=== PATIENT | male | born 1970 | race Caucasian/White ===

== ENCOUNTER 2020-11-11 12:40 | Emergency (ER) | payer OTHER, SELFPAY ==
--- NOTE | ~2020-11-11 | XR_ITS ---
EXAMINATION: XR CHEST CLINICAL INFORMATION: Shortness of breath and fever COMPARISON: None TECHNIQUE: Frontal view of the chest was obtained. FINDINGS: Cardiac silhouette is normal in size. The lungs are well aerated. No lobar consolidation. No pleural effusion or pneumothorax. No acute osseous abnormality. XR/XR chest 1V IMPRESSION: No acute pulmonary pathology.
[2020-11-11 13:09] VITALS: BP 120/70; PULSE 122; RESP 19; TEMP 38.1; O2SAT 96; BMI 47.3
--- NOTE | 2020-11-11 13:49 | ED.FEVER ---
HPI - Fever General Chief Complaint: Fever Stated Complaint: FEVER HEADACHE Time Seen by Provider: 11/11/20 13:32 Source: patient Mode of arrival: ambulatory Limitations: no limitations History of Present Illness HPI Narrative: 50 y/o male presenting with 4 days of fever, chills and increased urinary frequency with dysuria. Tmx 101 at home. He reports two days ago he also started with generalized weakness, fatigue and decreased appetite. He has been SOB with exertion today with persistent weakness prompting ER evaluation. He has never had a UTI before. He has no back pain or abdominal pain. He reports nausea but not vomiting or diarrhea. He is not sexually active. No testicular pain. MD elicited complaint: fever and weakness Onset (ago): day(s) (4) Measured temperature: 101 F Exacerbating factors: nothing Relieving factors: rest Associated symptoms: chills, myalgias, headache, shortness of breath, dysuria and night sweats Treatments prior to arrival fever: none Related Data Previous Rx's Medication Instructions Recorded levofloxacin 750 mg PO DAILY 7 Days #7 tab 11/11/20 Allergies Allergy/AdvReac Type Severity Reaction Status Date / Time Seasonal Allergies Allergy Itchy Eyes Verified 11/11/20 14:50 Review of Systems Review of Systems: Constitutional: No Fever, No Chills ENT/Mouth: No sore throat, No Rhinorrhea, No Swallowing Difficulty Eyes: No Eye Pain, No Swelling, No Redness Cardiovascular: No Chest Pain, No SOB, No Orthopnea, No Edema Respiratory: No Cough, No Sputum, No Wheezing, No dyspnea Gastrointestinal: No Nausea, No Vomiting, No Diarrhea, No abdominal Pain, No Hematochezia, No Melena Genitourinary: No Dysuria, No Urinary Frequency, No Hematuria Musculoskeletal: No joint pain, No Myalgias Skin: No Skin Lesions, No rash Neuro: No Weakness, No Numbness, No Dizziness, No Headache Psych: No Anxiety/Panic, No Depression Heme/Lymph: No Bruising, No Lymphadenopathy Endocrine: No Polyuria, No Polydipsia [facility] Past Medical History Medical History (Updated 11/11/20 @ 17:23 by DORIS Jorge) FH: cholecystectomy Obesity (BMI 35.0-39.9 without comorbidity) Social History Social History Alcohol intake: current Alcohol intake frequency: holidays/special occasions only Smoking Status: Never smoker Use of substances other than those prescribed or required for medical reasons: No Advance Directives: No Advance Directives Information Provided: No Physical Exam Vital Signs: Vital Signs: Last Vital Signs Temp 99.1 F 11/11/20 16:51 Pulse 95 11/11/20 16:51 Resp 18 11/11/20 16:51 BP 119/53 L 11/11/20 16:51 Pulse Ox 95 11/11/20 16:51 Body Mass Index 47.3 Appearance: Alert. Oriented X3. No acute distress. Eyes: Pupils equal, round and reactive to light. ENT: Pharynx normal. Neck: Normal inspection. Neck supple. CVS: tachycar Pulses normal. Respiratory: No respiratory distress. Breath sounds normal. Abdomen: Soft and nontender. +BS x4 Skin: Skin warm and dry. Normal skin color. Normal skin turgor. No rashes. Extremities: No lower extremity edema. Neuro: Oriented X 3. No motor deficit. No sensory deficit. Course Course Course Narrative: 50 y/o male with no significant medial history presenting with fever, chills, malaise, generalized weakness and urinary symptoms. Concern for UTI. Febrile 100.5 with HR 120s on arrival. Mild SOB walking in, otherwise appears non-toxic. Will get cultures, labs, UA and hydrate with IVF and give Tylenol. Reevaluation(s) Reevaluation #1: UA + for infection. Rocephin and 2nd liter ordered. BP remains stable. Lactic acid normal. WBC 18K. Clinical presentation consistent with sepsis. He is non-toxic appearing. No signs of organ dysfunction at this time. Reevaluation #2: Normal renal function. He has no abdominal pain, back pain, nausea or vomiting. Doubt pyelonephritis at this time. Will hold off on CT scan for now. HR improved to low 100's after 2L IVF. Tbili/Dbili mildly elevated with normal LFTs. He is s/p cholecystectomy and has no RUQ tenderness. Reevaluation #3: Patient is starting to feel better with IV hydration. Getting 2nd liter now and IV abx are in. His HR are improved. NO clinical evidence of severe sepsis. We discussed admission vs d/c home with PO antibiotics. Case was also d/w Dr. Be. Patient would prefer to be discharged home. He is requesting a 3rd liter IVF and he was given PO trial. He continue to have no abdominal pain or vomiting. Reasonable to send home with PO levaquin and follow up with PCP with strict instructions to return if symptoms worsening. Will reassess in 1 hour. Signed out to Courtney Quevedo who will re-evaluate with plans for d/c if remains stable. MDM - Fever Lab Data Result diagrams: 11/11/20 14:41 11/11/20 14:41 Labs: Lab Results 11/11/20 11/11/20 11/11/20 Range/Units 14:40 14:41 14:41 WBC 18.1 H (4.8-10.8) X10*3/uL RBC 5.16 (4.60-5.80) X10*6/uL Hgb 14.4 (14.0-18.0) g/dl Hct 43.8 (42-52) % MCV 84.9 (80-98) fL MCH 27.9 (27.0-33.0) pg MCHC 32.9 (31.0-36.0) g/dl RDW 14.0 (11.0-16.0) % Plt Count 256 (160-400) X10*3/uL MPV 11.0 (9.4-12.4) fL Immature Gran % (Auto) 0.7 H (0.0-0.4) % Neut % (Auto) 90.5 H (45-73) % Lymph % (Auto) 4.3 L (20-40) % [place] % (Auto) 3.7 (2-11) % Eos % (Auto) 0.6 (0-4) % Baso % (Auto) 0.2 (0-2) % Lymph # (Auto) 0.8 L (1.2-4.9) X10*3/uL [place] # (Auto) 0.7 (0.1-1.2) X10*3/uL Eos # (Auto) 0.1 (0.0-0.4) X10*3/uL Baso # (Auto) 0.0 (0.0-0.2) X10*3/uL Abs Immat Gran (auto) 0.12 H (0.00-0.03) X10*3/uL Absolute Neuts (auto) 16.4 H (2.0-8.3) X10*3/uL Absolute Nucleated RBC 0.000 (0.0-0.012) X10*3/uL Nucleated RBC % (auto) 0.0 (0.0-0.2) /100WBC Smear Tech's Comments VERIFIED Sodium 136 (135-145) mmol/L Potassium 3.8 (3.3-5.1) mmol/L Chloride 99 (96-108) mmol/L Carbon Dioxide 25 (22-29) mmol/L Anion Gap 16 (12-20) BUN 15 (9-16) mg/dL Creatinine 1.22 (0.5-1.4) mg/dL Estim Creat Clear Calc 106.2 Estimated GFR > 60 Random Glucose 131 H (60-115) mg/dL Lactic Acid (0.5-2.0) mmol/L Calcium 9.0 (8.4-10.2) mg/dL Magnesium 2.1 (1.6-2.6) mg/dL Total Bilirubin 1.4 H (0.0-1.0) mg/dL Direct Bilirubin 0.6 H (0.0-0.5) mg/dL AST 16 (5-37) U/L ALT 19 (0-40) U/L Alkaline Phosphatase 85 (39-117) U/L Total Protein 8.3 H (6.5-8.0) g/dL Albumin 4.3 (3.5-5.0) g/dL Urine Color Urine Appearance Urine pH (5.0-8.0) Ur Specific [place] (1.005-1.025) Urine Protein (NEG-TRACE) MG/DL Urine Glucose (UA) (NEG) MG/DL Urine Ketones (NEG) MG/DL Urine Blood (NEG) Urine Nitrite (NEG) Ur Leukocyte Esterase (NEG) Urine RBC (0) /HPF Urine WBC (0-4) /HPF Ur Squamous Epith Cells /LPF Urine Bacteria /LPF Coronavirus (PCR) NEGATIVE (Negative) Influenza Type A (PCR) NEGATIVE (Negative) Influenza Type B (PCR) NEGATIVE (Negative) RSV RNA Qual (PCR) NEGATIVE (Negative) 11/11/20 11/11/20 Range/Units 14:41 14:42 WBC (4.8-10.8) X10*3/uL RBC (4.60-5.80) X10*6/uL Hgb (14.0-18.0) g/dl Hct (42-52) % MCV (80-98) fL MCH (27.0-33.0) pg MCHC (31.0-36.0) g/dl RDW (11.0-16.0) % Plt Count (160-400) X10*3/uL MPV (9.4-12.4) fL Immature Gran % (Auto) (0.0-0.4) % Neut % (Auto) (45-73) % Lymph % (Auto) (20-40) % [place] % (Auto) (2-11) % Eos % (Auto) (0-4) % Baso % (Auto) (0-2) % Lymph # (Auto) (1.2-4.9) X10*3/uL [place] # (Auto) (0.1-1.2) X10*3/uL Eos # (Auto) (0.0-0.4) X10*3/uL Baso # (Auto) (0.0-0.2) X10*3/uL Abs Immat Gran (auto) (0.00-0.03) X10*3/uL Absolute Neuts (auto) (2.0-8.3) X10*3/uL Absolute Nucleated RBC (0.0-0.012) X10*3/uL Nucleated RBC % (auto) (0.0-0.2) /100WBC Smear Tech's Comments Sodium (135-145) mmol/L Potassium (3.3-5.1) mmol/L Chloride (96-108) mmol/L Carbon Dioxide (22-29) mmol/L Anion Gap (12-20) BUN (9-16) mg/dL Creatinine (0.5-1.4) mg/dL Estim Creat Clear Calc Estimated GFR Random Glucose (60-115) mg/dL Lactic Acid 2.0 (0.5-2.0) mmol/L Calcium (8.4-10.2) mg/dL Magnesium (1.6-2.6) mg/dL Total Bilirubin (0.0-1.0) mg/dL Direct Bilirubin (0.0-0.5) mg/dL AST (5-37) U/L ALT (0-40) U/L Alkaline Phosphatase (39-117) U/L Total Protein (6.5-8.0) g/dL Albumin (3.5-5.0) g/dL Urine Color YELLOW Urine Appearance CLOUDY Urine pH 6.0 (5.0-8.0) Ur Specific [place] >= 1.030 H (1.005-1.025) Urine Protein 2+ H (NEG-TRACE) MG/DL Urine Glucose (UA) NEG (NEG) MG/DL Urine Ketones 40 (NEG) MG/DL Urine Blood 2+ H (NEG) Urine Nitrite POS H (NEG) Ur Leukocyte Esterase 2+ H (NEG) Urine RBC 10-14 H (0) /HPF Urine WBC TNTC H (0-4) /HPF Ur Squamous Epith Cells NONE /LPF Urine Bacteria 2+ /LPF Coronavirus (PCR) (Negative) Influenza Type A (PCR) (Negative) Influenza Type B (PCR) (Negative) RSV RNA Qual (PCR) (Negative) Discharge Plan Discharge Clinical Impression: Acute UTI Patient Disposition: Home, Self-Care Instructions: Urinary Tract Infection in Men (ED) Additional Instructions: Your urine test is consistent with infection. You were given IV hydration in the ER. Increase you oral hydration at home and make sure to drink plenty of water. Take the prescribed antibiotic as directed - starting tomorrow morning. Take motrin and/or tylenol as needed for fevers or body aches. Follow up with your doctor tomorrow. If you have any worsening symptoms at all, come back to the ER for further evaluation. Prescriptions: New levofloxacin 750 mg tablet 750 mg PO DAILY 7 Days Qty: 7 RF: 0 Stand Alone Forms: Work/School Release
[2020-11-11 14:07] VITALS: TEMP 38.3
[2020-11-11] MEDS: Acetaminophen 325 MG TABLET 975 MG PO (14:50)
[2020-11-11 14:52] LABS: Basophils Percent Auto 0.2 % (0-2); Eosinophils Absolute Auto 0.1 X10*3/uL (0.0-0.4); Eosinophils Percent Auto 0.6 % (0-4); Hematocrit 43.8 % (42-52); Hemoglobin 14.4 g/dl (14.0-18.0); Imm Gran Abs Auto 0.12 X10*3/uL (0.00-0.03); Imm Gran Pct Auto 0.7 % (0.0-0.4); Lymphocytes Absolute Auto 0.8 X10*3/uL (1.2-4.9); Lymphocytes Percent Auto 4.3 % (20-40); MANUAL DIFF FLAG SCAN; Mean Corpuscular HGB Conc 32.9 g/dl (31.0-36.0); Mean Corpuscular Hemoglobin 27.9 pg (27.0-33.0); Mean Corpuscular Volume 84.9 fL (80-98); Monocytes Absolute Auto 0.7 X10*3/uL (0.1-1.2); Monocytes Percent Auto 3.7 % (2-11); Neutrophils Absolute Auto 16.4 X10*3/uL (2.0-8.3); Neutrophils Percent Auto 90.5 % (45-73); Platelet Count 256 X10*3/uL (160-400); Red Blood Count 5.16 X10*6/uL (4.60-5.80); SCAN SMEAR FLAG 1; White Blood Count 18.1 X10*3/uL (4.8-10.8)
[2020-11-11 14:53] LABS: Glucose Urine UA NEG (NEG); Leukocyte Esterase Urine 2+ (NEG); Nitrite Urine POS (NEG); Specific Gravity - Urine >= 1.030 (1.005-1.025); UACC Culture Trigger YES; Urine Blood 2+ (NEG); Urine Ketones 40 MG/DL (NEG); Urine Protein 2+ MG/DL (NEG-TRACE)
[2020-11-11] MEDS: 0.9 % Sodium Chloride 1,000 ML 999 ML IVCONT ×2 (14:53→16:48)
[2020-11-11 14:54] LABS: Appearance Urine CLOUDY; Color Urine YELLOW
[2020-11-11 14:55] VITALS: BP 131/80; PULSE 117; RESP 18; O2SAT 99
[2020-11-11 15:02] LABS: Bacteria Urine 2+ /LPF; WBC Urine TNTC /HPF (0-4)
[2020-11-11 15:16] LABS: Alanine Aminotransferase 19 U/L (0-40); Albumin Level 4.3 g/dL (3.5-5.0); Alkaline Phosphatase 85 U/L (39-117); Anion Gap 16 (12-20); Aspartate Amino Transferase 16 U/L (5-37); Bilirubin Direct 0.6 mg/dL (0.0-0.5); Bilirubin Total 1.4 mg/dL (0.0-1.0); Blood Urea Nitrogen 15 mg/dL (9-16); Carbon Dioxide 25 mmol/L (22-29); Chloride 99 mmol/L (96-108); Creatinine Clr Calc Pharmacy 106.2; Estimated Glomerular Filt Rate > 60; Glucose Random 131 mg/dL (60-115); Magnesium 2.1 mg/dL (1.6-2.6); Potassium 3.8 mmol/L (3.3-5.1); Sodium 136 mmol/L (135-145); Total Protein 8.3 g/dL (6.5-8.0)
[2020-11-11 15:31] LABS: SLIDE REVIEW VERIFIED
[2020-11-11 15:40] LABS: Influenza A PCR NEGATIVE (Negative); Influenza B PCR NEGATIVE (Negative); Resp Syncy Virus RNA Qual PCR NEGATIVE (Negative); SARS COV2 PCR INHOUSE NEGATIVE (Negative)
[2020-11-11] MEDS: cefTRIAXone sodium 1 GM in 0.9 % Sodium Chloride 50 ML IV (16:48)
[2020-11-11 16:51] VITALS: BP 119/53; PULSE 95; RESP 18; TEMP 37.3; O2SAT 95
--- NOTE | 2020-11-11 16:52 | PC.NURSE ---
Pt resting comfortably. IVF and antibiotic infusing. VSS. Fever improving after tylenol.
[2020-11-11] MEDS: Lactated Ringers 1,000 ML 999 ML IV (17:57)
== END 2020-11-11 20:56 | disposition home or self-care (01) ==
PROVIDERS: Physician Assistant; Emergency Provider Emergency Medicine
DX: N39.0 Urinary tract infection, site not specified (principal); R50.9 Fever, unspecified; R35.0 Frequency of micturition; Z20.822 Contact with and (suspected) exposure to COVID-19; Z79.899 Other long term (current) drug therapy
CPT/HCPCS: 0241U; 36415; 71045; 80048; 80076; 81001; 81003; 83605; 83735; 85025; 87040; 87086; 87088; 87186; 96360; 96361; 99284; J0696

== ENCOUNTER 2021-07-03 07:48 | Outpatient (REF) | payer OTHER, SELFPAY ==
[2021-07-03 08:27] LABS: COVID-19 Test Negative (Negative)
== END 2021-07-03 07:49 | disposition home or self-care (01) ==
LOC: HO.ED 07:48
PROVIDERS: Visit Provider Internal Medicine
DX: Z20.822 Contact with and (suspected) exposure to COVID-19 (principal)
CPT/HCPCS: 36415; 87635

== ENCOUNTER 2021-07-11 07:52 | Outpatient (REF) | payer OTHER, SELFPAY ==
[2021-07-11 08:35] LABS: COVID-19 Test Negative (Negative)
== END 2021-07-11 07:53 | disposition home or self-care (01) ==
LOC: HO.ED 07:52
PROVIDERS: Internal Medicine; Visit Provider Internal Medicine
DX: Z20.822 Contact with and (suspected) exposure to COVID-19 (principal)
CPT/HCPCS: 36415; 87635

== ENCOUNTER 2022-01-25 03:08 | Emergency (ER) | payer OTHER, SELFPAY ==
--- NOTE | ~2022-01-25 | XR_ITS ---
EXAMINATION: XR HAND, LEFT CLINICAL INFORMATION: Pain over scaphoid. COMPARISON: None TECHNIQUE: PA, lateral, and oblique views of the left hand. FINDINGS: The bones and soft tissues are normal. No fracture. Alignment is anatomic. Joint spaces are maintained. No erosions or soft tissue calcifications. XR/XR hand LT 2V IMPRESSION: Normal left hand.
[2022-01-25 03:18] VITALS: BP 147/76; PULSE 87; RESP 16; TEMP 36.6; O2SAT 98; BMI 48.7
--- NOTE | 2022-01-25 03:29 | ED_ITS ---
HPI - Fall General Chief Complaint: Fall Stated Complaint: fall @ home, L arm pain unable to extend Time Seen by Provider: 01/25/22 03:23 Source: patient Mode of arrival: ambulatory Limitations: no limitations History of Present Illness HPI Narrative: Patient comes to the emergency room complaining of pain in his left arm, fall happened for 24 hours ago. Patient states that when he was coming to work this morning, he noticed that he had trouble stretching his arm, he has been having pain radiating from the thumb up to his forearm. Patient took ibuprofen prior to arrival. Patient fell on an outstretched hand. Patient states that he fell walking down the stairs, slipped. Related Data Previous Rx's Medication Instructions Recorded levofloxacin 750 mg tablet 750 mg PO DAILY 7 days #7 tabs 11/11/20 Allergies Allergy/AdvReac Type Severity Reaction Status Date / Time Seasonal Allergies Allergy Itchy Eyes Verified 01/25/22 03:28 Review of Systems Review of Systems: Constitutional : No Weight loss, No Fever, No Chills, No Night Sweats, No Fatigue, No Malaise ENT/Mouth : No Hearing loss, No Ear Pain, No Nasal Congestion, No Sinus Pain, No Hoarseness, No sore throat, No Rhinorrhea, No Swallowing Difficulty Eyes: No Eye Pain, No Swelling, No Redness, No Foreign Body, No Discharge, No Vision Changes Cardiovascular : No Chest Pain, No SOB, No Dyspnea on Exertion, No Orthopnea, No Edema, No Palpitations Respiratory : No Cough, No Sputum, No Wheezing, No Smoke Exposure, No Dyspnea Gastrointestinal : No Nausea, No Vomiting, No Diarrhea, No Constipation, No abdominal Pain, No Hematochezia, No Melena Genitourinary : no irregular bleeding, No Dysuria, No Urinary Frequency, No Hematuria, No Urinary Incontinence, No Urgency, No Flank Pain, No Urinary Flow Changes, No Hesitancy Musculoskeletal : No joint pain, 2 in the morning quit in stretch completely his left arm, no able to do so. Skin : No Skin Lesions, No rash Neuro : No Weakness, No Numbness, No Paresthesias, No Loss of Consciousness, No Dizziness, No Headache Psych : No Anxiety/Panic, No Depression, No SI/HI/AH/VH, No Social Issues, Heme/Lymph: No Bruising, No Bleeding,No Lymphadenopathy Endocrine : No Polyuria, No Polydipsia, No Temperature Intolerance PMFSH Past Medical History Medical History FH: cholecystectomy Obesity (BMI 35.0-39.9 without comorbidity) Social History Social History Alcohol intake: current Alcohol intake frequency: holidays/special occasions only Advance Directives: No Advance Directives Information Provided: Yes Physical Exam Vital Signs: Vital Signs: Last Vital Signs Temp 97.9 F 01/25/22 03:18 Pulse 87 01/25/22 03:18 Resp 16 01/25/22 03:18 BP 147/76 H 01/25/22 03:18 Pulse Ox 98 01/25/22 03:18 O2 Del Method 01/25/22 03:18 BMI result Body Mass Index 48.7 Const: Other: Appearance: Alert. Oriented X3. No acute distress. Eyes: Pupils equal, round and reactive to light. ENT: Pharynx normal. Neck: Normal inspection. Neck supple. No lymph nodes noted. No crepitus CVS: Normal heart rate and rhythm. Pulses normal. Normal S1 and S2 Respiratory: No respiratory distress. Breath sounds normal. No Wheezing. No rales Abdomen: Soft and nontender. No rigidity. No distention. Skin: Skin warm and dry. Normal skin color. Normal skin turgor. Extremities: No lower extremity edema. No pain in the right extremity, no pain in the left shoulder, able to abduct and adduct with full range of motion, range of motion normal at the elbow, no pain to palpation. Patient is able to flex and extend the wrist. There is no snuffbox tenderness. However there is significant tenderness to palpation over the scaphoid Neuro: Oriented X 3. No motor deficit. No sensory deficit. Moving all extremities. No slurred speech. CN 2 through 12 grossly intact Psych: calm, cooperative, normal affect Course Course Course Narrative: X-rays negative for fracture. However, patient is to follow up with his primary care physician or Orthopedics, he may need to have a 2nd x-ray. Patient's hand was put in a splint. MDM - Fall Imaging Data Hand x-ray.: Radiologist's impression: FINDINGS: The bones and soft tissues are normal. No fracture. Alignment is anatomic. Joint spaces are maintained. No erosions or soft tissue calcifications.? XR/XR hand LT 2V IMPRESSION: Normal left hand Discharge Plan Discharge Clinical Impression: Arm pain, left, Hand pain, left Patient Disposition: Home, Self-Care Instructions: Wrist Injury (ED), Arthralgia (ED) Additional Instructions: Please follow-up with your primary care physician tomorrow. If you have any worsening or new symptoms, please return to the emergency room or call 911 Prescriptions: No Action levofloxacin 750 mg tablet 750 mg PO DAILY 7 Days Qty: 7 0RF Referrals: Gabriela Xiong PA-C [Phys[facility] [employer]] - 1 day (pain over scaphoid)
--- NOTE | 2022-01-25 03:55 | PC.NURSE ---
Put a vulnar splint on pt left hand. pt tolerated well.
== END 2022-01-25 04:31 | disposition home or self-care (01) ==
PROVIDERS: Emergency Provider Emergency Medicine
DX: M79.602 Pain in left arm (principal); M79.642 Pain in left hand; Z79.899 Other long term (current) drug therapy
CPT/HCPCS: 29105; 73120; 99283; 99284

== ENCOUNTER 2022-02-11 09:08 | Outpatient (REF) | payer OTHER, SELFPAY ==
--- NOTE | ~2022-02-11 | XR_ITS ---
EXAMINATION: XR ELBOW, LEFT CLINICAL INFORMATION: Pain. COMPARISON: None TECHNIQUE: AP, lateral, and oblique views of the left elbow. FINDINGS: There is a subtle lucency through the radial neck suspicious for a fracture. However there is no positive anterior or posterior fat pad sign. There is mild prominence of brachioradialis. XR/XR elbow LT min 3V IMPRESSION: Suspect nondisplaced fracture radial neck. The anterior and posterior fat pad sign is normal. Recommend follow-up left elbow x-ray in 1-2 weeks.
== END 2022-02-11 09:09 | disposition home or self-care (01) ==
LOC: HO.HOSX 09:08
PROVIDERS: Visit Provider Physician Assistant
DX: M25.522 Pain in left elbow (principal)
CPT/HCPCS: 73080

== ENCOUNTER 2022-02-25 05:25 | Outpatient (REF) | payer OTHER, SELFPAY ==
[2022-02-25 06:01] LABS: COVID-19 Test Positive (Negative)
== END 2022-02-25 05:26 | disposition home or self-care (01) ==
LOC: HO.LAB 05:25
PROVIDERS: Visit Provider Internal Medicine
DX: Z20.822 Contact with and (suspected) exposure to COVID-19 (principal)
CPT/HCPCS: 87635

== ENCOUNTER 2022-03-12 07:19 | Outpatient (REF) | payer OTHER, SELFPAY ==
--- NOTE | ~2022-03-12 | XR_ITS ---
EXAMINATION: XR ELBOW, LEFT CLINICAL INFORMATION: Pain. COMPARISON: Radiographs dated 01/13/2020 TECHNIQUE: AP, lateral, and oblique views of the left elbow. FINDINGS: Bony mineralization is normal. A healed left radial head fracture is suspected, with possible impaction component. No acute fracture, dislocation or joint effusion is seen. There is no foreign body. XR/XR elbow LT min 3V IMPRESSION: A healed left radial head fracture is suspected, with stable appearance from prior. No acute fracture or dislocation is seen. There is no joint effusion noted.
== END 2022-03-12 07:20 | disposition home or self-care (01) ==
LOC: HO.HOSX 07:19
PROVIDERS: Visit Provider Physician Assistant
DX: M25.522 Pain in left elbow (principal)
CPT/HCPCS: 73080

== ENCOUNTER 2022-04-08 08:33 | Outpatient (REF) | payer OTHER, SELFPAY ==
--- NOTE | ~2022-04-08 | XR_ITS ---
EXAMINATION: XR ELBOW, LEFT CLINICAL INFORMATION: Pain left elbow. Follow-up possible fracture proximal radius. COMPARISON: Radiographs left elbow 03/12/2022, 02/11/2022 TECHNIQUE: AP, lateral, and oblique views of the left elbow. FINDINGS: There is partial hairline fracture base radial head suggested on one of the views. There is no distraction or interval displacement. No dislocation or destructive process. No elbow capsular effusion. XR/XR elbow LT min 3V IMPRESSION: No change in alignment. No visible intracapsular effusion.
== END 2022-04-08 08:34 | disposition home or self-care (01) ==
LOC: HO.HOSX 08:33
PROVIDERS: Visit Provider Physician Assistant
DX: M25.522 Pain in left elbow (principal)
CPT/HCPCS: 73080

== ENCOUNTER 2022-05-20 05:40 | Outpatient (REF) | payer OTHER, SELFPAY ==
[2022-05-20 06:08] LABS: COVID-19 Test Negative (Negative)
== END 2022-05-20 05:41 | disposition home or self-care (01) ==
LOC: HO.LAB 05:40
PROVIDERS: Visit Provider Internal Medicine
DX: Z20.822 Contact with and (suspected) exposure to COVID-19 (principal)
CPT/HCPCS: 87635

== ENCOUNTER 2022-09-22 08:04 | Outpatient (REF) | payer OTHER, SELFPAY ==
[2022-09-22 08:21] LABS: MANUAL DIFF FLAG NO
[2022-09-22 08:49] LABS: Basophils Absolute Auto 0.1 X10*3/uL (0.0-0.2); Basophils Percent Auto 0.8 % (0-2); Eosinophils Absolute Auto 0.2 X10*3/uL (0.0-0.4); Eosinophils Percent Auto 1.7 % (0-4); Hematocrit 40.8 % (42.0-52.0); Hemoglobin 13.1 g/dl (14.0-18.0); Imm Gran Abs Auto 0.05 X10*3/uL (0.00-0.03); Imm Gran Pct Auto 0.5 % (0.0-0.4); Lymphocytes Absolute Auto 2.7 X10*3/uL (1.2-4.9); Lymphocytes Percent Auto 27.1 % (20-40); Mean Corpuscular HGB Conc 32.1 g/dl (31.0-36.0); Mean Corpuscular Hemoglobin 27.1 pg (27.0-33.0); Mean Corpuscular Volume 84.3 fL (80.0-98.0); Mean Platelet Volume 10.5 fL (9.4-12.4); Monocytes Absolute Auto 0.6 X10*3/uL (0.1-1.2); Monocytes Percent Auto 5.6 % (2-11); Neutrophils Absolute Auto 6.5 x10*3/uL (2.0-8.3); Neutrophils Percent Auto 64.3 % (45-73); Platelet Count 342 X10*3/uL (160-400); Red Blood Count 4.84 X10*6/uL (4.60-5.80); Red Cell Distribution Width 13.4 % (11.0-16.0); White Blood Count 10.1 X10*3/uL (4.8-10.8)
[2022-09-22 09:20] LABS: Estimated Average Glucose 131 mg/dL; Hemoglobin A1c % 6.2 %
[2022-09-22 09:29] LABS: Alanine Aminotransferase 17 U/L (0-40); Albumin Level 4.1 g/dL (3.5-5.0); Alkaline Phosphatase 60 U/L (39-117); Anion Gap 15 (12-20); Aspartate Amino Transferase 15 U/L (5-37); Bilirubin Total 0.4 mg/dL (0.0-1.0); Blood Urea Nitrogen 17 mg/dL (9-16); Calcium 9.1 mg/dL (8.4-10.2); Carbon Dioxide 24 mmol/L (22-29); Chloride 108 mmol/L (96-108); Cholesterol 186 mg/dL; Estimated Glomerular Filt Rate > 60; Glucose Random 92 mg/dL (60-115); HDL Cholesterol 35 mg/dL; LDL Cholesterol Calculated 128 mg/dl; Potassium 4.6 mmol/L (3.3-5.1); Sodium 142 mmol/L (135-145); Total Protein 7.6 g/dL (6.5-8.0); Triglycerides 118 mg/dL
[2022-09-22 09:34] LABS: Thyroid Stimulating Hormone 2.38 uIU/mL (0.32-4.0)
== END 2022-09-22 08:05 | disposition home or self-care (01) ==
LOC: HO.LAB 08:04
PROVIDERS: Visit Provider Nurse Practitioner
DX: Z00.00 Encounter for general adult medical examination without abnormal findings (principal)
CPT/HCPCS: 36415; 80053; 80061; 83036; 84443; 85025

== ENCOUNTER 2023-05-24 11:26 | Outpatient (REF) | payer OTHER, SELFPAY ==
[2023-05-24 11:49] LABS: MANUAL DIFF FLAG NO
[2023-05-24 12:44] LABS: Basophils Absolute Auto 0.1 X10*3/uL (0.0-0.2); Basophils Percent Auto 0.7 % (0-2); Eosinophils Absolute Auto 0.3 X10*3/uL (0.0-0.4); Eosinophils Percent Auto 2.3 % (0-4); Hematocrit 40.8 % (42.0-52.0); Hemoglobin 13.3 g/dl (14.0-18.0); Imm Gran Abs Auto 0.06 X10*3/uL (0.00-0.03); Imm Gran Pct Auto 0.6 % (0.0-0.4); Lymphocytes Percent Auto 37.8 % (20-40); Mean Corpuscular HGB Conc 32.6 g/dl (31.0-36.0); Mean Corpuscular Hemoglobin 26.9 pg (27.0-33.0); Mean Corpuscular Volume 82.6 fL (80.0-98.0); Mean Platelet Volume 10.3 fL (9.4-12.4); Monocytes Absolute Auto 0.7 X10*3/uL (0.1-1.2); Monocytes Percent Auto 6.6 % (2-11); Neutrophils Absolute Auto 5.5 x10*3/uL (2.0-8.3); Platelet Count 331 X10*3/uL (160-400); Red Blood Count 4.94 X10*6/uL (4.60-5.80); Red Cell Distribution Width 13.2 % (11.0-16.0); White Blood Count 10.6 X10*3/uL (4.8-10.8)
[2023-05-24 13:15] LABS: Alanine Aminotransferase 15 U/L (0-40); Albumin Level 4.2 g/dL (3.5-5.0); Alkaline Phosphatase 56 U/L (39-117); Anion Gap 15 (12-20); Aspartate Amino Transferase 17 U/L (5-37); Bilirubin Total 0.4 mg/dL (0.0-1.0); Blood Urea Nitrogen 15 mg/dL (9-16); Calcium 9.1 mg/dL (8.4-10.2); Carbon Dioxide 24 mmol/L (22-29); Chloride 105 mmol/L (96-108); Estimated Glomerular Filt Rate > 60; Glucose Random 87 mg/dL (60-115); Potassium 3.6 mmol/L (3.3-5.1); Sodium 140 mmol/L (135-145); Total Protein 8.2 g/dL (6.5-8.0)
[2023-05-24 13:17] LABS: Rheumatoid Factor < 13.0 IU/mL (<15.0)
[2023-05-24 13:32] LABS: Erythrocyte Sedimentation Rate 22 MM/HR (0-15)
[2023-05-24 13:43] LABS: Uric Acid 5.1 mg/dL (3.4-7.0)
[2023-05-26 02:58] LABS: Lyme Abs Screen <0.90 index
== END 2023-05-24 11:27 | disposition home or self-care (01) ==
LOC: HO.LAB 11:26
PROVIDERS: Visit Provider Family Medicine
DX: M25.50 Pain in unspecified joint (principal)
CPT/HCPCS: 36415; 80053; 84550; 85025; 85652; 86140; 86431; 86617; 86618

== ENCOUNTER 2023-07-01 07:43 | Outpatient (REF) | payer OTHER, SELFPAY ==
[2023-07-01 09:25] LABS: Erythrocyte Sedimentation Rate 14 MM/HR (0-15)
[2023-07-01 10:24] LABS: Rheumatoid Factor < 13.0 IU/mL (<15.0)
[2023-07-02 06:18] LABS: Lyme Abs Screen <0.90 index
[2023-07-04 13:18] LABS: Gliadin Deamidated IgA Ab <1.0 U/mL; Gliadin Deamidated IgG Ab <1.0 U/mL
[2023-07-05 09:38] LABS: Anti Nuclear Antibody Screen POSITIVE (NEGATIVE); Anti Nuclear Antibody Titer 1:40 titer
== END 2023-07-01 07:44 | disposition home or self-care (01) ==
LOC: HO.LAB 07:43
PROVIDERS: Visit Provider Family Medicine
DX: M25.50 Pain in unspecified joint (principal)
CPT/HCPCS: 36415; 85652; 86038; 86039; 86258; 86431; 86617; 86618

== ENCOUNTER 2023-09-06 08:32 | Outpatient (AMB) | payer OTHER, SELFPAY ==
--- NOTE | 2023-09-06 08:43 | A.OFFVIS_ITS ---
Intake Vital Signs 09/06/23 08:44 Height 5 ft 10 in Weight 318 lb 5.56 oz BMI 45.7 BP 132/70 Blood Pressure Location Rt brachial Position Sitting Pulse 93 Pulse Source Pulse Oximeter Temp 97.9 F Temp Source Skin Pulse Oximetry (%) 96 Oxygen Delivery Method Room Air Intake Visit Reasons: joint pain/[employer] [facility] employee Intake Note: New patient presents today for consult. C/o joint pain in multiple sites. Pain started approx January 2023. Has tried nsaids. 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 The condition started approximately January of 2023 when he started having left middle finger pain and stiffness, as well as triggering. This lasted 3-4 days then it migrated to his right middle finger, similar symptoms. Then he would have left ankle pain for a few days then it migraines to his right knee. He was having migratory joint pain for a few months, involving his shoulders, elbows, knees usually only affecting 1 joint until about 1-2 months ago when he started having additive joints. Most recently he was having bilateral middle finger pain. He did not notice any swelling. States that he had sciatica about 20 years ago that was treated with rest and anti- inflammatories, denies ever doing chiropractor manipulation, physical therapy or injections. Stated that for the last month or so has been having almost persistent right lower back, right buttock pain radiating down his right lower extremity all the way the top of his right foot. He states that those symptoms can come on randomly, they are not particularly better or worse when he wakes up or during activity. Patient takes ibuprofen 800 mg Twice daily which helps significantly. He denies any rashes. Denies any fevers or weight loss. Denies any history suggestive of uveitis. 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 He mentions that his mother had ankylosing spondylitis and arthritis of her back. She required surgery for her back. States that she was on gabapentin. He does not call whether she was on DMARDs. [facility] Medical History (Updated 09/06/23 @ 09:32 by Joe Alonso MD) Pain in joint, multiple sites Obesity (BMI 35.0-39.9 without comorbidity) Surgical History H/O wisdom tooth extraction Hx of cholecystectomy Family History Maternal Grandmother Dementia Mother Osteoarthritis Ankylosing spondylitis Aortic aneurysm Maternal Grandfather Lung tumor Father Pancreatic cancer Social History Household Members: None Alcohol intake: current Alcohol intake frequency: holidays/special occasions only Patient Tobacco Use Status: Former Tobacco user Current occupational status: employed 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 [employer] [facility] [place] Review of Systems Const Reports weight gain Eyes Reports dry eyes, Reports itchy eyes and Reports requires corrective lenses Musc Reports back pain, Reports arthralgias, Denies joint swelling, Reports limited range of motion, Reports radiating pain into limb and Reports stiffness Skin/Breast Denies rash Aller/Immun Reports itchy eyes Physical Exam Vital Signs: Last Vital Signs Temp 97.9 F 09/06/23 08:44 Pulse 93 09/06/23 08:44 BP 132/70 09/06/23 08:44 Pulse Ox 96 09/06/23 08:44 Oxygen Delivery Method Room Air 09/06/23 08:44 BMI result Body Mass Index 45.7 Const General: cooperative, healthy appearing and comfortable Nutritional Appearance: obese morbidly obese Orientation/consciousness: patient oriented x3 Limitations: no limitations HEENT Head: Yes normocephalic and Yes atraumatic Mouth: moist mucous membranes Resp Effort & Inspection: normal respiratory effort and able to speak in complete sentences Auscultation: clear to auscultation bilaterally Cardio Rate: regular rate Rhythm: regular rhythm Skin General skin exam: no rashes or lesions noted Neuro General: patient oriented x3 Extrem Other: Minimal right middle finger swelling has 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 due to some right middle finger weakness Right middle finger pain with full extension No tender flexor or extensor tendons both hands on exam Tenderness upon palpation of right lateral epicondyle and pain with full right elbow flexion Negative resisted wrist extension test Negative rotator cuff provocative maneuvers bilaterally Negative Speed's test bilaterally Bilateral nail ridges Normal nailfold capillaroscopy Maureen test 10-15 cm Negative straight leg raise test bilaterally Right hip, lower back and right buttock pain with BILLY test on the right Minimal right knee warmth No ankle swelling or tenderness bilaterally Negative MTP squeeze test bilaterally Assessment & Plan Assessment & Plan (1) Pain in joint, multiple sites: Code(s): M25.50 - Pain in unspecified joint Plan: This is a 52-year-old male who presents for evaluation of migratory and additive joint pain and stiffness. There is questionable history of ankylosing spondylitis in his mother. Clinical picture suspicious for new onset inflammatory arthritis. Will check x-rays of involved joints. Order comprehensive serology to screen for underlying autoimmune rheumatic disease. Patient can continue to take 800 mg Twice daily for now as it seems to help him. Follow-up in 5 weeks Plan I spent 47 minutes reviewing patient's chart, evaluating patient, ordering diagnostic workup, counseling patient and documenting in the chart Orders: Orders Comprehensive Met. Panel Today M45.9 - Ankylosing spondylitis of unspecified sit es in spine Hepatitis A,B,C Profile Today Z11.59 - Encounter for screening for other viral diseases Cyclic Citrullinated Peptide Today M25.441 - Effusion, right hand HLA B27 Today M45.9 - Ankylosing spondylitis of unspecified sites in spine XR knee RT 3V Today M45.9 - Ankylosing spondylitis of unspecified sites in spine XR lumbar spine 4V min Today M45.9 - Ankylosing spondylitis of unspecified sites in spine XR sacroiliac joint min 3V Today M45.9 - Ankylosing spondylitis of unspecified sites in spine XR elbow RT min 3V Today M45.9 - Ankylosing spondylitis of unspecified sites in spine Anti Extractable Nuclear Ag Today M32.9 - Systemic lupus erythematosus, unspecified UA w Microscopic Today M32.9 - Systemic lupus erythematosus, unspecified Complete Blood Count Auto Diff Today M45.9 - Ankylosing spondylitis of unspecified sites in spine C Reactive Protein Today M45.9 - Ankylosing spondylitis of unspecified sites in spine Erythrocyte Sedimentation Rate Today M45.9 - Ankylosing spondylitis of unspecified sites in spine Immunofixation Pnl, Serum Today M45.9 - Ankylosing spondylitis of unspecified sites in spine Protein Electrophoresis, Serum Today M45.9 - Ankylosing spondylitis of unspecified sites in spine T Spot TB Today Z11.7 - Encounter for testing for latent tuberculosis infection XR knee LT 3V Today M45.9 - Ankylosing spondylitis of unspecified sites in spine XR knee standing BI Today M45.9 - Ankylosing spondylitis of unspecified sites in spine XR elbow LT min 3V Today M45.9 - Ankylosing spondylitis of unspecified sites in spine Anti DNA DS Antibody Today M32.9 - Systemic lupus erythematosus, unspecified Complement C3 Today M32.9 - Systemic lupus erythematosus, unspecified Complement C4 Today M32.9 - Systemic lupus erythematosus, unspecified Protein Creatinine Ratio, Ur Today M32.9 - Systemic lupus erythematosus, unspecified Sjogren's Antibodies Today M32.9 - Systemic lupus erythematosus, unspecified Coding Level of Care Code New Pt Level 4 (62358) Diagnoses Pain in joint, multiple sites M25.50
[2023-09-06 08:44] VITALS: BP 132/70; PULSE 93; TEMP 36.6; O2SAT 96; BMI 45.7
== END 2023-09-06 09:23 | disposition home or self-care (01) ==
PROVIDERS: Visit Provider Student in an Organized Health Care Education/Training Program
DX: M25.50 Pain in unspecified joint (principal)
CPT/HCPCS: 99204

== ENCOUNTER 2023-09-06 08:32 | Outpatient (REF) | payer OTHER, SELFPAY ==
--- NOTE | ~2023-09-06 | XR_ITS ---
EXAMINATION: XR ELBOW, RIGHT CLINICAL INFORMATION: Ankylosing spondylitis. COMPARISON: None available. TECHNIQUE: AP, lateral, and oblique views of the right elbow. FINDINGS: The bones and soft tissues are normal. No fracture or joint effusion. Alignment is anatomic. Joint spaces are maintained. XR/XR elbow LT min 3V IMPRESSION: Normal right elbow. EXAMINATION: XR ELBOW, LEFT CLINICAL INFORMATION: Ankylosing spondylitis. COMPARISON: Radiographs dated 04/08/2022. TECHNIQUE: AP, lateral, and oblique views of the left elbow. FINDINGS: The bones and soft tissues are normal. No fracture or joint effusion. Alignment is anatomic. Joint spaces are maintained. IMPRESSION: Normal left elbow.
--- NOTE | ~2023-09-06 | XR_ITS ---
EXAMINATION: XR ELBOW, RIGHT CLINICAL INFORMATION: Ankylosing spondylitis. COMPARISON: None available. TECHNIQUE: AP, lateral, and oblique views of the right elbow. FINDINGS: The bones and soft tissues are normal. No fracture or joint effusion. Alignment is anatomic. Joint spaces are maintained. XR/XR elbow RT min 3V IMPRESSION: Normal right elbow. EXAMINATION: XR ELBOW, LEFT CLINICAL INFORMATION: Ankylosing spondylitis. COMPARISON: Radiographs dated 04/08/2022. TECHNIQUE: AP, lateral, and oblique views of the left elbow. FINDINGS: The bones and soft tissues are normal. No fracture or joint effusion. Alignment is anatomic. Joint spaces are maintained. IMPRESSION: Normal left elbow.
--- NOTE | ~2023-09-06 | XR_ITS ---
EXAMINATION: XR KNEE, RIGHT CLINICAL INFORMATION: Ankylosing spondylitis. COMPARISON: None available. TECHNIQUE: AP, lateral, tunnel, and sunrise views of the right knee. FINDINGS: No fracture or joint effusion. Alignment is anatomic. Joint spaces are maintained. No abnormal soft tissue calcification. XR/XR knee LT 4V IMPRESSION: Normal right knee. EXAMINATION: XR KNEE, LEFT CLINICAL INFORMATION: Ankylosing spondylitis. COMPARISON: None available. TECHNIQUE: Four views of the left knee. FINDINGS: No fracture or joint effusion. Alignment is anatomic. Joint spaces are maintained. No abnormal soft tissue calcification. IMPRESSION: Normal left knee.
--- NOTE | ~2023-09-06 | XR_ITS ---
EXAMINATION: XR LUMBOSACRAL SPINE WITH OBLIQUES CLINICAL INFORMATION: Ankylosing spondylitis. COMPARISON: None available. TECHNIQUE: AP, both oblique, and lateral views of the lumbar spine. Lateral view of the lumbosacral junction. FINDINGS: Vertebral body heights and alignment are normal. At L5-S1, there is moderately severe degenerative disc disease, with disc space narrowing and vacuum disc phenomenon. The remaining disc spaces are relatively well-maintained. No acute fracture or spondylolisthesis is seen. There is no spondylolysis defect on the oblique views. There is multi-level lumbar spondylosis, most pronounced at L5-S1, where it is moderate. The posterior elements are intact. There is facet arthropathy at L5-S1. The paravertebral soft tissues are unremarkable. XR/XR lumbar spine 4V min IMPRESSION: 1. L5-S1, there is moderately severe degenerative disc disease. 2. There is multi-level lumbar spondylosis, most pronounced at L5-S1. 3. There is facet arthropathy at L5-S1.
--- NOTE | ~2023-09-06 | XR_ITS ---
EXAMINATION: XR SACROILIAC JOINTS CLINICAL INFORMATION: Ankylosing spondylitis. COMPARISON: None available. TECHNIQUE: AP and bilateral Judet views of the sacroiliac joints FINDINGS: Bones and soft tissues are normal. No fracture. Alignment is anatomic. Sacroiliac joint spaces are well-maintained without erosions or surrounding sclerosis. XR/XR sacroiliac joint min 3V IMPRESSION: Normal sacroiliac joints.
--- NOTE | ~2023-09-06 | XR_ITS ---
EXAMINATION: XR KNEE, RIGHT CLINICAL INFORMATION: Ankylosing spondylitis. COMPARISON: None available. TECHNIQUE: AP, lateral, tunnel, and sunrise views of the right knee. FINDINGS: No fracture or joint effusion. Alignment is anatomic. Joint spaces are maintained. No abnormal soft tissue calcification. XR/XR knee RT 3V IMPRESSION: Normal right knee. EXAMINATION: XR KNEE, LEFT CLINICAL INFORMATION: Ankylosing spondylitis. COMPARISON: None available. TECHNIQUE: Four views of the left knee. FINDINGS: No fracture or joint effusion. Alignment is anatomic. Joint spaces are maintained. No abnormal soft tissue calcification. IMPRESSION: Normal left knee.
== END 2023-09-06 08:33 | disposition home or self-care (01) ==
LOC: HO.XRAY 08:32
PROVIDERS: PCP Family Medicine; Visit Provider Student in an Organized Health Care Education/Training Program
DX: M45.9 Ankylosing spondylitis of unspecified sites in spine (principal); M32.9 Systemic lupus erythematosus, unspecified
CPT/HCPCS: 72110; 72202; 73080; 73562; 73564

== ENCOUNTER 2023-09-22 07:46 | Outpatient (REF) | payer OTHER, SELFPAY ==
[2023-09-22 08:06] LABS: MANUAL DIFF FLAG NO
[2023-09-22 08:27] LABS: Basophils Absolute Auto 0.1 X10*3/uL (0.0-0.2); Basophils Percent Auto 0.6 % (0-2); Eosinophils Absolute Auto 0.2 X10*3/uL (0.0-0.4); Eosinophils Percent Auto 2.4 % (0-4); Hemoglobin 13.5 g/dl (14.0-18.0); Imm Gran Abs Auto 0.01 X10*3/uL (0.00-0.03); Imm Gran Pct Auto 0.1 % (0.0-0.4); Lymphocytes Absolute Auto 3.1 X10*3/uL (1.2-4.9); Lymphocytes Percent Auto 36.8 % (20-40); Mean Corpuscular HGB Conc 33.8 g/dl (31.0-36.0); Mean Corpuscular Hemoglobin 27.3 pg (27.0-33.0); Mean Platelet Volume 10.6 fL (9.4-12.4); Monocytes Absolute Auto 0.5 X10*3/uL (0.1-1.2); Neutrophils Absolute Auto 4.5 x10*3/uL (2.0-8.3); Neutrophils Percent Auto 54.1 % (45-73); Platelet Count 283 X10*3/uL (160-400); Red Blood Count 4.94 X10*6/uL (4.60-5.80); Red Cell Distribution Width 14.2 % (11.0-16.0); White Blood Count 8.3 X10*3/uL (4.8-10.8)
[2023-09-22 08:59] LABS: Alanine Aminotransferase 23 U/L (0-40); Albumin Level 4.2 g/dL (3.5-5.0); Alkaline Phosphatase 61 U/L (39-117); Anion Gap 13 (12-20); Aspartate Amino Transferase 22 U/L (5-37); Bilirubin Total 0.6 mg/dL (0.0-1.0); Blood Urea Nitrogen 10 mg/dL (9-16); C Reactive Protein 0.59 mg/dL (< or = 0.50); Calcium 9.3 mg/dL (8.4-10.2); Carbon Dioxide 25 mmol/L (22-29); Chloride 105 mmol/L (96-108); Estimated Glomerular Filt Rate > 60; Glucose Random 95 mg/dL (60-115); Sodium 139 mmol/L (135-145); Total Protein 8.2 g/dL (6.5-8.0)
[2023-09-22 09:24] LABS: HBS Num1 8.07 mIU/mL (0-7.99); HBc Num1 0.19 S/CO (0.00-0.79); HBsAGNum1 0.38 S/CO (0.00-0.99); Hepatitis A Antibody IgM 0.24 Index (0-0.79); Hepatitis B Core Antibody Nonreactive (Nonreactive); Hepatitis B Surface Antigen Negative (Negative); ~HepC Num1 0.18 S/CO (0.00-0.79); ~Hepatitis A Antibody IgM Nonreactive (Nonreactive); ~Hepatitis C Antibody Nonreactive (Nonreactive)
[2023-09-22 09:41] LABS: Erythrocyte Sedimentation Rate 18 MM/HR (0-15)
[2023-09-22 10:14] LABS: HBS Num2 8.12 mIU/mL (0-7.99); HBS Num3 7.65 mIU/mL (0-7.99); ~Hepatitis B Surface Antibody GRAYZONE (Nonreactive)
[2023-09-23 12:19] LABS: Prot Elec - Albumin 4.3 g/dL (3.8-4.8); Prot Elec - Alpha1 0.3 g/dL (0.2-0.3); Prot Elec - Alpha2 0.9 g/dL (0.5-0.9); Prot Elec - Beta 1 0.6 g/dL (0.4-0.6); Prot Elec - Beta 2 0.5 g/dL (0.2-0.5); Prot Elec - Gamma 1.6 g/dL (0.8-1.7); Prot Elec - Total Protein 8.1 g/dL (6.1-8.1)
[2023-09-23 12:43] LABS: Complement C3 171 mg/dL (82-185)
[2023-09-23 13:28] LABS: Anti DNA DS Antibody 2 IU/mL; Antibody to SS-A Antigen <1.0 NEG AI (<1.0 NEG); Antibody to SS-B Antigen <1.0 NEG AI (<1.0 NEG); SM/Ribonucleoprotein Ab <1.0 NEG AI (<1.0 NEG); Smith Protein <1.0 NEG AI (<1.0 NEG)
[2023-09-23 15:49] LABS: Cyclic Citrullinated Peptide <16 UNITS
[2023-09-24 20:48] LABS: TS Negative Control Passed; TS Panel A 1; TS Panel B 1; TS Positive Control Passed; TSpotTB Negative (Negative)
[2023-09-26 14:42] LABS: IgA 325 mg/dL (47-310); IgG 1615 mg/dL (600-1640); IgM 124 mg/dL (50-300)
[2023-09-26 18:13] LABS: HLA B27 Negative (Negative)
== END 2023-09-22 07:47 | disposition home or self-care (01) ==
LOC: HO.LAB 07:46
PROVIDERS: PCP Family Medicine; Visit Provider Student in an Organized Health Care Education/Training Program
DX: Z11.7 Encounter for testing for latent tuberculosis infection (principal); Z11.59 Encounter for screening for other viral diseases; M25.441 Effusion, right hand; M45.9 Ankylosing spondylitis of unspecified sites in spine; M32.9 Systemic lupus erythematosus, unspecified; Z72.89 Other problems related to lifestyle
CPT/HCPCS: 36415; 80053; 82784; 84165; 85025; 85652; 86140; 86160; 86200; 86225; 86235; 86334; 86481; 86704; 86706; 86709; 86803; 86812; 87340

== ENCOUNTER 2023-10-25 07:59 | Outpatient (REF) | payer OTHER, SELFPAY ==
[2023-10-25 08:32] LABS: Appearance Urine Clear; Color Urine Yellow; Glucose Urine UA Negative (Negative); Leukocyte Esterase Urine Negative (Negative); Nitrite Urine Negative (Negative); PH 5.5 (5.0-9.0); Urine Blood Negative (Negative); Urine Ketones Negative (Negative); Urine Protein Negative (Neg-Trace)
[2023-10-25 08:37] LABS: Bacteria Urine None Seen (None Seen); Hyaline Casts Urine 0-2 /LPF (0-2); RBC Urine 0-2 /HPF (0-2); Squamous Epithelial Cell Urine 0-2 /HPF (0-2); WBC Urine 0-5 /HPF (0-5)
[2023-10-25 09:05] LABS: Creatinine Urine 119.95 mg/dL; Total Protein Urine Random < 7 mg/dL (<12)
== END 2023-10-25 08:00 | disposition home or self-care (01) ==
LOC: HO.LAB 07:59
PROVIDERS: Visit Provider Student in an Organized Health Care Education/Training Program
DX: M32.9 Systemic lupus erythematosus, unspecified (principal)
CPT/HCPCS: 81001; 82570; 84156

== ENCOUNTER 2023-10-27 08:00 | Outpatient (AMB) | payer OTHER, SELFPAY ==
--- NOTE | 2023-10-27 08:02 | A.OFFVIS_ITS ---
Intake Vital Signs 10/27/23 08:05 Height 5 ft 10 in Weight 309 lb 15.519 oz BMI 44.5 BP 118/72 Blood Pressure Location Rt brachial Position Sitting Intake Visit Reasons: Inflammatory arthritis/CONFIRMED Intake Note: Patient last seen 09/06/23 presents today for follow up and test results. 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 He states that he recently finished a 12 day prednisone taper for sciatica symptoms prescribed by his PCP. He states that it was very helpful for his back pain and he felt at least 50% improvement with his peripheral arthritis symptoms. He states that continues to have alternating joint pain in his hands, ankles. Today his right middle finger hurts as well as the left wrist. Initial history: This is a 52-year-old male who presents for evaluation of migratory joint pain. The condition started approximately January of 2023 when he started having left middle finger pain and stiffness, as well as triggering. This lasted 3-4 days then it migrated to his right middle finger, similar symptoms. Then he would have left ankle pain for a few days then it migraines to his right knee. He was having migratory joint pain for a few months, involving his shoulders, elbows, knees usually only affecting 1 joint until about 1-2 months ago when he started having additive joints. Most recently he was having bilateral middle finger pain. He did not notice any swelling. States that he had sciatica about 20 years ago that was treated with rest and anti-inflammatories, denies ever doing chiropractor manipulation, physical therapy or injections. Stated that for the last month or so has been having almost persistent right lower back, right buttock pain radiating down his right lower extremity all the way the top of his right foot. He states that those symptoms can come on randomly, they are not particularly better or worse when he wakes up or during activity. Patient takes ibuprofen 800 mg Twice daily which helps significantly. He denies any rashes. Denies any fevers or weight loss. Denies any history suggestive of uveitis. 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 He mentions that his mother had ankylosing spondylitis and arthritis of her back. She required surgery for her back. States that she was on gabapentin. He does not call whether she was on DMARDs. 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[facility] [place] Review of Systems Const Reports weight gain Musc Reports back pain, Reports arthralgias, Denies joint swelling, Reports limited range of motion, Reports radiating pain into limb and Reports stiffness Skin/Breast Denies rash Physical Exam Vital Signs: Last Vital Signs BP 118/72 10/27/23 08:05 BMI result Body Mass Index 44.5 Const General: cooperative, healthy appearing and comfortable Nutritional Appearance: obese morbidly obese Orientation/consciousness: patient oriented x3 Limitations: no limitations HEENT Head: Yes normocephalic and Yes atraumatic Mouth: moist mucous membranes Resp Effort & Inspection: normal respiratory effort and able to speak in complete sentences Skin General skin exam: no rashes or lesions noted Neuro General: patient oriented x3 Extrem Other: Minimal right middle finger swelling has 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 due to some right middle finger weakness Right middle finger pain with full extension Right middle finger flexor tendon tenderness No tender flexor or extensor tendons both hands on exam Tenderness upon palpation of right lateral epicondyle and pain with full right elbow flexion Negative resisted wrist extension test Negative rotator cuff provocative maneuvers bilaterally Negative Speed's test bilaterally Bilateral nail ridges Normal nailfold capillaroscopy Maureen test 10-15 cm Assessment & Plan Assessment & Plan (1) Inflammatory arthritis: Code(s): M19.90 - Unspecified osteoarthritis, unspecified site Plan: This is a 53-year-old male who presents for evaluation of migratory and additive joint pain and stiffness.? Patient has few swollen joints on exam. Symptoms improving with prednisone taper. Inflammatory markers are mildly elevated. Comprehensive serology is unremarkable. SI joint x-rays are unremarkable. Clinical picture consistent with new onset inflammatory are heart rates a seronegative RA versus a seronegative spondyloarthropathy. Discussed risks and benefits of hydroxychloroquine. Start hydroxychloroquine 200 mg Twice daily. Labs before next visit in 3 month (2) Long-term use of hydroxychloroquine: Code(s): Z79.899 - Other buttermaker continuous churn (current) drug therapy Plan: Discussed risk of retinopathy associated with hydroxychloroquine. Advised patient to make an appointment with an lithographed plate inspector Plan I spent 27 minutes reviewing patient's chart, evaluating patient, ordering diagnostic workup, counseling patient and documenting in the chart Orders: Orders Complete Blood Count Auto Diff 3 Months M19.90 - Unspecified osteoarthritis, unspecified site C Reactive Protein 3 Months M19.90 - Unspecified osteoarthritis, unspecified site Comprehensive Met. Panel 3 Months M19.90 - Unspecified osteoarthritis, unspecified site Erythrocyte Sedimentation Rate 3 Months M19.90 - Unspecified osteoarthritis, unspecified site Medications: New hydroxychloroquine 200 mg PO BID 60 tabs 2RF Coding Level of Care Code Est Pt Level 4 (39147) Diagnoses Inflammatory arthritis M19.90 Long-term use of hydroxychloroquine Z79.899
[2023-10-27 08:05] VITALS: BP 118/72; BMI 44.5
== END 2023-10-27 08:35 | disposition home or self-care (01) ==
PROVIDERS: PCP Family Medicine; Visit Provider Student in an Organized Health Care Education/Training Program
DX: M19.90 Unspecified osteoarthritis, unspecified site (principal); Z79.899 Other long term (current) drug therapy
CPT/HCPCS: 99214

== ENCOUNTER → 2023-10-27 08:00 | Outpatient (BNVA) | payer OTHER, SELFPAY | PROVIDERS: Visit Provider Student in an Organized Health Care Education/Training Program ==

== ENCOUNTER 2024-01-18 11:49 | Day surgery (SDC) | payer OTHER, SELFPAY ==
[2024-01-16 14:13] VITALS: BMI 45.2
--- NOTE | 2024-01-17 10:25 | HO.ANESPROP2 ---
Documented by User: Merary Aponte NP 01/17/24 10:26 HPI - Anesthesia Eval Consult details Narrative: 53yo M for Colonoscopy [facility] Active Problems Active Problems: All Active Problems Long-term use of hydroxychloroquine (Acute) Inflammatory arthritis (Acute) Left radial head fracture (Acute) Pain in joint, multiple sites (Acute) Past Medical History Medical History (Updated 01/16/24 @ 14:05 by Lola Santana RN) Lactose intolerance Arthritis Pain in joint, multiple sites Obesity (BMI 35.0-39.9 without comorbidity) Family History Family History Maternal Grandmother Dementia Mother Osteoarthritis Ankylosing spondylitis Aortic aneurysm Maternal Grandfather Lung tumor Father Pancreatic cancer Surgical History Surgical History H/O wisdom tooth extraction Hx of cholecystectomy Social History Social History Household Members: None Alcohol intake: current Alcohol intake frequency: holidays/special occasions only Patient Tobacco Use Status: Former Tobacco user Advance Directives: No Advance Directives Information Provided: Yes Current occupational status: employed 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 Allergy/AdvReac Type Severity Reaction Status Date / Time mite-Dermatophagoides Allergy Unknown Verified 01/16/24 14:06 chau smiley [dust mite - [place]ag[place]] Seasonal Allergies Allergy Itchy Eyes Verified 10/27/23 08:09 Home Medications ?Medication ?Instructions ?Recorded ?Confirmed ?Last Taken ?Type cholestyramine-aspartame 4 gram 1 ea PO DAILY 09/06/23 01/18/24 Unknown History oral powder for susp in a packet Exam Height,Weight and Vital Signs: Height 5 ft 10 in Weight 142.882 kg Assessment and Plan Assessment Anesthesia Assessment: Chart Reviewed Documented by User: Javier Mello MD 01/18/24 12:39 [facility] Past Medical History Medical History (Updated 01/16/24 @ 14:05 by Lola Santana RN) Lactose intolerance Arthritis Pain in joint, multiple sites Obesity (BMI 35.0-39.9 without comorbidity) Family History Family History Maternal Grandmother Dementia Mother Osteoarthritis Ankylosing spondylitis Aortic aneurysm Maternal Grandfather Lung tumor Father Pancreatic cancer Family history of problems with anesthesia: No Surgical History Surgical History H/O wisdom tooth extraction Hx of cholecystectomy History of Problems with Anesthesia: No Social History Social History Household Members: None Alcohol intake: current Alcohol intake frequency: holidays/special occasions only Patient Tobacco Use Status: Former Tobacco user Advance Directives: No Advance Directives Information Provided: Yes Current occupational status: employed 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 Allergy/AdvReac Type Severity Reaction Status Date / Time mite-Dermatophagoides Allergy Unknown Verified 01/16/24 14:06 sherice chau [dust mite - [place]] Seasonal Allergies Allergy Itchy Eyes Verified 10/27/23 08:09 Home Medications ?Medication ?Instructions ?Recorded ?Confirmed ?Last Taken ?Type cholestyramine-aspartame 4 gram 1 ea PO DAILY 09/06/23 01/18/24 Unknown History oral powder for susp in a packet Exam Airway Mallampati Class: II TM Dist: >3cm Neck ROM: Full Assessment and Plan Assessment Anesthesia Assessment: Anesthesia Plan Discussed Final Anesthetic Review Family History of Problems with Anesthesia: No History of Problems with Anesthesia: No NPO: Yes ASA Class: III Final Preanesthetic Review: No Changes in Pt Med Stat, Meds/Allgs Chart Reviewed, Consent Obtained/Reviewed and Anes Risks/Benef Reviewed Patient Risk: Intermediate Procedure Risk: Low Anesthetic Plan Anesthetic Plan: TIVA Disposition: Standard PACU
--- OUTSIDE RECORDS SUMMARY | 2024-01-18 11:51 | XMS_ITS | Patient Health Record ---
Author Organization [facility] Address [address] [place] [address] Care Team Providers Care Rubber Gasket Inspector Trimmer Name Role Phone MI MIRANDA M.D. Primary Care Provider Nichole caleb Castellanos Jr Billy Unavailable [phone] ALLERGIES Allergen (clinical drug ingredient) Drug/Non Drug Allergy documented on EMR Reaction Allergy Type Onset Date Status Dust Mites Unknown Allergy Active seasonal (uncoded) Unknown Allergy A ctive REASON FOR REFERRAL No Information MEDICATIONS Medication SIG (Take, Route, Frequency, Duration) Notes Start Date End Date Status MiraLax (colon prep) 17 GM/SCOOP mixed with Gatorade or Crystal Light Orally begin at 5:00 p.m. the day before the procedure for 1 day 12/12/2023 Active Cholestyramine Light 4 GM Oral for 30 Active Hydroxychloroquine Sulfate 2 00 MG Oral for 30 Active IMMUNIZATIONS Vaccine Route Administration Date Status Comme nts Influenza Unknown 05/31/2023 Administered SOCIAL HISTORY Tobacco Use: Social History Observation Description Date Details (start date - stop date) Former Smoker NA - NA Sex Assigned At : Social History Observation Description Sex Assigned At Unknown Tobacco Use/Smoking Question Answer Notes Patient is a former smoker Alcohol Screen Question Answer Notes Did you have a drink contain ing alcohol in the past year? Yes How often did you have a dri nk containing alcohol in the past year? 2 to 4 times a month (2 points) How many drinks did you have on a typical day when you were drinking in the past year? 3 or 4 drinks (1 point) How often did you have 6 or more drinks on one occasion in the past year? Never (0 point) Points 3 Interpretation Negative PROBLEMS Problem Type ICD Code Onset Dates Problem Status W/U Status Risk SNOMED Code Notes Problem Colon cancer screening (Z12.11) Active confirmed 939280872 Problem Encounter for other preprocedural examination (Z01.818) Active confirmed 706064206 Problem Loose stools (R19.5) Active confirmed 588119588 VITAL SIGNS Temperature 97.5 degrees Fahrenheit 12/12/2023 Blood pressure diastolic 00 mm Hg 12/12/2023 Height 5 ft 10 in in 12/12/2023 Blood pressure systolic 000 mm Hg 12/12/2023 Weight 315 lb 6 oz lbs 12/12/2023 BMI 45.25 kg/m2 12/12/2023 Encounters Encounter Location Date Provider Diagnosis [facility] [place] [address] [place] [id number] 01/18/2024 Billy Castellanos Jr [facility] [address] [place] [phone] 11/28/2023 Billy Castellanos Jr [facility] [address] [place] [phone] 12/12/2023 Billy Castellanos Jr Colon cancer screening Z12.11 and Loose stools R19.5 ASSESSMENTS Encounter Date Diagnosis Assessment Notes Treatment Notes Treatment Clinical Notes 12/12/2023 Colon cancer screening (ICD-10 - Z12.11) Colonoscopy material was printed 12/12/2023 Loose stools (ICD-10 - R19.5) PLAN OF TREATMENT Future Test Test Name Order Date COLONOSCOPY 12/12/2023 Next Appt Details Provider Name:Billy barksdale Jr, 01/18/2024 01:00:00 PM, [address] [place] [address] , [place], [place], [phone], Insurance Providers Payer Name Payer Address Payer Phone Subscriber Number Group Number Insured Name Patient Relationship to Insured Coverage Start Date Coverage End Date [employer] [address] [address] [place] [address] [id number] SUE MOURA Self - patient is the insured MEDICAL (GENERAL) HISTORY Medical History History ICD Code Inflammatory arthritis Lactose intolerance Elevated BMI Surgical History Surgery Date(Month/Year) Cholecystectomy 1992
--- NOTE | 2024-01-18 12:18 | P.HPSUR_ITS ---
Pre-Procedural Eval Section A - 24 Hr Update-Section A only Date of Service: 01/18/24 Section B - Complete if H&P > 30 days Chief Complaint: screening Details of Present Illness: see H&P no changes Relevant Family History (Specify if Yes): No Relevant Social History: None Present Medications: see Short Stay Collaborative assessment Medical History: No relevant PMH History of Previous Operations: No relevant previous surgery Allergies: Allergies Allergy/AdvReac Type Severity Reaction Status Date / Time mite-Dermatophagoides Allergy Unknown Verified 01/16/24 14:06 chau smiley [dust mite - [place]] Seasonal Allergies Allergy Itchy Eyes Verified 10/27/23 08:09 Review of Systems Sugical H&P ROS: Negative: Constitution, Cardiovascular, Respiratory, Neurological, Psychiatric, Hem-Onc, Allergic/Immunologic, Gastrointestinal, Genitourinary, Musculoskeletal, Integumentary, Endocrine and Eyes/Ears/Nose/Throat Exam Surgical H&P Exam: Normal: HEENT, Normal: Heart, Normal: Lungs, Normal: Extremities, Normal: Abdomen, Normal: Skin and Normal: Neurological Plan Diagnosis/Plan: Unchanged I have reviewed the history and physical and performed a pertinent physical examination on my patient. No changes have occurred unless specified. Time Spent With Patient Time: Total time managing care of this patient today ____ minutes.
[2024-01-18 13:05] VITALS: BMI 44.8
[2024-01-18 13:06] VITALS: BP 144/92; PULSE 95; RESP 18; TEMP 36.8; O2SAT 97
[2024-01-18 13:47] VITALS: BP 101/61; PULSE 93; RESP 16; TEMP 36.1; O2SAT 97
[2024-01-18 14:02] VITALS: BP 112/75; PULSE 93; RESP 16; TEMP 36.1; O2SAT 95
--- NOTE | 2024-01-18 14:35 | OP_ITS ---
DATE OF SERVICE: 01/18/2024 SURGEON: Billy Castellanos MD INDICATIONS: Colon cancer screening. PREOPERATIVE DIAGNOSIS: POSTOPERATIVE DIAGNOSIS: PROCEDURE PERFORMED: Colonoscopy to the terminal ileum with biopsy. ESTIMATED BLOOD LOSS: COMPLICATIONS: ANESTHESIA: Monitored anesthesia care. ASSISTANTS: SPECIMENS: DESCRIPTION OF PROCEDURE: A history and physical was performed. The risks and benefits of the procedure were explained to the patient and informed consent was obtained. The patient was placed in the left lateral decubitus position. A digital rectal exam was performed and was found to be normal. The Olympus pediatric video colonoscope was introduced into the rectum and advanced to the cecum. The cecum was identified by transillumination, palpation, and identification of ileocecal valve. Examination was performed and the scope was removed. He tolerated the procedure well and was returned to recovery area in stable condition. FINDINGS: The terminal ileum was normal. The visualized colonic mucosa was normal. The quality of the prep was good. Four polyps were identified and removed using a biopsy forceps. All measured less than 5 mm. These were located at 30 cm x2, 20 cm and 1 in the rectum. There was mild sigmoid diverticulosis. Retroflexed examination showed moderate-sized internal hemorrhoids. IMPRESSION: Colon polyps. RECOMMENDATION: Follow up the biopsy results. MD CARMEN Caicedo/DAGMARL / [phone]
== END 2024-01-18 14:59 | disposition home or self-care (01) ==
PROVIDERS: Visit Provider Internal Medicine Gastroenterology
PROC: 0DJD8ZZ Inspection of Lower Intestinal Tract, Via Natural or Artificial Opening Endoscopic (ICD-10-PCS; CPT 45378; principal; 2024-01-18 13:00)
DX: Z12.11 Encounter for screening for malignant neoplasm of colon (principal); D12.6 Benign neoplasm of colon, unspecified; K63.5 Polyp of colon; K62.1 Rectal polyp; K57.30 Diverticulosis of large intestine without perforation or abscess without bleeding; K64.8 Other hemorrhoids
CPT/HCPCS: 45380; 88305; J1596; J2704

== ENCOUNTER 2024-01-25 07:54 | Outpatient (REF) | payer OTHER, SELFPAY ==
[2024-01-25 08:09] LABS: MANUAL DIFF FLAG NO
[2024-01-25 08:28] LABS: Basophils Absolute Auto 0.1 X10*3/uL (0.0-0.2); Basophils Percent Auto 0.7 % (0-2); Eosinophils Absolute Auto 0.2 X10*3/uL (0.0-0.4); Eosinophils Percent Auto 2.4 % (0-4); Hematocrit 40.9 % (42.0-52.0); Hemoglobin 13.4 g/dl (14.0-18.0); Imm Gran Abs Auto 0.04 X10*3/uL (0.00-0.03); Imm Gran Pct Auto 0.5 % (0.0-0.4); Lymphocytes Absolute Auto 3.7 X10*3/uL (1.2-4.9); Lymphocytes Percent Auto 41.9 % (20-40); Mean Corpuscular HGB Conc 32.8 g/dl (31.0-36.0); Mean Corpuscular Hemoglobin 27.3 pg (27.0-33.0); Mean Corpuscular Volume 83.3 fL (80.0-98.0); Mean Platelet Volume 10.8 fL (9.4-12.4); Monocytes Absolute Auto 0.6 X10*3/uL (0.1-1.2); Monocytes Percent Auto 6.6 % (2-11); Neutrophils Absolute Auto 4.2 x10*3/uL (2.0-8.3); Neutrophils Percent Auto 47.9 % (45-73); Platelet Count 266 X10*3/uL (160-400); Red Blood Count 4.91 X10*6/uL (4.60-5.80); Red Cell Distribution Width 13.9 % (11.0-16.0); White Blood Count 8.8 X10*3/uL (4.8-10.8)
[2024-01-25 08:58] LABS: Alanine Aminotransferase 22 U/L (0-40); Albumin Level 4.3 g/dL (3.5-5.0); Alkaline Phosphatase 55 U/L (39-117); Anion Gap 12 (12-20); Aspartate Amino Transferase 21 U/L (5-37); Bilirubin Total 0.5 mg/dL (0.0-1.0); Blood Urea Nitrogen 14 mg/dL (9-16); Calcium 8.9 mg/dL (8.4-10.2); Carbon Dioxide 27 mmol/L (22-29); Chloride 105 mmol/L (96-108); Estimated Glomerular Filt Rate > 60; Glucose Random 94 mg/dL (60-115); Sodium 140 mmol/L (135-145); Total Protein 8.2 g/dL (6.5-8.0)
[2024-01-25 09:16] LABS: Erythrocyte Sedimentation Rate 11 MM/HR (0-15)
== END 2024-01-25 07:55 | disposition home or self-care (01) ==
LOC: HO.LAB 07:54
PROVIDERS: PCP Family Medicine; Visit Provider Student in an Organized Health Care Education/Training Program
DX: M19.90 Unspecified osteoarthritis, unspecified site (principal)
CPT/HCPCS: 36415; 80053; 85025; 85652; 86140

== ENCOUNTER 2024-01-26 07:36 | Outpatient (AMB) | payer OTHER, SELFPAY ==
[2024-01-26 07:37] VITALS: BP 122/76; PULSE 82; BMI 46.1
--- NOTE | 2024-01-26 07:37 | MHC.OFFVIS ---
Vital Signs 01/26/24 07:37 Height 5 ft 10 in Weight 321 lb 10.471 oz BMI 46.1 BP 122/76 Blood Pressure Location Rt brachial Position Sitting Pulse 82 Pulse Source Pulse Oximeter Intake Visit Reasons: SpA/CM Intake Note: Patient last seen 10/27/23 presents today for follow up and test results. 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 He has been taking hydroxychloroquine 20 mg Twice daily for the last 3 months. Well-tolerated. He states that some of his joint pains and stiffness improved in his hands and fingers but the moved to his wrists, he continues to have stiffness of his ankles as well. Takes Advil 800 mg in the morning and Tylenol once in the afternoon. He has been walking with a cane due to sciatica. He has been looking for a good chiropractor. Initial history: This is a 52-year-old male who presents for evaluation of migratory joint pain. The condition started approximately January of 2023 when he started having left middle finger pain and stiffness, as well as triggering. This lasted 3-4 days then it migrated to his right middle finger, similar symptoms. Then he would have left ankle pain for a few days then it migraines to his right knee. He was having migratory joint pain for a few months, involving his shoulders, elbows, knees usually only affecting 1 joint until about 1-2 months ago when he started having additive joints. Most recently he was having bilateral middle finger pain. He did not notice any swelling. States that he had sciatica about 20 years ago that was treated with rest and anti-inflammatories, denies ever doing chiropractor manipulation, physical therapy or injections. Stated that for the last month or so has been having almost persistent right lower back, right buttock pain radiating down his right lower extremity all the way the top of his right foot. He states that those symptoms can come on randomly, they are not particularly better or worse when he wakes up or during activity. Patient takes ibuprofen 800 mg Twice daily which helps significantly. He denies any rashes. Denies any fevers or weight loss. Denies any history suggestive of uveitis. 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 He mentions that his mother had ankylosing spondylitis and arthritis of her back. She required surgery for her back. States that she was on gabapentin. He does not call whether she was on DMARDs. [facility] Medical History Lactose intolerance Arthritis Pain in joint, multiple sites Obesity (BMI 35.0-39.9 without comorbidity) Surgical History H/O colonoscopy H/O wisdom tooth extraction Hx of cholecystectomy Family History Maternal Grandmother Dementia Mother Osteoarthritis Ankylosing spondylitis Aortic aneurysm Maternal Grandfather Lung tumor Father Pancreatic cancer Social History Household Members: None Alcohol intake: current Alcohol intake frequency: holidays/special occasions only Patient Tobacco Use Status: Former Tobacco user Current occupational status: employed 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 [employer] [facility] [place] Review of Systems Const Reports weight gain Musc Reports back pain, Reports arthralgias, Denies joint swelling, Reports limited range of motion, Reports radiating pain into limb and Reports stiffness Skin/Breast Denies rash Physical Exam Vital Signs: Last Vital Signs Pulse 82 01/26/24 07:37 BP 122/76 01/26/24 07:37 BMI result Body Mass Index 46.1 Const General: cooperative, healthy appearing and comfortable Nutritional Appearance: obese morbidly obese Orientation/consciousness: patient oriented x3 Limitations: no limitations HEENT Head: Yes normocephalic and Yes atraumatic Mouth: moist mucous membranes Resp Effort & Inspection: normal respiratory effort and able to speak in complete sentences Skin General skin exam: no rashes or lesions noted Neuro General: patient oriented x3 Extrem Other: No active synovitis right hand, right middle finger synovitis resolved Mild right wrist pain with full flexion and extension Left wrist pain with full flexion and extension Left 4th MCP swelling and mild tenderness Bilateral nail ridges Normal nailfold capillaroscopy Assessment & Plan Assessment & Plan (1) Inflammatory arthritis: Comment: dx 10/2023 Code(s): M19.90 - Unspecified osteoarthritis, unspecified site Category: Medical Plan: This is a 53-year-old male who presents for evaluation of migratory and additive joint pain and stiffness. He has been on hydroxychloroquine 200 mg Twice daily for the last 3 months. With some improved joints and some worsening joints. Continues to have some tender joints on exam. Inflammatory markers have normalized. 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 Advised patient to make an appointment with an adult daycare coordinator (3) Sciatica: Code(s): M54.30 - Sciatica, unspecified side Category: Medical Qualifiers: Laterality: unspecified laterality Qualified Code(s): M54.30 - Sciatica, unspecified side Plan: Referred to PT Plan I spent 27 minutes reviewing patient's chart, evaluating patient, ordering diagnostic workup, counseling patient and documenting in the chart Orders: Orders Complete Blood Count Auto Diff 3 Months M1.90 - Unspecified osteoarthritis, unspecified site, Z79.899 - Other marine oil terminal superintendent (current) drug therapy Erythrocyte Sedimentation Rate 3 Months M19.90 - Unspecified osteoarthritis, unspecified site, Z79.899 - Other longterm (current) drug therapy PT Evaluation and Treatment Today M54.30 - Sciatica, unspecified side Comprehensive Met. Panel 3 Months M19.90 - Unspecified osteoarthritis, unspecified site, Z79.899 - Other longterm (current) drug therapy C Reactive Protein 3 Months M19.90 - Unspecified osteoarthritis, unspecified site, Z79.899 - Other longterm (current) drug therapy Medications: Refilled hydroxychloroquine 200 mg PO BID 180 tabs 1RF Coding Level of Care Code Est Pt Level 4 (22217) Diagnoses Inflammatory arthritis M19.90 Long-term use of hydroxychloroquine Z79.899 Sciatica, unspecified laterality M54.30 Laterality: unspecified laterality
== END 2024-01-26 07:55 | disposition home or self-care (01) ==
PROVIDERS: Visit Provider Student in an Organized Health Care Education/Training Program
DX: M19.90 Unspecified osteoarthritis, unspecified site (principal); Z79.899 Other long term (current) drug therapy; M54.30 Sciatica, unspecified side
CPT/HCPCS: 99214

== ENCOUNTER → 2024-01-26 07:36 | Outpatient (BNVA) | payer OTHER, SELFPAY | PROVIDERS: Visit Provider Student in an Organized Health Care Education/Training Program ==

== ENCOUNTER 2024-03-09 08:00 | Outpatient (RCR) | payer OTHER, SELFPAY ==
--- NOTE | 2024-03-30 11:21 | MHC.PT.DC ---
[facility] [place] Office [place] Office [place] Office [address] Yoko Sanchez [address] [phone] F: [phone] F: [phone] F: [phone] F: [phone] Physical Therapy Discharge Report Diagnosis: LBP and R Sciatica Date of Surgery: Date of Evaluation: 02/16/24 Date of Discharge: 03/05/24 Treatments to Date: 6 Cancellations to Date: 3 No Shows to Date: 0 Discharge Status: Patient Elected to Stop Recommend MD Follow-up Discharge Summary: At last attended visit, Suresh reported a flair up of symptoms so treatment was regressed to modalities and gentle stretches. At that time he stated he may trial other treatment options with his MD. He did cancel his last two scheduled visits so formal reassessment was not performed. Electronically signed by: Sandra Rogers PT DPT Please sign and return to therapist. Thank you for your referral.
== END 2024-03-30 11:21 | disposition home or self-care (01) ==
LOC: HO.PT 08:00
PROVIDERS: PCP Family Medicine; Visit Provider Student in an Organized Health Care Education/Training Program
DX: M54.30 Sciatica, unspecified side (principal)
CPT/HCPCS: 97014; 97110; 97140; 97161; 97530; 97535

== ENCOUNTER 2024-04-16 07:15 | Outpatient (REF) | payer OTHER, SELFPAY ==
--- NOTE | ~2024-04-16 | MR_ITS ---
EXAMINATION: MR LUMBAR SPINE WITHOUT CONTRAST CLINICAL INFORMATION: Radiculopathy COMPARISON: None TECHNIQUE: MRI of the lumbar spine was obtained using routine sequences without contrast. FINDINGS: Normal lumbar lordosis is preserved. Trace retrolisthesis at L3-L4 and L4-L5. Vertebral body heights are maintained. 2.9 cm T1 and T2 hypointense lesion centered along the L3 inferior endplate with a peripheral T2 hyperintense rim and corresponding STIR hyperintensity, presumably a degenerative endplate Schmorl's node. Associated cortical irregularity/disruption along the L3 inferior endplate. Smaller opposing L4 superior endplate Schmorl's node with marginal edema. Multilevel disc desiccation with moderate L5-S1 and otherwise milder disc height loss. Multilevel patchy type II Modic endplate changes, most pronounced at L5-S1 and mild type I Modic endplate changes at L4-L5 and L5-S1. Stress-related marrow edema within the left L4 pedicle. Level by level detail as follows: L1-L2: Superiorly and slightly inferiorly migrated paracentral disc extrusion on a background of a small annular disc bulge. Mild spinal canal stenosis. Minimal neural foraminal encroachment. L2-L3: Annular disc bulge with thin superiorly migrated central disc extrusion and bilateral foraminal disc protrusions. Mild to moderate facet arthrosis with ligamentum flavum thickening. No overt spinal canal stenosis. Mild bilateral neural foraminal narrowing. L3-L4: Disc osteophyte complex with paracentral annular fissure and moderate facet arthrosis. No spinal canal stenosis. Moderate bilateral neural foraminal stenosis with slight mass effect along the exiting left greater than right L3 nerves. L4-L5: Left eccentric disc osteophyte complex with shallow central disc protrusion and annular fissure and mild to moderate facet arthrosis. No spinal canal stenosis. Moderate to severe left neural foraminal stenosis with compression of the exiting left L5 nerve. Moderate right neural foraminal stenosis with milder mass effect along the exiting right L4 nerve. L5-S1: Disc osteophyte complex eccentric to the right with superiorly migrated disc extrusion versus sequestration within the right neural foramen. Mild to moderate facet arthrosis. No spinal canal stenosis. Severe right neural foraminal stenosis with compression of the exiting right L5 nerve and disc osteophyte impinging upon the extraforaminal segment, which is asymmetrically enlarged and edematous on the basis of extrinsic compressive neuritis. Mild left neural foraminal stenosis. The conus medullaris terminates at the level of L2. The distal spinal cord is normal in appearance. No epidural fluid collection, hematoma, or mass. No significant abnormalities of the paraspinal musculature. Limited evaluation of the intra-abdominal structures without significant abnormalities. The abdominal aorta is of normal contour and caliber. MR/MR lumbar spine wo con IMPRESSION: 1. Multilevel lumbar spondylosis as described above without high-grade spinal canal stenosis. 2. At L5-S1, there is severe right neural foraminal stenosis with superiorly migrated right foraminal disc extrusion versus sequestration compressing the exiting right L5 nerve and disc osteophyte impinging upon the extraforaminal segment area asymmetric enlargement and edema of the extraforaminal right L5 nerve on the basis of extrinsic compressive neuritis. 3. At L4-L5, there is moderate to severe left neural foraminal stenosis with compression of the exiting left L5 nerve and moderate right neural foraminal stenosis with milder mass effect along the exiting right L4 nerve. 4. At L3-L4, there is moderate bilateral neural foraminal stenosis with slight mass effect along the exiting left greater than right L3 nerves. 5. 2.9 cm lesion centered along the L3 inferior endplate with associated cortical irregularity/disruption along the L3 inferior endplate, presumably an inflamed degenerative endplate Schmorl's node with smaller opposing L4 superior endplate edematous Schmorl's node. 6. Stress-related marrow edema within the left L4 pedicle. Electronically signed by: Mahsa Thomas MD 05/01/2024 02:59 PM EDT
[2024-04-16 08:24] LABS: MANUAL DIFF FLAG NO
[2024-04-16 08:37] LABS: Basophils Absolute Auto 0.1 X10*3/uL (0.0-0.2); Basophils Percent Auto 0.4 % (0-2); Eosinophils Percent Auto 0.2 % (0-4); Hematocrit 42.4 % (42.0-52.0); Hemoglobin 13.8 g/dl (14.0-18.0); Imm Gran Abs Auto 0.15 X10*3/uL (0.00-0.03); Imm Gran Pct Auto 1.3 % (0.0-0.4); Lymphocytes Absolute Auto 2.1 X10*3/uL (1.2-4.9); Lymphocytes Percent Auto 18.2 % (20-40); Mean Corpuscular HGB Conc 32.5 g/dl (31.0-36.0); Mean Corpuscular Hemoglobin 27.7 pg (27.0-33.0); Mean Platelet Volume 9.8 fL (9.4-12.4); Monocytes Absolute Auto 0.5 X10*3/uL (0.1-1.2); Monocytes Percent Auto 4.1 % (2-11); Neutrophils Absolute Auto 8.9 x10*3/uL (2.0-8.3); Neutrophils Percent Auto 75.8 % (45-73); Platelet Count 281 X10*3/uL (160-400); Red Blood Count 4.99 X10*6/uL (4.60-5.80); Red Cell Distribution Width 14.4 % (11.0-16.0); White Blood Count 11.7 X10*3/uL (4.8-10.8)
[2024-04-16 09:09] LABS: Alanine Aminotransferase 14 U/L (0-40); Albumin Level 3.9 g/dL (3.5-5.0); Alkaline Phosphatase 45 U/L (39-117); Anion Gap 13 (12-20); Aspartate Amino Transferase 10 U/L (5-37); Bilirubin Total 0.2 mg/dL (0.0-1.0); Blood Urea Nitrogen 16 mg/dL (9-16); C Reactive Protein 0.25 mg/dL (< or = 0.50); Calcium 9.2 mg/dL (8.4-10.2); Carbon Dioxide 26 mmol/L (22-29); Chloride 105 mmol/L (96-108); Estimated Glomerular Filt Rate > 60; Glucose Random 162 mg/dL (60-115); Potassium 4.6 mmol/L (3.3-5.1); Sodium 139 mmol/L (135-145); Total Protein 7.3 g/dL (6.5-8.0)
[2024-04-16 09:15] LABS: Erythrocyte Sedimentation Rate 9 MM/HR (0-15)
== END 2024-04-16 07:16 | disposition home or self-care (01) ==
LOC: HO.MRI 07:15
PROVIDERS: Student in an Organized Health Care Education/Training Program; PCP Family Medicine; Visit Provider Family Medicine
DX: M54.16 Radiculopathy, lumbar region (principal); M19.90 Unspecified osteoarthritis, unspecified site; Z79.899 Other long term (current) drug therapy
CPT/HCPCS: 36415; 72148; 80053; 85025; 85652; 86140

== ENCOUNTER 2024-04-23 09:50 | Outpatient (AMB) | payer OTHER, SELFPAY ==
--- NOTE | 2024-04-23 09:55 | A.SPINEOV_ITS ---
Intake Visit Reasons: right sciatica Intake Note: Mr. Anand is here today c/o right sided sciatica pain. 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 He is a very nice 53-year-old gentleman who presents to the office today for evaluation of a right sided low back pain with right lower extremity radiculopathy that started in August. He tells me he had a history of sciatica dating back years, generally would stay for a day or so and go away but in August for whatever reason the pain was pretty intense and with shooting down his right leg into his calf, ankle with numbness of his toes. He called the office and was given a prednisone taper, that helped him for a number of weeks. Unfortunately the pain came back and a series of flare-ups right through the summer led him to being on prednisone continuously just so we could continue to work and walk around. If he was taken off the prednisone he would be almost incapacitated to the point where he could not even get out of bed. Even lying in bed was almost impossible. While he is on the steroid 20 mg prednisone dose however, he is able to function. This is currently being weaned down, he is at 10 mg daily currently. Also tried gabapentin but did not feel like it was doing anything. He had tried things like ibuprofen and Tylenol before being started on the steroids. Also takes tramadol. 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 He walks with heating packs on his back. He underwent physical therapy for about 3 weeks but it only made it worse. He has been going to a chiropractor now for about a month and this will help for few days but after the affect is worn off, he is right back to where he started. He also did acupuncture but isn't sure if that is helping. He is here today to see us with a lumbar MRI done at [facility]. Denies any fevers, chills, weight loss or any other constitutional symptoms. No bowel or bladder incontinence. PMH: He has a history of seronegative rheumatoid arthritis, he has been managed here at [facility] with hydroxychloroquine. History of hypertension, cholecystectomy, wisdom teeth removal. Denies any history of heart attacks, strokes, pulmonary, liver, renal, intestinal surgery, back surgery, neck surgery, cancer, bleeding disorders or blood clots. Social hx: He has not smoke, drink use any recreational drugs Medications: Hydroxychloroquine, lisinopril, tramadol, gabapentin, prednisone, cholestyramine Allergies: None Physical exam: Patient is awake alert oriented, he is 5 ft 10, 323 lb, BMI 46, strength and reflexes normal in the lower extremities. Imaging review: Lumbar MRI done at [facility], there is no formal radiology read back on this yet. What I see is that he has multilevel degenerative disc disease, the worst of it seems to be at L5-S1 on the right, there appears to be a herniated disc in the foramen of L5 compressing the right L5 nerve root. There is also an unusual lesion in the L3 vertebral body which has some T2 hypointense features with some surrounding edema. I am not serve this is a Schmorl's node coming from the disc at L3-4, or if this is a atypical hemangioma or some other kind of lesion. Impression: 53-year-old male presents for evaluation of a right L5 radi culopathy which started in August what has been getting progressively worse over time. The only thing that seems to keep it at [place] is prednisone. Unfortunately he has been on it now for about 6 weeks or more. He has been tapering down in his currently at 10 mg daily but it is all that is able to keep him functional. I think his symptoms are coming from the L5-S1 disc herniation in the right L5 foramen, versus a degenerative collapse of the disc causing foraminal narrowing. I will review this with Dr. Harvey, but if indeed this is a disc herniation in the radiologist agrees with us, typically this is something we could do a microdiskectomy, possible far-lateral approach depending on what Dr. Harvey thinks of the anatomy. We did briefly discuss this, risks, benefits, etc.. We also talked about the fact that in anticipation of surgery he would need to wean down further off the steroids for wound healing purposes. We also do not have a radiology read back yet on the MRI and I would like them to give us some clarification about this L3 spot that we see on the T2 imaging. I will call the patient back once I have a chance to get a formal radiology report and review everything with Dr. Harvey. Thank you for allowing us to care for your patient. The total time spent with this visit with this patient was 45 minutes reviewing history, physical exam, lumbar imaging review, and implementation of treatment plan or further diagnostic testing Tate Harvey MD,PhD [facility] Coding Level of Care Code New Pt Level 4 (18710) Diagnoses Lumbar radiculopathy M54.16
== END 2024-04-23 10:43 | disposition home or self-care (01) ==
PROVIDERS: PCP Family Medicine; Visit Provider Physician Assistant
DX: M54.16 Radiculopathy, lumbar region (principal)
CPT/HCPCS: 99204

== ENCOUNTER → 2024-04-23 09:50 | Outpatient (BNVA) | payer OTHER, SELFPAY | PROVIDERS: PCP Family Medicine; Visit Provider Physician Assistant ==

== ENCOUNTER 2024-04-24 07:49 | Outpatient (AMB) | payer OTHER, SELFPAY ==
--- NOTE | 2024-04-24 07:56 | MHC.OFFVIS ---
Vital Signs 04/24/24 07:58 Height 5 ft 10 in Weight 326 lb 4.546 oz BMI 46.8 BP 115/70 Blood Pressure Location Rt brachial Position Sitting Pulse 83 Pulse Source Pulse Oximeter Pulse Oximetry (%) 96 Oxygen Delivery Method Room Air Intake Visit Reasons: RA/AxSpA Intake Note: Patient presents for RA/AxSpA. Allergies mite-Dermatophagoides farinae, chau [dust mite - [place]] Allergy (Verified 04/24/24 07:59) Unknown Seasonal Allergies Allergy (Verified 04/24/24 07:59) Itchy Eyes Medication List - Last Reconciled 04/24/24 by Joe Alonso MD cholestyramine-aspartame 4 gram 1 ea PO DAILY gabapentin 300 mg PO TID hydroxychloroquine 200 mg PO BID lisinopril 5 mg PO DAILY prednisone 10 mg PO DAILY tramadol 25 mg PO QID PRN HPI Comments Details: 53-year-old male with new onset mild seronegative arthritis returns for follow-up. He has been taking hydroxychloroquine 200 mg Twice daily for the last 6 months. Well-tolerated. For the last 3 months he has been having worsening lower back pain, right-sided and radiating down his right lower extremity. He has been on prednisone 20 mg daily, prescribed by his PCP with significant improvement. He had an L-spine MRI a few days ago and evaluated by spine surgery. He was told that he likely has a disc herniation and will likely need surgery. Official read on the MRI has not come back yet. With regards to his peripheral joints, he has not had any complaints Initial history: This is a 52-year-old male who presents for evaluation of migratory joint pain. The condition started approximately January of 2023 when he started having left middle finger pain and stiffness, as well as triggering. This lasted 3-4 days then it migrated to his right middle finger, similar symptoms. Then he would have left ankle pain for a few days then it migraines to his right knee. He was having migratory joint pain for a few months, involving his shoulders, elbows, knees usually only affecting 1 joint until about 1-2 months ago when he started having additive joints. Most recently he was having bilateral middle finger pain. He did not notice any swelling. States that he had sciatica about 20 years ago that was treated with rest and anti-inflammatories, denies ever doing chiropractor manipulation, physical therapy or injections. Stated that for the last month or so has been having almost persistent right lower back, right buttock pain radiating down his right lower extremity all the way the top of his right foot. He states that those symptoms can come on randomly, they are not particularly better or worse when he wakes up or during activity. Patient takes ibuprofen 800 mg Twice daily which helps significantly. He denies any rashes. Denies any fevers or weight loss. Denies any history suggestive of uveitis. 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 He mentions that his mother had ankylosing spondylitis and arthritis of her back. She required surgery for her back. States that she was on gabapentin. He does not call whether she was on DMARDs. COUNT INCLUDES THE [facility] Medical History Lactose intolerance Arthritis Pain in joint, multiple sites Obesity (BMI 35.0-39.9 without comorbidity) Surgical History H/O colonoscopy H/O wisdom tooth extraction Hx of cholecystectomy Family History Maternal Grandmother Dementia Mother Osteoarthritis Ankylosing spondylitis Aortic aneurysm Maternal Grandfather Lung tumor Father Pancreatic cancer Social History Household Members: None Alcohol intake: current Alcohol intake frequency: holidays/special occasions only Patient Tobacco Use Status: Former Tobacco user Current occupational status: employed 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 [employer] Review of Systems [facility] Reports back pain, Reports arthralgias, Denies joint swelling, Reports radiating pain into limb and Reports stiffness Physical Exam Vital Signs: Last Vital Signs Pulse 83 04/24/24 07:58 BP 115/70 04/24/24 07:58 Pulse Ox 96 04/24/24 07:58 Oxygen Delivery Method Room Air 04/24/24 07:58 BMI result Body Mass Index 46.8 Const General: cooperative, healthy appearing and comfortable Nutritional Appearance: obese morbidly obese Orientation/consciousness: patient oriented x3 Limitations: ambulation with cane HEENT Head: Yes normocephalic and Yes atraumatic Mouth: moist mucous membranes Resp Effort & Inspection: normal respiratory effort and able to speak in complete sentences Skin General skin exam: no rashes or lesions noted Neuro General: patient oriented x3 Extrem Other: Walks with a cane There is no active peripheral synovitis today Assessment & Plan Assessment & Plan (1) Inflammatory arthritis: Comment: dx 10/2023 Code(s): M19.90 - Unspecified osteoarthritis, unspecified site Category: Medical Plan: This is a 53-year-old male who presents for evaluation of migratory and additive joint pain and stiffness. He has been on hydroxychloroquine 200 mg Twice daily for the last 6 months. Last visit, 3 months into taking hydroxychloroquine I felt that patient had some improvement in his peripheral arthritis. Today patient has been taking prednisone regularly for his radiculopathy. Obviously this has controlled his inflammatory arthritis. There is no active synovitis on exam today. continue with hydroxychloroquine 200 mg Twice daily Labs before next visit 3 months (2) Long-term use of hydroxychloroquine: Code(s): Z79.899 - Other buttermaker continuous churn (current) drug therapy Category: Medical Plan: Discussed risk of retinopathy associated with hydroxychloroquine. Advised patient to make an appointment with an customer service advisor (3) Lumbar radiculopathy: Code(s): M54.16 - Radiculopathy, lumbar region Category: Medical Plan: Recently evaluated by spine surgery and surgery was discussed. The official MRI read is pending Plan I spent 27 minutes reviewing patient's chart, evaluating patient, ordering diagnostic workup, counseling patient and documenting in the chart Orders: Orders Complete Blood Count Auto Diff 3 Months M19.90 - Unspecified osteoarthritis, unspecified site, Z79.899 - Other buttermaker continuous churn (current) drug therapy Comprehensive Met. Panel 3 Months M19.90 - Unspecified osteoarthritis, unspecified site, Z79.899 - Other fci (current) drug therapy C Reactive Protein 3 Months M19.90 - Unspecified osteoarthritis, unspecified site, Z79.899 - Other fci (current) drug therapy Erythrocyte Sedimentation Rate 3 Months M19.90 - Unspecified osteoarthritis, unspecified site, Z79.899 - Other fci (current) drug therapy Coding Level of Care Code Est Pt Level 4 (43893) Diagnoses Inflammatory arthritis M19.90 Long-term use of hydroxychloroquine Z79.899 Lumbar radiculopathy M54.16
[2024-04-24 07:58] VITALS: BP 115/70; PULSE 83; O2SAT 96; BMI 46.8
== END 2024-04-24 08:18 | disposition home or self-care (01) ==
PROVIDERS: Visit Provider Student in an Organized Health Care Education/Training Program
DX: M19.90 Unspecified osteoarthritis, unspecified site (principal); Z79.899 Other long term (current) drug therapy; M54.16 Radiculopathy, lumbar region
CPT/HCPCS: 99214

== ENCOUNTER → 2024-04-24 07:49 | Outpatient (BNVA) | payer OTHER, SELFPAY | PROVIDERS: Visit Provider Student in an Organized Health Care Education/Training Program ==

== ENCOUNTER 2024-05-03 13:47 | Outpatient (REF) | payer OTHER, SELFPAY ==
--- NOTE | ~2024-05-03 | CT_ITS ---
EXAMINATION: CT LUMBAR SPINE WITHOUT CONTRAST CLINICAL INFORMATION: Radiculopathy. COMPARISON: MRI lumbar spine dated 05/01/2024. TECHNIQUE: Without addition of intravenous contrast, multiple contiguous transaxial sections are obtained through the lumbosacral spine. Multiplanar reformatted images are submitted. This CT examination was performed using dose optimization techniques as appropriate, variously including the following: *Automated exposure control *Adjustment of mA and/or kV according to patient size (this includes techniques or standardized protocols for targeted exams where dose is matched to indication/reason for exam; i.e. extremities or head) *Use of iterative reconstruction technique DLP; 1742 mGy-cm FINDINGS: The T12-L1 and L1-2 intervertebral levels are unremarkable. At the L2-3 intervertebral level, there is vacuum disc phenomenon and an annular disc bulge. A small central, superiorly migrating focal disc herniation is again seen, better appreciated on the recent MRI examination. There is very mild central canal stenosis. There is mild narrowing of the lateral recesses. There is mild facet arthropathy. There is only mild bilateral neural foraminal narrowing. At the L3-4 intervertebral level, there is vacuum disc phenomenon and a mild to moderate annular disc bulge. There is very mild central canal stenosis. There is mild narrowing of lateral recesses, left greater than right. There is facet arthropathy, left greater than right. Moderate left and mild right neural foraminal narrowing is seen. At the L4-5 intervertebral level, there is vacuum disc phenomenon and a mild annular disc bulge. The previously described small central focal disc herniation is less well appreciated on the recent MRI examination. There is very mild central canal stenosis. There is left lateral recess narrowing, and the right lateral recess is relatively patent. There is moderate facet arthropathy. There is marked narrowing of the left neural foramen, and the right neural foramen shows mild narrowing. At the L5-S1 intervertebral level, there is vacuum disc phenomenon, with an annular disc bulge. There are bilateral disc osteophyte complexes. There is facet arthropathy, right greater than left. The lateral recesses appear patent. There is marked narrowing of the right neural foramen, and mild left neural foraminal narrowing is seen. There is multi-level lower thoracic and lumbar anterior endplate arthropathy, most pronounced at T9-10 and L5-S1. There is a large Schmorl's node of the L3 lower endplate. CT/CT lumbar spine wo IV con IMPRESSION: There is multi-level lumbar spondylosis, as detailed. This is most severe, as detailed above, at L4-5 and L5-S1, where marked narrowing is seen of the L4-5 left neural foramen and the L5-S1 right neural foramen. This raises the question of left L4 and right L5 nerve root impingement. Please correlate clinically. Electronically signed by: Logan Bruner MD 05/14/2024 10:59 AM EDT
== END 2024-05-03 13:48 | disposition home or self-care (01) ==
LOC: HO.CT 13:47
PROVIDERS: PCP Family Medicine; Visit Provider Physician Assistant
DX: M54.16 Radiculopathy, lumbar region (principal)
CPT/HCPCS: 72131

== ENCOUNTER 2024-05-11 11:11 | Outpatient (AMB) | payer OTHER, SELFPAY ==
--- NOTE | 2024-05-11 11:14 | A.SPINEOV_ITS ---
Intake Visit Reasons: MRI and CT review with Dr. Chang Intake Note: Mr. Anand is here to f/u after MRI and CT. Store Host Required: No Allergies mite-Dermatophagoides farinae, chau [dust mite - [place]] Allergy (Verified 05/11/24 11:31) Unknown Seasonal Allergies Allergy (Verified 05/11/24 11:31) Itchy Eyes Assessment & Plan Assessment & Plan (1) Lumbar radiculopathy: Code(s): M54.16 - Radiculopathy, lumbar region Category: Medical Plan Mr Anand came back today in the office for evaluation. He has been having right leg pain and back pain. Please see my previous note for the specifics of his problem. He has a far lateral disc herniation in the foramen at L5-S1 compressing the right L5 nerve root. We did a CT scan to evaluate if it had any component of calcification and Dr. Harvey and I reviewed it together and it does not appear to have anything that suggests it is a chronic calcified piece that would require fusion surgery. Therefore we offered him a right L5-S1 far lateral diskectomy with metrics tubes. We quoted success rate at 90% for imp rovement of his leg pain. We reviewed the finding at the L3 vertebral body and Dr. Harvey believes it could be a herniated disc upward. This may explain some of his back pain. There is no formal read back yet from the radiologist. We did explain that we would not be targeting that as part of the procedure, it would strictly be to address the leg pain. Pt was given risk and benefits of surgery including but not limited to infection, hematoma , nerve injury,durotomy, weakness,bowel/bladder injury, persistent pain, recurrent herniated as well as the option to continue with conservative treatment and patient wishes to proceed with surgery. Pt is aware they should stop their Voltaren 7 days prior to surgery. All questions were answered to the best of our ability. If there is anything about this patients medical history that we have overlooked or concerns you have about us proceeding with surgery we would appreciate any input you can offer. Total amount of time spent in this visit was 20 minutes in discussion of symptoms, lumbar MRI and CT at [facility] imaging results and subsequent plan of care Tate Harvey MD,PhD [facility] Coding Level of Care Code Est Pt Level 3 (73256) Diagnoses Lumbar radiculopathy M54.16
== END 2024-05-11 12:08 | disposition home or self-care (01) ==
PROVIDERS: PCP Family Medicine; Visit Provider Physician Assistant
DX: M54.16 Radiculopathy, lumbar region (principal)
CPT/HCPCS: 99213

== ENCOUNTER → 2024-05-11 11:11 | Outpatient (BNVA) | payer OTHER, SELFPAY | PROVIDERS: PCP Family Medicine; Visit Provider Physician Assistant ==

== ENCOUNTER → 2024-05-23 14:00 | Outpatient (BNV) | payer OTHER, SELFPAY | PROVIDERS: PCP Family Medicine; Visit Provider Internal Medicine | DX: Z01.810 Encounter for preprocedural cardiovascular examination (principal) | CPT/HCPCS: 93010 ==

== ENCOUNTER 2024-05-31 05:58 | Day surgery (SDC) | payer OTHER, SELFPAY ==
--- NOTE | 2024-05-23 | ECG_ITS ---
Test Reason : PREOP Blood Pressure : / mmHG Vent. Rate : 084 BPM Atrial Rate : 084 BPM P-R Int : 136 ms QRS Dur : 104 ms QT Int : 378 ms P-R-T Axes : 054 009 039 degrees QTc Int : 446 ms Normal sinus rhythm Normal ECG No previous ECGs available Referred By: Merary Aponte Electronically Signed By:BOOGIE NDIAYE
[2024-05-23 13:12] VITALS: BP 136/80; PULSE 89; RESP 16; O2SAT 99; BMI 46.1
--- NOTE | 2024-05-23 13:39 | HO.ANESPROP2 ---
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 Will take DOS PMFSH Active Problems Active Problems: All Active Problems Lumbar radiculopathy (Acute) Sciatica (Acute) Long-term use of hydroxychloroquine (Acute) Inflammatory arthritis (Acute) Left radial head fracture (Acute) Pain in joint, multiple sites (Acute) Past Medical History Medical History (Updated 05/23/24 @ 13:32 by Swetha Duffy RN) Arthritis GERD (gastroesophageal reflux disease) Hx of fracture of skull (~1975) Lactose intolerance Arthritis Pain in joint, multiple sites Obesity (BMI 35.0-39.9 without comorbidity) Family History Family History Maternal Grandmother Dementia Mother Osteoarthritis Ankylosing spondylitis Aortic aneurysm Maternal Grandfather Lung tumor Father Pancreatic cancer Family history of problems with anesthesia: No Surgical History Surgical History H/O colonoscopy (01/18/24) H/O wisdom tooth extraction Hx of cholecystectomy (~1992) History of Problems with Anesthesia: No Social History Social History Household Members: None Are you a primary medicare sales representative to a significant other at home: No Do you presently have visiting nurse or other home services: No Alcohol intake: current Alcohol intake frequency: holidays/special occasions only Patient Tobacco Use Status: Former Tobacco user Tobacco use type: Cigarette Smoked in Last 30 Days: No Use of substances other than those prescribed or required for medical reasons: No Have you been hit, kicked, punched, or otherwise hurt by someone within the past year? 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[employer] – [place] Meds Allergies Allergy/AdvReac Type Severity Reaction Status Date / Time animal dander Allergy Intermediate Itchy Eyes Verified 05/23/24 13:40 mite-Dermatophagoides Allergy Intermediate Unknown Verified 05/23/24 13:39 farinae, chau [dust mite - [place]] Seasonal Allergies Allergy Intermediate Itchy Eyes Verified 05/23/24 13:39 Home Medications ?Medication ?Instructions ?Recorded ?Confirmed ?Last Taken ?Type cholestyramine-aspartame 4 gram 1 ea PO DAILY 09/06/23 05/23/24 Unknown History oral powder for susp in a packet lisinopril 5 mg tablet 5 mg PO DAILY 04/24/24 05/23/24 Unknown History ibuprofen 200 mg tablet (Advil) 800 mg PO Q8H PRN Pain 05/23/24 05/23/24 Unknown History methocarbamol 500 mg tablet 500 mg PO TID 05/23/24 05/23/24 Unknown History omeprazole magnesium 20 mg 20 mg PO DAILY PRN Gastric Reflux 05/23/24 05/23/24 Unknown History tablet,delayed release (Prilosec OTC) oxycodone 10 mg tablet 10 mg PO BID PRN Pain 05/23/24 05/23/24 05/31/24 History tramadol 100 mg tablet 100 mg PO Q6H moderate pain 05/23/24 05/23/24 Unknown History Exam Height,Weight and Vital Signs: Height 5 ft 10 in Weight 145.8 kg Last Vital Signs Pulse 89 05/23/24 13:12 Resp 16 05/23/24 13:12 BP 136/80 05/23/24 13:12 Pulse Ox 99 05/23/24 13:12 O2 Del Method Room Air 05/23/24 13:12 Pertinent Lab Results Pertinent Lab Results: Laboratory Tests 04/16/24 08:23 WBC 11.7 H Hgb 13.8 L Hct 42.4 Plt Count 281 Sodium 139 Potassium 4.6 Chloride 105 Carbon Dioxide 26 BUN 16 Creatinine 0.86 Narrative Narrative: EKG 05/2024 Vent. Rate : 084 BPM Atrial Rate : 084 BPM P-R Int : 136 ms QRS Dur : 104 ms QT Int : 378 ms P-R-T Axes : 054 009 039 degrees QTc Int : 446 ms Normal sinus rhythm Normal ECG No previous ECGs available Airway Mallampati Class: II TM Dist: >3cm Neck ROM: Full Loose/Missing/Broken Teeth: No (5 x crowned molars) Heart: RRR Lungs: CTAB Assessment and Plan Assessment Anesthesia Assessment: Anesthesia Plan Discussed and PAT Visit Final Anesthetic Review Family History of Problems with Anesthesia: No History of Problems with Anesthesia: No Documented by User: Javier Mello MD 05/31/24 07:22 [facility] Past Medical History Medical History (Updated 05/23/24 @ 13:32 by Swetha Duffy RN) Arthritis GERD (gastroesophageal reflux disease) Hx of fracture of skull (~1975) Lactose intolerance Arthritis Pain in joint, multiple sites Obesity (BMI 35.0-39.9 without comorbidity) Family History Family History Maternal Grandmother Dementia Mother Osteoarthritis Ankylosing spondylitis Aortic aneurysm Maternal Grandfather Lung tumor Father Pancreatic cancer Surgical History Surgical History H/O colonoscopy (01/18/24) H/O wisdom tooth extraction Hx of cholecystectomy (~1992) Social History Social History Household Members: None Are you a primary medicare sales representative to a significant other at home: No Do you presently have visiting nurse or other home services: No Alcohol intake: current Alcohol intake frequency: holidays/special occasions only Patient Tobacco Use Status: Former Tobacco user Tobacco use type: Cigarette Smoked in Last 30 Days: No Use of substances other than those prescribed or required for medical reasons: No Have you been hit, kicked, punched, or otherwise hurt by someone within the past year? 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 Allergy/AdvReac Type Severity Reaction Status Date / Time animal dander Allergy Intermediate Itchy Eyes Verified 05/23/24 13:40 mite-Dermatophagoides Allergy Intermediate Unknown Verified 05/23/24 13:39 farinae, chau [dust mite - [place]] Seasonal Allergies Allergy Intermediate Itchy Eyes Verified 05/23/24 13:39 Home Medications ?Medication ?Instructions ?Recorded ?Confirmed ?Last Taken ?Type cholestyramine-aspartame 4 gram 1 ea PO DAILY 09/06/23 05/23/24 Unknown History oral powder for susp in a packet lisinopril 5 mg tablet 5 mg PO DAILY 04/24/24 05/23/24 Unknown History ibuprofen 200 mg tablet (Advil) 800 mg PO Q8H PRN Pain 05/23/24 05/23/24 Unknown History methocarbamol 500 mg tablet 500 mg PO TID 05/23/24 05/23/24 Unknown History omeprazole magnesium 20 mg 20 mg PO DAILY PRN Gastric Reflux 05/23/24 05/23/24 Unknown History tablet,delayed release (Prilosec OTC) oxycodone 10 mg tablet 10 mg PO BID PRN Pain 05/23/24 05/23/24 05/31/24 History tramadol 100 mg tablet 100 mg PO Q6H moderate pain 05/23/24 05/23/24 Unknown History Assessment and Plan Assessment Anesthesia Assessment: Chart Reviewed Final Anesthetic Review NPO: Yes ASA Class: III Final Preanesthetic Review: No Changes in Pt Med Stat, Meds/Allgs Chart Reviewed, Consent Obtained/Reviewed and Anes Risks/Benef Reviewed Patient Risk: Intermediate Procedure Risk: Intermediate Anesthetic Plan Anesthetic Plan: GA Disposition: Standard PACU
[2024-05-31] VITALS (8 sets, daily range): BP systolic 108–127; BP diastolic 60–74; PULSE 88–102; RESP 12–16; TEMP 35.4–36.3; O2SAT 91–97; BMI 45.3
--- NOTE | ~2024-05-31 | XR_ITS ---
EXAMINATION: XR CHEST CLINICAL INFORMATION: Aspiration. COMPARISON: November 11, 2020 TECHNIQUE: Frontal view of the chest was obtained. FINDINGS: Low lung volumes. No focal consolidation. No pleural effusion. Cardiac silhouette is unchanged. XR/XR chest 1V IMPRESSION: No acute abnormality. Electronically signed by: Sang Huizar MD 05/31/2024 10:56 AM EDT
[2024-05-31] MEDS: methocarbamoL 750 MG TABLET PO (06:46)
[2024-05-31] MEDS: Gabapentin 300 MG CAPSULE PO (06:46)
[2024-05-31] MEDS: Lactated Ringers 1,000 ML 100 ML IVCONT (06:59)
--- NOTE | 2024-05-31 07:07 | P.HPSUR_ITS ---
Pre-Procedural Eval Section A - 24 Hr Update-Section A only Date of Service: 05/31/24 The patient is an INPATIENT: No Changes since office visit: No Cold of Flu in the past 2 weeks, No New Medical Problems, No Changes in Medication and No Patient answered all questions The patient has been examined within 24 hours of the surgical procedure. The History & Physical has been completed within 30 days and I have reviewed it.: No Section B - Complete if H&P > 30 days Chief Complaint: Radiculopathy, lumbar region Allergies: Allergies Allergy/AdvReac Type Severity Reaction Status Date / Time animal dander Allergy Intermediate Itchy Eyes Verified 05/23/24 13:40 mite-Dermatophagoides Allergy Intermediate Unknown Verified 05/23/24 13:39 farinae, chau [dust mite - [place]] Seasonal Allergies Allergy Intermediate Itchy Eyes Verified 05/23/24 13:39 Review of Systems Sugical H&P ROS: Negative: Constitution, Cardiovascular, Respiratory, Neurological, Psychiatric, Hem-Onc, Allergic/Immunologic, Gastrointestinal, Genitourinary, Musculoskeletal, Integumentary, Endocrine and Eyes/Ears/Nose /Throat Exam Surgical H&P Exam: Normal: HEENT, Normal: Heart, Normal: Lungs, Normal: Extremities, Normal: Abdomen, Normal: Skin and Normal: Neurological (awake, alert,oriented x 3 ) Plan Diagnosis/Plan: Unchanged right L5-S1 far lateral microdiskectomy with Metrx tubes Time Spent With Patient Time: Total time managing care of this patient today __6__ minutes.
--- NOTE | 2024-05-31 07:34 | P.DS_ITS ---
DS: Providers Provider Date of Service: 05/31/24 Date of discharge: 05/31/24 Primary care physician: Monica Curtis MD Admitting clinician: Janes Harvey DS: Diagnosis Discharge Diagnosis (1) Lumbar radiculopathy: Status: Acute DS: Summary Time Attestation Discharge Coordination Time (in mins): 6 Quality: Safe Use of Opioids Does Pt have an Active Cancer Diagnosis on the Problem List?: No Quality: Stroke Does the patient have a stroke diagnosis?: No Physical Exam Vital Signs: Vital Signs: Last Vital Signs Temp 95.7 F L 05/31/24 06:49 Pulse 100 05/31/24 06:49 Resp 14 05/31/24 06:49 BP 127/74 05/31/24 06:49 Pulse Ox 96 05/31/24 06:49 O2 Del Method Room Air 05/31/24 06:49 BMI result Body Mass Index 45.3 Discharge Plan Discharge Patient Disposition: Home, Self-Care Referrals: Monica Curtis MD [Primary Care Provider] - 1 Week Discharge Medications: Continued hydroxychloroquine 200 mg tablet 200 mg PO BID Qty: 180 1RF tramadol 100 mg tablet 100 mg PO Q6H oxycodone 10 mg Tablet 10 mg PO BID PRN (Reason: Pain) methocarbamol 500 mg tablet 500 mg PO TID ibuprofen [Advil] 200 mg Tablet 800 mg PO Q8H PRN (Reason: Pain) omeprazole magnesium [Prilosec OTC] 20 mg Tablet,Delayed Release (Dr/Ec) 20 mg PO DAILY PRN (Reason: Gastric Reflux) cholestyramine-aspartame 4 gram powder in packet 1 ea PO DAILY lisinopril 5 mg tablet 5 mg PO DAILY Discharge Orders: Discharge Order (Routine); Ordered 05/31/24 Ordered By: Tate Moody Diet: Advance to usual diet Activity on Discharge: As tolerated Activity Restrictions/Additional Instructions: We were unable to operate on you today because of some retained food that was still in your stomach at the time of intubation which came up. There was too much risk that you would aspirate and continued to vomit which could give you it severe respiratory complication so we did not continue with the surgery. The anesthesia team extubated you. You will need to have a workup with your primary care physician to better understand why gastric contents were not passed in an adequate amount of time. Once that is worked up and better understood, we can consider operating again. Print Language: Occitan
== END 2024-05-31 09:37 | disposition home or self-care (01) ==
PROVIDERS: PCP Family Medicine; Visit Provider Neurological Surgery
PROC: (CPT 63056; principal; 2024-05-31 07:30)
DX: M54.16 Radiculopathy, lumbar region (principal); Z53.09 Procedure and treatment not carried out because of other contraindication; R11.10 Vomiting, unspecified
CPT/HCPCS: 63056; 71045; 93005; J0131; J0690; J2003; J2250; J2704; J3010

== ENCOUNTER → 2024-05-31 05:58 | Outpatient (BNV) | payer OTHER, SELFPAY | PROVIDERS: PCP Family Medicine; Visit Provider Physician Assistant | DX: M54.16 Radiculopathy, lumbar region (principal) | CPT/HCPCS: 99499 ==

== ENCOUNTER 2024-05-31 13:19 | Inpatient (IN) | payer OTHER, SELFPAY ==
[2024-05-31] VITALS (7 sets, daily range): BP systolic 92–138; BP diastolic 47–91; PULSE 78–130; RESP 12–20; TEMP 37.1–37.2; O2SAT 93–97; BMI 45.2
--- NOTE | ~2024-05-31 | XR_ITS ---
EXAMINATION: XR CHEST CLINICAL INFORMATION: aspiration event during anesthesia COMPARISON: May 31, 2024 at 8:03 AM TECHNIQUE: Frontal view of the chest was obtained. FINDINGS: Linear opacities lung bases. No consolidation, pleural effusion or pneumothorax. Cardiomediastinal silhouette is normal in size. XR/XR chest 1V IMPRESSION: Subsegmental atelectasis versus airspace disease, lung bases. Electronically signed by: Driss Mcgee MD 05/31/2024 03:03 PM EDT
--- NOTE | 2024-05-31 13:26 | ED_ITS ---
HPI - General Adult General Chief complaint: General Medical Stated complaint: Nausea, chills Time Seen by Provider: 05/31/24 14:05 Source: patient and old records reviewed Mode of arrival: ambulatory Limitations: no limitations History of Present Illness ED Provider: FELECIA CABRERA narrative: 53 yo male with PMH of obesity, lumbar radiculopathy with sciatica was having surgery this AM for L5-S1 microdiskectomy when apparently he states he went into the OR and then woke up and was told no surgery was done. He vomited during intubation. He tells me he last ate a midnight. He went home after the attempt at procedure and they warned him about returning - he started to feel very nauseated with chills and hot flashes. He feels some mild diff with breathing but no cough. He does note prior to the procedure he felt nausea x 2 days after switching from tramadol to oxycodone. He had no abdominal pain or diarrhea. He is on chronic hydroxychloroquine for inflammatory arthritis but has not been on prednisone in 4+ weeks. MD complaint: fever chills nausea Onset (ago): hour(s) (5) Location: chest Radiation: non-radiation Severity: moderate Relieving factors: none Exacerbating factors: eating and movement Associated symptoms: fever/chills, loss of appetite, malaise, nausea/vomiting and shortness of breath Treatments prior to arrival: none Related Data Home Medications ?Medication ?Instructions ?Recorded ?Confirmed cholestyramine-aspartame 4 gram 1 ea PO DAILY 09/06/23 05/23/24 oral powder for susp in a packet lisinopril 5 mg tablet 5 mg PO DAILY 04/24/24 05/23/24 ibuprofen 200 mg tablet (Advil) 800 mg PO Q8H PRN Pain 05/23/24 05/23/24 methocarbamol 500 mg tablet 500 mg PO TID 05/23/24 05/23/24 omeprazole magnesium 20 mg 20 mg PO DAILY PRN Gastric Reflux 05/23/24 05/23/24 tablet,delayed release (Prilosec OTC) oxycodone 10 mg tablet 10 mg PO BID PRN Pain 05/23/24 05/23/24 tramadol 100 mg tablet 100 mg PO Q6H moderate pain 05/23/24 05/23/24 Previous Rx's ?Medication ?Instructions ?Recorded hydroxychloroquine 200 mg tablet 200 mg PO BID #180 tabs 04/26/24 Allergies Allergy/AdvReac Type Severity Reaction Status Date / Time animal dander Allergy Intermediate Itchy Eyes Verified 05/31/24 13:31 mite-Dermatophagoides Allergy Intermediate Unknown Verified 05/31/24 13:31 farinae, chau [dust mite - [place]] Seasonal Allergies Allergy Intermediate Itchy Eyes Verified 05/31/24 13:31 Review of Systems 2 Review of Systems: Constitutional : pos Fever, pos Chills ENT/Mouth : No Hoarseness, No sore throat, No Rhinorrhea Eyes: No Redness, No Discharge, No Vision Changes Cardiovascular : No Chest Pain, positive SOB, positive Dyspnea on Exertion, No Edema Respiratory : positive Cough, No Sputum, no Wheezing, Gastrointestinal : pos Nausea, No Vomiting, No Diarrhea, No abdominal Pain Genitourinary : No Dysuria, No Hematuria Musculoskeletal : No joint pain, No Myalgias Skin : No rash Neuro : No Weakness, No Numbness, No Headache Psych : No anxiety, depression All other systems reviewed and are negative [facility] Past Medical History Attestation statement: The following information was validated with the patient. Source: old records reviewed Medical History Arthritis GERD (gastroesophageal reflux disease) Hx of fracture of skull (~1975) Lactose intolerance Arthritis Pain in joint, multiple sites Obesity (BMI 35.0-39.9 without comorbidity) Surgical History H/O colonoscopy (01/18/24) H/O wisdom tooth extraction Hx of cholecystectomy (~1992) Family History Family History Maternal Grandmother Dementia Mother Osteoarthritis Ankylosing spondylitis Aortic aneurysm Maternal Grandfather Lung tumor Father Pancreatic cancer Social History Social History Household Members: None Are you a primary home health caregiver to a significant other at home: No Do you presently have visiting nurse or other home services: No Alcohol intake: current Alcohol intake frequency: holidays/special occasions only Patient Tobacco Use Status: Former Tobacco user Tobacco use type: Cigarette Advance Directives: No Advance Directives Information Provided: Yes Do you have a plan to hurt others: No Plan Current occupational status: employed 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 Oriented X3. No acute distress. Eyes: Pupils equal, round and reactive to light. ENT: Pharynx normal. Neck: Normal inspection. Neck supple. CVS: tachycardic heart rate and rhythm. Pulses normal. Respiratory: No respiratory distress. Breath sounds crackles in both base, R base more diminished, no wheezes heard Abdomen: Soft and nontender. Skin: Skin warm and dry. Normal skin color. Normal skin turgor. Extremities: No lower extremity edema. No calf ttp Neuro: Oriented X 3. No motor deficit. No sensory deficit. Course Course Course Narrative: RME, this is a rapid medical exam performed by Bong Ramirez please refer to primary provider for complete H&P- 53-year-old male presents for evaluation of nausea, vomiting. Patient was due to have L5 surgery this morning. The surgery was aborted as the patient vomited immediately after being intubated. He reports that he was on extubated, watched in PACU for an hour and was discharged home. The patient reports that he felt nausea for the last few days prior to the planned surgery this morning. He has subjective fevers and chills. He was tachy to the 130 in triage. Plan for labs, viral swabs, urinalysis, the patient reports a history of urosepsis. The patient had a chest x-ray this morning that did not show any acute abnormalities after the possible aspiration episode Medical Decision Making Medical Decision Making MDM Narrative: 53 yo male with lumbar radiculopathy, inflammatory arthritis on hydroxychloroquine, planned for L5-S1 microdiskectomy but had what sounds like aroldo-intubation vomiting and aspiration event he now presents with chills, fevers, tachycardia and signs of aspiration on CXR. At this time I have ordered labs, cultures, IV zosyn, zofran and and PO tylenol. Plan to admit. Differential Diagnosis Differential Diagnoses: The differential diagnosis associated with the presentation includes aspiration pneumonia Admission/Observation Consideration of admission/observation: Escalation of care including admission/observation considered admit given presentation and workup Consult Healthcare Provider Management of the patient was discussed with: Hospitalist (will admit) Lab Data MDM Lab Attestation statement: I reviewed the patient's lab results. 05/31/24 14:09 05/31/24 14:09 Labs: Lab Results 05/31/24 Range/Units 14:09 WBC 15.9 H (4.8-10.8) X10*3/uL RBC 5.06 (4.60-5.80) X10*6/uL Hgb 14.5 (14.0-18.0) g/dl Hct 41.3 L (42.0-52.0) % MCV 81.6 (80.0-98.0) fL MCH 28.7 (27.0-33.0) pg MCHC 35.1 (31.0-36.0) g/dl RDW 14.2 (11.0-16.0) % Plt Count 302 (160-400) X10*3/uL MPV 10.5 (9.4-12.4) fL Immature Gran % (Auto) 0.3 (0.0-0.4) % Neut % (Auto) 86.1 H (45-73) % Lymph % (Auto) 8.1 L (20-40) % [place] % (Auto) 5.2 (2-11) % Eos % (Auto) 0.0 (0-4) % Baso % (Auto) 0.3 (0-2) % Lymph # (Auto) 1.3 (1.2-4.9) X10*3/uL [place] # (Auto) 0.8 (0.1-1.2) X10*3/uL Eos # (Auto) 0.0 (0.0-0.4) X10*3/uL Baso # (Auto) 0.0 (0.0-0.2) X10*3/uL Abs Immat Gran (auto) 0.04 H (0.00-0.03) X10*3/uL Absolute Neuts (auto) 13.7 H (2.0-8.3) x10*3/uL Absolute Nucleated RBC 0.000 (0.0-0.012) X10*3/uL Nucleated RBC % (auto) 0.0 (0.0-0.2) /100WBC Sodium 139 (135-145) mmol/L Potassium 4.3 (3.3-5.1) mmol/L Chloride 106 (96-108) mmol/L Carbon Dioxide 21 L (22-29) mmol/L Anion Gap 16 (12-20) BUN 9 (9-16) mg/dL Creatinine 1.01 (0.5-1.4) mg/dL Estim Creat Clear Calc 120.8 Estimated GFR > 60 Random Glucose 156 H (60-115) mg/dL Lactic Acid 2.8 H* (0.5-2.0) mmol/L Calcium 9.8 D (8.4-10.2) mg/dL Total Bilirubin 0.9 (0.0-1.0) mg/dL AST 41 H (5-37) U/L ALT 37 (0-40) U/L Alkaline Phosphatase 49 (39-117) U/L Total Protein 7.9 (6.5-8.0) g/dL Albumin 4.1 (3.5-5.0) g/dL Lipase 16 (8-78) U/L Independent Interpretation I performed an independent interpretation of an: Plain X-Ray (bilateral lower lobe ds) Radiology Impression Discussion of test interpretation with radiology: I have reviewed the radiologist's reading. External Record Review External record reviewed: Outpatient record Discharge Plan Discharge Clinical Impression: Elevated WBC count, Acidosis, lactic, Aspiration pneumonia Patient Disposition: Admitted As Inpatient Prescriptions: No Action hydroxychloroquine 200 mg tablet 200 mg PO BID Qty: 180 1RF tramadol 100 mg tablet 100 mg PO Q6H oxycodone 10 mg Tablet 10 mg PO BID PRN (Reason: Pain) methocarbamol 500 mg tablet 500 mg PO TID ibuprofen [Advil] 200 mg Tablet 800 mg PO Q8H PRN (Reason: Pain) omeprazole magnesium [Prilosec OTC] 20 mg Tablet,Delayed Release (Dr/Ec) 20 mg PO DAILY PRN (Reason: Gastric Reflux) cholestyramine-aspartame 4 gram powder in packet 1 ea PO DAILY lisinopril 5 mg tablet 5 mg PO DAILY Print Language: Sinhala
--- NOTE | 2024-05-31 13:31 | ECG_ITS ---
Test Reason : sepsis protocol Blood Pressure : / mmHG Vent. Rate : 123 BPM Atrial Rate : 125 BPM P-R Int : 136 ms QRS Dur : 098 ms QT Int : 306 ms P-R-T Axes : 000 014 065 degrees QTc Int : 438 ms Sinus tachycardia Otherwise normal ECG When compared with ECG of 23-MAY-2024 14:00, No significant change was found Referred By: Stevie Ramirez Electronically Signed By:Jasen Oglesby
[2024-05-31 14:14] LABS: MANUAL DIFF FLAG NO
[2024-05-31 14:20] LABS: Basophils Percent Auto 0.3 % (0-2); Hematocrit 41.3 % (42.0-52.0); Hemoglobin 14.5 g/dl (14.0-18.0); Imm Gran Abs Auto 0.04 X10*3/uL (0.00-0.03); Imm Gran Pct Auto 0.3 % (0.0-0.4); Lymphocytes Absolute Auto 1.3 X10*3/uL (1.2-4.9); Lymphocytes Percent Auto 8.1 % (20-40); Mean Corpuscular HGB Conc 35.1 g/dl (31.0-36.0); Mean Corpuscular Hemoglobin 28.7 pg (27.0-33.0); Mean Corpuscular Volume 81.6 fL (80.0-98.0); Mean Platelet Volume 10.5 fL (9.4-12.4); Monocytes Absolute Auto 0.8 X10*3/uL (0.1-1.2); Monocytes Percent Auto 5.2 % (2-11); Neutrophils Absolute Auto 13.7 x10*3/uL (2.0-8.3); Neutrophils Percent Auto 86.1 % (45-73); Platelet Count 302 X10*3/uL (160-400); Red Blood Count 5.06 X10*6/uL (4.60-5.80); Red Cell Distribution Width 14.2 % (11.0-16.0); White Blood Count 15.9 X10*3/uL (4.8-10.8)
[2024-05-31 14:33] LABS: Lactic Acid 2.8 mmol/L (0.5-2.0)
[2024-05-31 14:36] LABS: Alanine Aminotransferase 37 U/L (0-40); Albumin Level 4.1 g/dL (3.5-5.0); Alkaline Phosphatase 49 U/L (39-117); Anion Gap 16 (12-20); Aspartate Amino Transferase 41 U/L (5-37); Bilirubin Total 0.9 mg/dL (0.0-1.0); Blood Urea Nitrogen 9 mg/dL (9-16); Calcium 9.8 mg/dL (8.4-10.2); Carbon Dioxide 21 mmol/L (22-29); Chloride 106 mmol/L (96-108); Creatinine Clr Calc Pharmacy 120.8; Estimated Glomerular Filt Rate > 60; Glucose Random 156 mg/dL (60-115); Lipase 16 U/L (8-78); Potassium 4.3 mmol/L (3.3-5.1); Sodium 139 mmol/L (135-145); Total Protein 7.9 g/dL (6.5-8.0)
[2024-05-31] MEDS: ondansetron HCL 4 MG/2 ML VIAL IVPUSH (14:55)
[2024-05-31] MEDS: Acetaminophen 325 MG TABLET 975 MG PO (14:55)
[2024-05-31] MEDS: Piperacillin Sodium/Tazobactam 4.5 GM in 0.9 % Sodium Chloride 100 ML IV (14:57)
[2024-05-31] MEDS: Lactated Ringers 1,000 ML 999 ML IV ×3 (14:59→20:02)
[2024-05-31 15:12] LABS: C Reactive Protein 0.97 mg/dL (< or = 0.50)
--- NOTE | 2024-05-31 15:12 | PM.IMHP ---
History of Present Illness Date of Service: 05/31/24 Attending physician on admission: Ken Ya Chief Complaint: N/V, headache Pt is a 53-year-old male with a PMH significant for HTN,?inflammatory arthritis, and lumbar radiculopathy with sciatica who presents to the ED with?subjective fever, chills, headache, and generally feeling unwell. Patient originally presented to the hospital earlier this morning for L5-S1 microdiscectomy where he vomited during intubation. Surgery was postponed, patient was extubated, observed in the PACU, and then sent home. Reports took a 2-hour nap and then felt unwell upon waking with subjective fever, chills, and nausea but no vomiting. Some mild SOB with deep breathing and ambulation. No chest pain/pressure, palpitations. Denies abd pain. Pt states has felt nauseous since Tuesday which he attributes to switching analgesics from Tramadol to oxycodone. Reports stopped eating by midnight last night, though ate dinner from 10-midnight. In the ED pt was tachycardic up to 130 and mildly hypertensive up to 138/91. Labs were significant for leukocytosis of 15.9, lactic acid 2.8, ALT 41, and CRP 0.97. CXR showed subsegmental atelectasis versus airspace disease at lung bases, which demonstrates changes from CXR this morning that was clear with no acute abnormality. EKG demonstrated sinus tachycardia of 123 without evidence of significant ST elevations or depressions. Pt was treated with ondansetron, IVF, acetaminophen, and started on Zosyn. Pt will be admitted to the hospital for treatment and further evaluation of aspiration pneumonia with sepsis. Review of Systems Review of Systems: Subjective fever, chills Headache Nausea, no vomiting Yes all other systems are reviewed and are negative [facility] Medical History Arthritis GERD (gastroesophageal reflux disease) Hx of fracture of skull (~1975) Lactose intolerance Arthritis Pain in joint, multiple sites Obesity (BMI 35.0-39.9 without comorbidity) Family History Maternal Grandmother Dementia Mother Osteoarthritis Ankylosing spondylitis Aortic aneurysm Maternal Grandfather Lung tumor Father Pancreatic cancer Surgical History H/O colonoscopy (01/18/24) H/O wisdom tooth extraction Hx of cholecystectomy (~1992) Social History Household Members: None Are you a primary health careers instructor to a significant other at home: No Do you presently have visiting nurse or other home services: No Alcohol intake: current Alcohol intake frequency: holidays/special occasions only Patient Tobacco Use Status: Former Tobacco user Tobacco use type: Cigarette Advance Directives: No Advance Directives Information Provided: Yes Do you have a plan to hurt others: No Plan Current occupational status: employed 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 [employer] [place] Allergies Allergy/AdvReac Type Severity Reaction Status Date / Time animal dander Allergy Intermediate Itchy Eyes Verified 05/31/24 13:31 mite-Dermatophagoides Allergy Intermediate Unknown Verified 05/31/24 13:31 farinae, chau [dust mite - [place]] Seasonal Allergies Allergy Intermediate Itchy Eyes Verified 05/31/24 13:31 Active Medications: Current Medications Lactated Ringer's (Lr) 1,000 mls @ 999 mls/hr IV .Q1H1M ONE Stop: 05/31/24 15:33 Last Admin: 05/31/24 14:59 Dose: 999 mls/hr Home Medications ?Medication ?Instructions ?Recorded ?Confirmed ?Last Taken ?Type cholestyramine-aspartame 4 gram 1 ea PO DAILY 09/06/23 05/23/24 Unknown History oral powder for susp in a packet lisinopril 5 mg tablet 5 mg PO DAILY 04/24/24 05/23/24 Unknown History ibuprofen 200 mg tablet (Advil) 800 mg PO Q8H PRN Pain 05/23/24 05/23/24 Unknown History methocarbamol 500 mg tablet 500 mg PO TID 05/23/24 05/23/24 Unknown History omeprazole magnesium 20 mg 20 mg PO DAILY PRN Gastric Reflux 05/23/24 05/23/24 Unknown History tablet,delayed release (Prilosec OTC) oxycodone 10 mg tablet 10 mg PO BID PRN Pain 05/23/24 05/23/24 05/31/24 History tramadol 100 mg tablet 100 mg PO Q6H moderate pain 05/23/24 05/23/24 Unknown History Physical Exam Vital Signs and Narrative: Vital Signs: Last Vital Signs Temp 99.0 F 05/31/24 13:27 Pulse 130 H 05/31/24 13:27 Resp 20 05/31/24 13:27 BP 138/91 H 05/31/24 13:27 Pulse Ox 94 05/31/24 13:27 O2 Del Method Room Air 05/31/24 13:27 BMI result Body Mass Index 45.2 General: AOx3, no acute distress Resp: CTA bilaterally CVS: S1, S2, regularl rhythm, tachcardic GI: +BS, NT, no distention Skin: Warm, dry Neuro: Cranial nerves II-XII grossly intact bilaterally. Motor grossly intact bilaterally Extremities: No edema Psych: Appropriate affect Results Labs 05/31/24 14:09 05/31/24 14:09 Labs: Laboratory Results - last 24 hr 05/31/24 05/31/24 14:09 14:51 MCV 81.6 MCH 28.7 MCHC 35.1 RDW 14.2 Plt Count 302 MPV 10.5 Immature Gran % (Auto) 0.3 Neut % (Auto) 86.1 H Lymph % (Auto) 8.1 L [place] % (Auto) 5.2 Eos % (Auto) 0.0 Baso % (Auto) 0.3 Lymph # (Auto) 1.3 [place] # (Auto) 0.8 Eos # (Auto) 0.0 Baso # (Auto) 0.0 Abs Immat Gran (auto) 0.04 H Absolute Neuts (auto) 13.7 H Absolute Nucleated RBC 0.000 Nucleated RBC % (auto) 0.0 Anion Gap 16 Estim Creat Clear Calc 120.8 Estimated GFR > 60 Random Glucose 156 H Lactic Acid 2.8 H* Calcium 9.8 D Total Bilirubin 0.9 AST 41 H ALT 37 Alkaline Phosphatase 49 C-Reactive Protein 0.97 H Total Protein 7.9 Albumin 4.1 Lipase 16 Imaging Radiologist's Impressions: Impressions Chest X-Ray 05/31/24 14:06 IMPRESSION: Subsegmental atelectasis versus airspace disease, lung bases. Electronically signed by: Driss Mcgee MD 05/31/2024 03:03 PM EDT RP Assessment and Plan (1) Aspiration pneumonia: Qualifiers: Aspiration pneumonia type: unspecified Laterality: bilateral Lung location: lower lobe of lung Qualified Code(s): J69.0 - Pneumonitis due to inhalation of food and vomit Status: Acute Plan Pt is a 53-year-old male with a PMH significant for HTN,?inflammatory arthritis, and lumbar radiculopathy with sciatica who presents to the ED with?subjective fever, chills, headache, and generally feeling unwell. Pt will be admitted to the hospital for treatment and further evaluation of aspiration pneumonia with sepsis. Aspiration pneumonia with sepsis Witnessed aspiration event during intubation this morning, CXR changes Meets sepsis criteria: Tachycardia, leukocytosis; lactic acid elevated at 2.8 Patient given IVF and started on broad-spectrum antibiotics in the ED Will treat with Unasyn 3 g q.6, started 05/31/2024 Follow blood cultures HTN Continue lisinopril Lumbar radiculopathy with sciatica Continue methocarbamol, oxycodone Inflammatory arthritis Continue hydroxychloroquine GERD Continue PPI Full Code Attending:?Dr. Ya DVT Prophylaxis: Lovenox Pt will require a hospitalization of at least two nights for treatment of?aspiration pneumonia with sepsis requiring IV antibiotics and close monitoring of vitals and labs. Quality Stroke Does the patient have a stroke diagnosis?: No VTE Prior VTE?: No VTE Risk Level:: Medical - moderate - high VTE Device Contraindication: Treatment Not Indicated VTE Drug Contraindication: N/A - Med Ordered
[2024-05-31 15:39] LABS: Influenza A PCR NEGATIVE (Negative); Influenza B PCR NEGATIVE (Negative); Resp Syncy Virus RNA Qual PCR NEGATIVE (Negative); SARS COV2 PCR INHOUSE NEGATIVE (Negative)
[2024-05-31 16:13] LABS: Reflex Lactate? Lactic Acid Added
--- NOTE | 2024-05-31 16:35 | PHA.MEDREC ---
Addendum entered by Yifan Ye RPh 05/31/24 17:39: MED REC CHECKED BY [facility] Original Note: Pharmacy Consult ? Medication Reconciliation Pharmacy has completed the medication reconciliation. Confirmed medications with patient. Patient state he is taking is Hydroxychloroquine 200mg tab taking 2 tabs (400mg) daily instead of 1 BID but states his Dr allowed him to do 2 daily. He also confirmed he is doing his Methocarbamol 300mg tab BID instead of TID and stated doing BID is better for him. He confirmed his Oxycodone 10mg tab bid but states since starting that hes been getting very nauseous and wants to try something new. He states he was switched from Tramadol 100mg tab to the Oxycodone 10mg after the Tramadol stopped being effective for the patient. He states he took an Oxycodone 10mg tab this morning around 0500 and everything else yesterday.
[2024-05-31 16:40] LABS: ~Lactic Acid-LAB USE ONLY 2.2 mmol/L (0.5-2.0)
[2024-05-31 16:57] LABS: Appearance Urine Clear; Color Urine Yellow; Glucose Urine UA Negative (Negative); Leukocyte Esterase Urine Negative (Negative); Nitrite Urine Negative (Negative); Specific Gravity - Urine 1.025 (1.005-1.025); Urine Blood Negative (Negative); Urine Ketones 15 mg/dL (Negative); Urine Protein Trace mg/dL (Neg-Trace)
[2024-05-31 16:59] LABS: Bacteria Urine None Seen (None Seen); Hyaline Casts Urine 0-2 /LPF (0-2); RBC Urine 0-2 /HPF (0-2); Squamous Epithelial Cell Urine 0-2 /HPF (0-2); WBC Urine 0-5 /HPF (0-5)
[2024-05-31 17:19] LABS: Cancel Lactic Acid Canceled
[2024-05-31] MEDS: Enoxaparin Sodium 40 MG/0.4 ML SYRINGE SUBCUT (18:19)
[2024-05-31 18:58] LABS: Procalcitonin 0.18 ng/mL
--- NOTE | 2024-05-31 19:49 | PC.NURSE ---
Addendum entered by Harmony Guzman RN 05/31/24 22:33: IV bolus LR ordered and administered. Post bolus bp 102/50, hr 89. Dr. Gaviria updated Original Note: Patient admitted prior to change of shift at 1900. BP soft 92/56 manually, patient reports feeling mildly nauseous and little lightheaded. Bolus of IV fluids completed, no maintenance fluids ordered. Dr. Gaviria notified.
[2024-05-31] MEDS: Melatonin 3 MG TABLET 6 MG PO (20:10)
[2024-05-31] MEDS: methocarbamoL 500 MG TABLET PO (20:10)
[2024-05-31] MEDS: oxyCODONE HCl Immed Release 5 MG TABLET 10 MG PO (20:10)
[2024-05-31] MEDS: Ampicillin Sodium/Sulbactam Na 3 GM in 0.9 % Sodium Chloride 100 ML IV (21:05)
[2024-06-01] MEDS: 0.9 % Sodium Chloride Flush 3 ML SYRINGE IVFLUSH (00:38)
[2024-06-01] MEDS: Ampicillin Sodium/Sulbactam Na 3 GM in 0.9 % Sodium Chloride 100 ML IV (03:09)
[2024-06-01] MEDS: Acetaminophen 325 MG TABLET 650 MG PO (03:16)
--- NOTE | 2024-06-01 03:24 | PC.NURSE ---
Patient refuses bed alarm, educated patient on safety. Educated patient to call for assistance when getting oob.
[2024-06-01 03:37] VITALS: BP 101/49; PULSE 81; RESP 18; TEMP 36.6; O2SAT 95
[2024-06-01 06:56] LABS: Hematocrit 36.5 % (42.0-52.0); Mean Corpuscular HGB Conc 32.9 g/dl (31.0-36.0); Mean Corpuscular Volume 85.3 fL (80.0-98.0); Mean Platelet Volume 11.2 fL (9.4-12.4); Platelet Count 223 X10*3/uL (160-400); Red Blood Count 4.28 X10*6/uL (4.60-5.80); Red Cell Distribution Width 14.6 % (11.0-16.0); White Blood Count 8.7 X10*3/uL (4.8-10.8)
[2024-06-01] MEDS: methocarbamoL 500 MG TABLET PO (07:03)
[2024-06-01] MEDS: Ibuprofen 800 MG TABLET PO (07:04)
[2024-06-01] MEDS: oxyCODONE HCl Immed Release 5 MG TABLET 10 MG PO ×2 (07:04→09:42)
[2024-06-01] MEDS: Hydroxychloroquine Sulfate 200 MG TABLET 400 MG PO (07:04)
[2024-06-01 07:08] LABS: Anion Gap 12 (12-20); Blood Urea Nitrogen 9 mg/dL (9-16); Calcium 8.6 mg/dL (8.4-10.2); Carbon Dioxide 27 mmol/L (22-29); Chloride 107 mmol/L (96-108); Creatinine Clr Calc Pharmacy 135.6; Estimated Glomerular Filt Rate > 60; Glucose Random 90 mg/dL (60-115); Potassium 3.8 mmol/L (3.3-5.1); Sodium 142 mmol/L (135-145)
[2024-06-01 07:22] VITALS: BP 108/58; PULSE 71; RESP 16; TEMP 36.3; O2SAT 91
--- NOTE | 2024-06-01 08:32 | PM.DS ---
DS: Providers Provider Date of Service: 06/01/24 Date of admission: 05/31/24 15:40 Date of discharge: 06/01/24 Primary care physician: Yudith Lane NP DS: Diagnosis Discharge Diagnosis (1) Aspiration pneumonia: Status: Acute DS: Summary Hospital Course Hospital Course: from initial hpi: 53-year-old male with a PMH significant for HTN,?inflammatory arthritis, and lumbar radiculopathy with sciatica who presents to the ED with?subjective fever, chills, headache, and generally feeling unwell. Patient originally presented to the hospital earlier this morning for L5-S1 microdiscectomy where he vomited during intubation. Surgery was postponed, patient was extubated, observed in the PACU, and then sent home. Reports took a 2-hour nap and then felt unwell upon waking with subjective fever, chills, and nausea but no vomiting. Some mild SOB with deep breathing and ambulation. No chest pain/pressure, palpitations. Denies abd pain. Pt states has felt nauseous since Tuesday which he attributes to switching analgesics from Tramadol to oxycodone. Reports stopped eating by midnight last night, though ate dinner from 10-midnight. In the ED pt was tachycardic up to 130 and mildly hypertensive up to 138/91. Labs were significant for leukocytosis of 15.9, lactic acid 2.8, ALT 41, and CRP 0.97. CXR showed subsegmental atelectasis versus airspace disease at lung bases, which demonstrates changes from CXR this morning that was clear with no acute abnormality. EKG demonstrated sinus tachycardia of 123 without evidence of significant ST elevations or depressions. Pt was treated with ondansetron, IVF, acetaminophen, and started on Zosyn. Pt will be admitted to the hospital for treatment and further evaluation of aspiration pneumonia with sepsis. hospital course: Patient was initially admitted for sepsis due to aspiration pneumonia and was treated with IV Unasyn. Patient had rapid recovery, remained on room air no further fevers and shortness breast significantly improved. He feels back to baseline. Given rapid recovery most likely this was chemical pneumonitis and not bacterial pneumonia. Will hold off on further antibiotics. Patient will monitor symptoms and if develops further fever shortness of breath will pursue medical evaluation for initiation of antibiotics. For hypertension will continue lisinopril. For lumbar radiculopathy with sciatica we will follow up with Neurosurgery. For inflammatory arthritis continue Plaquenil. For GERD continue PPI. For morbid obesity weight loss recommended. Time Attestation Discharge Coordination Time (in mins): 32 Quality: Safe Use of Opioids Does Pt have an Active Cancer Diagnosis on the Problem List?: No Quality: Stroke Does the patient have a stroke diagnosis?: No Physical Exam Vital Signs: Vital Signs: Last Vital Signs Temp 97.3 F 06/01/24 07:22 Pulse 71 06/01/24 07:22 Resp 16 06/01/24 07:22 BP 108/58 L 06/01/24 07:22 Pulse Ox 91 L 06/01/24 07:22 O2 Del Method Room Air 06/01/24 07:22 BMI result Body Mass Index 45.2 General: AO X 3, no acute distress Resp: CTA bilateral, no accessory muscles used CVS: S1,S2,RRR GI: soft, non tender, non distended Neuro: motor grossly intact, alert Psych: appropriate affect, appropriate insight DS: Data Data Completed and Pending Labs on day of discharge: Laboratory Results - last 24 hr 05/31/24 05/31/24 05/31/24 14:09 14:33 14:51 WBC 15.9 H RBC 5.06 Hgb 14.5 Hct 41.3 L MCV 81.6 MCH 28.7 MCHC 35.1 RDW 14.2 Plt Count 302 MPV 10.5 Immature Gran % (Auto) 0.3 Neut % (Auto) 86.1 H Lymph % (Auto) 8.1 L [place] % (Auto) 5.2 Eos % (Auto) 0.0 Baso % (Auto) 0.3 Lymph # (Auto) 1.3 [place] # (Auto) 0.8 Eos # (Auto) 0.0 Baso # (Auto) 0.0 Abs Immat Gran (auto) 0.04 H Absolute Neuts (auto) 13.7 H Absolute Nucleated RBC 0.000 Nucleated RBC % (auto) 0.0 Sodium 139 Potassium 4.3 Chloride 106 Carbon Dioxide 21 L Anion Gap 16 BUN 9 Creatinine 1.01 Estim Creat Clear Calc 120.8 Estimated GFR > 60 Random Glucose 156 H Lactic Acid 2.8 H* Lactic Acid F/U @ 2Hr Calcium 9.8 D Total Bilirubin 0.9 AST 41 H ALT 37 Alkaline Phosphatase 49 C-Reactive Protein 0.97 H Total Protein 7.9 Albumin 4.1 Lipase 16 Procalcitonin 0.18 Urine Color Urine Appearance Urine pH Ur Specific [place] Urine Protein Urine Glucose (UA) Urine Ketones Urine Blood Urine Nitrite Ur Leukocyte Esterase Urine RBC Urine WBC Ur Squamous Epith Cells Urine Bacteria Hyaline Casts Influenza Type A (PCR) NEGATIVE Influenza Type B (PCR) NEGATIVE RSV RNA Qual (PCR) NEGATIVE SARS-CoV-2 RNA (RT-PCR) NEGATIVE 05/31/24 05/31/24 06/01/24 16:21 16:50 06:06 WBC 8.7 RBC 4.28 L Hgb 12.0 L Hct 36.5 L MCV 85.3 MCH 28.0 MCHC 32.9 RDW 14.6 Plt Count 223 D MPV 11.2 Immature Gran % (Auto) Neut % (Auto) Lymph % (Auto) [place] % (Auto) Eos % (Auto) Baso % (Auto) Lymph # (Auto) [place] # (Auto) Eos # (Auto) Baso # (Auto) Abs Immat Gran (auto) Absolute Neuts (auto) Absolute Nucleated RBC 0.000 Nucleated RBC % (auto) 0.0 Sodium 142 Potassium 3.8 Chloride 107 Carbon Dioxide 27 Anion Gap 12 BUN 9 Creatinine 0.90 Estim Creat Clear Calc 135.6 Estimated GFR > 60 Random Glucose 90 Lactic Acid Lactic Acid F/U @ 2Hr 2.2 H* Calcium 8.6 D Total Bilirubin AST ALT Alkaline Phosphatase C-Reactive Protein Total Protein Albumin Lipase Procalcitonin Urine Color Yellow Urine Appearance Clear Urine pH 6.0 Ur Specific Wal[place] 1.025 Urine Protein Trace Urine Glucose (UA) Negative Urine Ketones 15 Urine Blood Negative Urine Nitrite Negative Ur Leukocyte Esterase Negative Urine RBC 0-2 Urine WBC 0-5 Ur Squamous Epith Cells 0-2 Urine Bacteria None Seen Hyaline Casts 0-2 Influenza Type A (PCR) Influenza Type B (PCR) RSV RNA Qual (PCR) SARS-CoV-2 RNA (RT-PCR) Discharge Plan Discharge Anticipated Discharge Date/Time: 06/01/24 08:29 Patient Disposition: Home, Self-Care Discharge Diagnosis: aspiration pneumonitis Referrals: Yudith Lane [employer] [Primary Care Provider] - 1 Week Discharge Medications: New ondansetron 4 mg tablet,disintegrating 4 mg PO Q8H PRN (Reason: nausea and vomiting) Qty: 20 0RF Continued oxycodone 10 mg Tablet 10 mg PO BID PRN (Reason: Pain) methocarbamol 500 mg tablet 500 mg PO BID ibuprofen [Advil] 200 mg Tablet 800 mg PO Q8H PRN (Reason: Pain) omeprazole magnesium [Prilosec OTC] 20 mg Tablet,Delayed Release (Dr/Ec) 20 mg PO DAILY PRN (Reason: Gastric Reflux) hydroxychloroquine 200 mg tablet 400 mg PO DAILY copper 2 mg Tablet 2 mg PO DAILY curcumin-phosphatidylcholine 500 mg Capsule 500 mg PO DAILY cholestyramine-aspartame 4 gram powder in packet 1 ea PO DAILY lisinopril 5 mg tablet 5 mg PO DAILY Discharge Orders: Discharge Order (Routine); Ordered 06/01/24 Ordered By: Ken Ya Diet: Advance to usual diet Activity on Discharge: As tolerated Stand Alone Forms: Patient Portal Discharge page Print Language: [place] Care Plan Goals: recovery Health Concerns: pneumonitis Plan of Treatment: zofran for nausea, monitor symptoms, if recurrent fever, sob, seek medical attention as may be sign of concurrent bacterial pneumonia requiring antibiotics, however, at this time appears more consistent with chemical pneumonitis and will forgo antibiotics. Assessment: see above
--- NOTE | 2024-06-01 10:51 | MHC.CM.PN ---
EMR REVIEWED, PT ASPIRATION PNA, CM MET W/PT WHO IS A [employer] [facility] [place], PT REPORTS HE DROVE TO HOSPITAL AND WILL TRANSPORT SELF HOME, PT IS INDEP W/ALL CARE, HAS A CANE AT BEDSIDE AND NO OTHER DME, NO HOME SERVICES, PT VERIFIES PCP ON FILE IS CORRECT, PT EDUCTAED AND DECLINED TO COMPLETE A HCP HOWEVER GIVEN A BLANK COPY/INFORMATIONAL HANDOUT. PT DISCHARGED HOME SELF CARE TODAY AND WILL SELF TRANSPORT
== END 2024-06-01 09:46 | disposition home or self-care (01) | DRG 143 ==
LOC: HO.ED 15:11 → HO.EDOVER 16:03 → HO.S3 16:29
PROVIDERS: Physician Assistant; Admitting Provider Student in an Organized Health Care Education/Training Program; Emergency Provider Emergency Medicine; PCP Nurse Practitioner; Visit Provider Internal Medicine
DX: J95.4 Chemical pneumonitis due to anesthesia (principal); I10 Essential (primary) hypertension; M13.80 Other specified arthritis, unspecified site; M54.16 Radiculopathy, lumbar region; T41.45XA Adverse effect of unspecified anesthetic, initial encounter; Z87.891 Personal history of nicotine dependence; Z20.822 Contact with and (suspected) exposure to COVID-19; Z79.899 Other long term (current) drug therapy
CPT/HCPCS: 0241U; 36415; 71045; 80048; 80053; 81001; 83605; 83690; 84145; 85025; 85027; 86140; 87040; 93005; 99285; J0295; J1650; J2405; J2543; J7120

== ENCOUNTER → 2024-05-31 13:31 | Outpatient (BNV) | payer OTHER, SELFPAY | PROVIDERS: Admitting Provider Student in an Organized Health Care Education/Training Program; Emergency Provider Emergency Medicine; PCP Nurse Practitioner; Visit Provider Internal Medicine Cardiovascular Disease | DX: R00.0 Tachycardia, unspecified (principal) | CPT/HCPCS: 93010 ==

== ENCOUNTER → 2024-05-31 14:06 | Outpatient (BNV) | payer OTHER, SELFPAY | PROVIDERS: Admitting Provider Student in an Organized Health Care Education/Training Program; Emergency Provider Emergency Medicine; PCP Nurse Practitioner; Visit Provider Radiology Diagnostic Radiology | DX: J69.8 Pneumonitis due to inhalation of other solids and liquids (principal); Y84.4 Aspiration of fluid as the cause of abnormal reaction of the patient, or of later complication, without mention of misadventure at the time of the procedure | CPT/HCPCS: 71045 ==

== ENCOUNTER → 2024-05-31 15:40 | Outpatient (BNV) | payer OTHER, SELFPAY | PROVIDERS: Admitting Provider Student in an Organized Health Care Education/Training Program; Emergency Provider Emergency Medicine; PCP Nurse Practitioner; Visit Provider Student in an Organized Health Care Education/Training Program | DX: J69.0 Pneumonitis due to inhalation of food and vomit (principal); R11.2 Nausea with vomiting, unspecified; R51.9 Headache, unspecified | CPT/HCPCS: 99223; 99239 ==

== ENCOUNTER 2024-06-07 08:04 | Day surgery (SDC) | payer OTHER, SELFPAY ==
[2024-06-01 13:25] VITALS: BP 133/71; PULSE 96; RESP 16; TEMP 36.1; O2SAT 96
--- NOTE | 2024-06-05 13:40 | HO.ANESPROP2 ---
Documented by User: Merary Aponte NP 06/06/24 11:02 HPI - Anesthesia Eval Consult details Narrative: 53yo M for L5-S1 Far Lateral MicroLumbar discectomy with [employer] tubes Previously attempted 05/31/24 with GA-ETT 7.5. Case aborted d/t contents in stomach/aspirate. See anesthesia record on chart. T/C to patient 06/05/24 - no respiratory symptoms, reports feeling nausea/fullness like last week. Plan for clear liquids 06/06/24. Case reviewed with Dr Brannon. Preop erythromycin IV 30 mins before OR. 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 Only limited by back pain s/p Faison 01/2024 with TIVA BMI 46 half-way hydroxychloroquine for sero-negative RA GERD: ppi prn. Will take DOS PMFSH Active Problems Active Problems: All Active Problems (Updated 06/04/24 @ 15:55 by Brenda Conley PA-C) Tubular adenoma of colon (Acute) Personal history of nicotine dependence (Acute) Aspiration pneumonia (Acute) Acidosis, lactic (Acute) Elevated WBC count (Acute) Lumbar radiculopathy (Acute) Sciatica (Acute) Long-term use of hydroxychloroquine (Acute) Inflammatory arthritis (Acute) Left radial head fracture (Acute) Pain in joint, multiple sites (Acute) Past Medical History Medical History Tubular adenoma of colon Personal history of nicotine dependence GERD (gastroesophageal reflux disease) Hx of fracture of skull (~1975) Lactose intolerance Arthritis Pain in joint, multiple sites Obesity (BMI 35.0-39.9 without comorbidity) Family History Family History Maternal Grandmother Dementia Mother Osteoarthritis Ankylosing spondylitis Aortic aneurysm Maternal Grandfather Lung tumor Father Pancreatic cancer Family history of problems with anesthesia: No Surgical History Surgical History History of colonoscopy History of wisdom tooth extraction History of cholecystectomy (~1994) History of Problems with Anesthesia: No Social History Social History Household Members: None Housing: Condominium Are you a primary child care associate teacher to a significant other at home: No Do you presently have visiting nurse or other home services: No Alcohol intake: current Alcohol intake frequency: holidays/special occasions only Patient Tobacco Use Status: Former Tobacco user Tobacco use type: Cigarette Second Hand Smoke Exposure: No service: No Current occupational status: employed 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 [employer] [place] Med[place] Allergies Allergy/AdvReac Type Severity Reaction Status Date / Time animal dander Allergy Intermediate Itchy Eyes Verified 06/07/24 09:49 mite-Dermatophagoides Allergy Intermediate Unknown Verified 06/07/24 09:49 farinae, chau [dust mite - [place]] Seasonal Allergies Allergy Intermediate Itchy Eyes Verified 06/07/24 09:49 Home Medications ?Medication ?Instructions ?Recorded ?Confirmed ?Last Taken ?Type cholestyramine-aspartame 4 gram 1 ea PO DAILY 09/06/23 05/31/24 05/30/24 History oral powder for susp in a packet lisinopril 5 mg tablet 5 mg PO DAILY 04/24/24 05/31/24 05/30/24 History ibuprofen 200 mg tablet (Advil) 800 mg PO Q8H PRN Pain 05/23/24 05/31/24 Unknown History methocarbamol 500 mg tablet 500 mg PO BID 05/23/24 05/31/24 05/30/24 History omeprazole magnesium 20 mg 20 mg PO DAILY PRN Gastric Reflux 05/23/24 05/31/24 Unknown History tablet,delayed release (Prilosec OTC) oxycodone 10 mg tablet 10 mg PO BID PRN Pain 05/23/24 06/07/24 06/07/24 History copper 2 mg tablet 2 mg PO DAILY 05/31/24 05/31/24 05/30/24 History curcumin-phosphatidylcholine 500 500 mg PO DAILY 05/31/24 05/31/24 05/30/24 History mg capsule hydroxychloroquine 200 mg tablet 400 mg PO DAILY 05/31/24 05/31/24 05/30/24 History Assessment and Plan Final Anesthetic Review Family History of Problems with Anesthesia: No History of Problems with Anesthesia: No Documented by User: Farzana Santos MD 06/07/24 10:33 [facility] Past Medical History Medical History Tubular adenoma of colon Personal history of nicotine dependence GERD (gastroesophageal reflux disease) Hx of fracture of skull (~1975) Lactose intolerance Arthritis Pain in joint, multiple sites Obesity (BMI 35.0-39.9 without comorbidity) Family History Family History Maternal Grandmother Dementia Mother Osteoarthritis Ankylosing spondylitis Aortic aneurysm Maternal Grandfather Lung tumor Father Pancreatic cancer Surgical History Surgical History History of colonoscopy History of wisdom tooth extraction History of cholecystectomy (~1994) Social History Social History Household Members: None [facility] Are you a primary child care associate teacher to a significant other at home: No Do you presently have visiting nurse or other home services: No Alcohol intake: current Alcohol intake frequency: holidays/special occasions only Patient Tobacco Use Status: Former Tobacco user Tobacco use type: Cigarette Second Hand Smoke Exposure: No service: No Current occupational status: employed 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 [employer] [place] Allergies Allergy/AdvReac Type Severity Reaction Status Date / Time animal dander Allergy Intermediate Itchy Eyes Verified 06/07/24 09:49 mite-Dermatophagoides Allergy Intermediate Unknown Verified 06/07/24 09:49 farinae, chau [dust mite - [place]] Seasonal Allergies Allergy Intermediate Itchy Eyes Verified 06/07/24 09:49 Home Medications ?Medication ?Instructions ?Recorded ?Confirmed ?Last Taken ?Type cholestyramine-aspartame 4 gram 1 ea PO DAILY 09/06/23 05/31/24 05/30/24 History oral powder for susp in a packet lisinopril 5 mg tablet 5 mg PO DAILY 04/24/24 05/31/24 05/30/24 History ibuprofen 200 mg tablet (Advil) 800 mg PO Q8H PRN Pain 05/23/24 05/31/24 Unknown History methocarbamol 500 mg tablet 500 mg PO BID 05/23/24 05/31/24 05/30/24 History omeprazole magnesium 20 mg 20 mg PO DAILY PRN Gastric Reflux 05/23/24 05/31/24 Unknown History tablet,delayed release (Prilosec OTC) oxycodone 10 mg tablet 10 mg PO BID PRN Pain 05/23/24 06/07/24 06/07/24 History copper 2 mg tablet 2 mg PO DAILY 05/31/24 05/31/24 05/30/24 History curcumin-phosphatidylcholine 500 500 mg PO DAILY 05/31/24 05/31/24 05/30/24 History mg capsule hydroxychloroquine 200 mg tablet 400 mg PO DAILY 05/31/24 05/31/24 05/30/24 History Exam Airway Mallampati Class: III TM Dist: >3cm Neck ROM: Full Loose/Missing/Broken Teeth: No Heart: RRR Lungs: CTA Assessment and Plan Final Anesthetic Review NPO: Yes ASA Class: III Final Preanesthetic Review: Meds/Allgs Chart Reviewed, Consent Obtained/Reviewed and Anes Risks/Benef Reviewed Patient Risk: Intermediate Procedure Risk: Intermediate Anesthetic Plan Anesthetic Plan: GA Disposition: Standard PACU
--- OUTSIDE RECORDS SUMMARY | 2024-06-07 08:05 | XMS_ITS ---
Author Organization [facility] Address [address] [place] [address] Care Team Providers Care Administrative Support Coordinator Name Role Phone MI MIRANDA M.D. Primary Care Provider Nichole vailable Billy Castellanos Jr Unavailable REASON FOR VISIT pathology Encounters Encounter Location Date Provider Diagnosis [facility] [address] [place] [address] 01/23/2024 Billy Castellanos Jr PLAN OF TREATMENT No Information
--- OUTSIDE RECORDS SUMMARY | 2024-06-07 08:06 | XMS_ITS | Patient Health Record ---
Author Organization [facility] Address [address] [place] [address] Care Team Providers Care Hat Former Name Role Phone MI MIRANDA M.D. Primary Care Provider Nichole caleb Castellanos Jr Billy Unavailable ALLERGIES Allergen (clinical drug ingredient) Drug/Non Drug Allergy documented on EMR Reaction Allergy Type Onset Date Status Dust Mites Unknown Allergy Active seasonal (uncoded) Unknown Allergy A ctive RESULTS Component Value Reference Range Notes Pathology Reviewed date:01/23/2024 08:54:43 AM Interpretation: Performing Lab:[facility], [address] [place] [id number] Notes/Report: REASON FOR REFERRAL No Information MEDICATIONS Medication [...] Problem Colon cancer screening (Z12.11) Active confirmed 506851067 Problem Encounter for other preprocedural examination (Z01.818) Active confirmed 574696469 Problem Loose stools (R19.5) Active confirmed [id number] VITAL SIGNS Temperature 97.5 degrees Fahrenheit 12/12/2023 Blood pressure diastolic 00 mm Hg 12/12/2023 Height 5 ft 10 in in 12/12/2023 Blood pressure systolic 000 mm Hg 12/12/2023 Weight 315 lb 6 oz lbs 12/12/2023 BMI 45.25 kg/m2 12/12/2023 Encounters Encounter Location Date Provider Diagnosis [facility] [address] [place] [phone] 01/18/2024 Billy Castellanos Jr Encounter for screening colonoscopy Z12.11 and Colon polyps K63.5 [facility] [address] [place] [phone] 11/28/2023 Billy Castellanos Jr [facility] [address] [place] [phone] 12/12/2023 Billy Castellanos Jr Colon cancer screening Z12.11 and Loose stools R19.5 [facility] [address] [place] [phone] 01/23/2024 Billy Castellanos Jr ASSESSMENTS Encounter Date Diagnosis Assessment Notes Treatment Notes Treatment Clinical Notes 01/18/2024 Encounter for screening colonoscopy (ICD-10 - Z12.11) 01/18/2024 Colon polyps (ICD-10 - K63.5) 12/12/2023 Colon cancer screening (ICD-10 - Z12.11) Colonoscopy material was printed 12/12/2023 Loose stools (ICD-10 - R19.5) PLAN OF TREATMENT Future Test Test Name Order Date COLONOSCOPY 12/12/2023 Insurance Providers Payer Name Payer Address Payer Phone Subscriber Number Group Number Insured Name Patient Relationship to Insured Coverage Start Date Coverage End Date [employer] [id number] [place] [address] [id number] SUE MOURA Self - patient is the insured MEDICAL (GENERAL) HISTORY Medical History History ICD Code Inflammatory arthritis Lactose intolerance Elevated BMI Surgical History Surgery Date(Month/Year) Cholecystectomy 1992
--- OUTSIDE RECORDS SUMMARY | 2024-06-07 08:06 | XMS_ITS ---
Author Organization [facility] Address [address] [place] [address] Care Team Providers Care Telescope Maintenance Name Role Phone MI MIRANDA M.D. Primary Care Provider Nichole vailable Billy Castellanos Jr Unavailable [phone] REASON FOR VISIT screening Encounters Encounter Location Date Provider Diagnosis [facility] [place] [facility] [address] [place] [id number] 01/18/2024 Billy Castellanos Jr Encounter for screening colonoscopy Z12.11 and Colon polyps K63.5 ASSESSMENTS Encounter Date Diagnosis Assessment Notes Treatment Notes Treatment Clinical Notes 01/18/2024 Encounter for screening colonoscopy (ICD-10 - Z12.11) 01/18/2024 Colon polyps (ICD-10 - K63.5) PLAN OF TREATMENT No Information
--- OUTSIDE RECORDS SUMMARY | 2024-06-07 08:06 | XMS_ITS ---
Author Organization [facility] Address [address] [place] [address] Care Team Providers Care Expeller Operator Name Role Phone MI MIRANDA M.D. Primary Care Provider Billy Giron Jr Unavailable ALLERGIES Allergen (clinical drug ingredient) Drug/Non Drug Allergy documented on EMR Reaction Allergy Type Onset Date Status Dust Mites Unknown Allergy Active seasonal (uncoded) Unknown Allergy A ctive REASON FOR VISIT Patient presents today for a screening colonoscopy MEDICATIONS Medication SIG (Take, Route, Frequency, Duration) Notes Start Date End Date Status MiraLax (colon prep) 17 GM/SCOOP mixed with Gatorade or Crystal Light Orally begin at 5:00 p.m. the day before the procedure for 1 day 12/12/2023 Active Cholestyramine Light 4 GM Oral for 30 Active Hydroxychloroquine Sulfate 2 00 MG Oral for 30 Active SOCIAL HISTORY Tobacco Use: Social History Observation [...] Problem Colon cancer screening (Z12.11) Active confirmed [id number] Problem Encounter for other preprocedural examination (Z01.818) Active confirmed 737737783 Problem Loose stools (R19.5) Active confirmed 654126920 VITAL SIGNS BMI 45.25 kg/m2 12/12/2023 Blood pressure systolic 000 mm Hg 12/12/19 24 Blood pressure diastolic 00 mm Hg 024 Height 5 ft 10 in in 12/12/2023 Temperature 97.5 degrees Fahrenheit 12/12/19 24 Weight 315 lb 6 oz lbs 12/12/2023 Encounters Encounter Location Date Provider Diagnosis [facility] [address] [place] [address] 12/12/2023 Billy Castellanos Jr Colon cancer screening Z12.11 and Loose stools R19.5 ASSESSMENTS Encounter Date Diagnosis Assessment Notes Treatment Notes Treatment Clinical Notes 12/12/2023 Colon cancer screening (ICD-10 - Z12.11) Colonoscopy material was printed 12/12/2023 Loose stools (ICD-10 - R19.5) PLAN OF TREATMENT Medication Medication Name Sig Start Date Stop Date Notes MiraLax (colon prep) 17 GM/SCOOP mixed with Gatorade or Crystal Light Orally begin at 5:00 p.m. the day before the procedure for 1 day 12/12/2023 Treatment Notes Assessment Notes Colon cancer screening Colonoscopy mater ial was printed Future Test Test Name Order Date COLONOSCOPY 12/12/2023 Next Appt Details Follow Up: 1 Year, Reason: Progress Notes * Examination Category Sub-Category Detail Notes General Examination GENERAL APPEARANCE: in no ac tara distress HEAD: normocephalic EYES: sclera non-icteric NECK/THYROID: no lymphadenopathy HEART: S1, S2 normal, no mu rmurs CHEST: normal shape and exp ansion LUNGS: clear to auscultatio n bilaterally ABDOMEN: soft, nontender, non distended, bowel sounds present, no organomegaly SKIN: anicteric EXTREMITIES: no clubbing, cyanosi s, or edema. He ambulates with a cane PSYCH: cognitive function i ntact ORAL CAVITY: mucosa moist
--- NOTE | 2024-06-07 09:44 | P.HPSUR_ITS ---
Pre-Procedural Eval Section A - 24 Hr Update-Section A only Date of Service: 06/07/24 The patient is an INPATIENT: No Changes since office visit: No Cold of Flu in the past 2 weeks, No New Medical Problems, No Changes in Medication and No Patient answered all questions The patient has been examined within 24 hours of the surgical procedure. The History & Physical has been completed within 30 days and I have reviewed it.: No Section B - Complete if H&P > 30 days Chief Complaint: Radiculopathy, lumbar region Allergies: Allergies Allergy/AdvReac Type Severity Reaction Status Date / Time animal dander Allergy Intermediate Itchy Eyes Verified 05/31/24 13:31 mite-Dermatophagoides Allergy Intermediate Unknown Verified 05/31/24 13:31 farinae, chau [dust mite - [place] Citizen] Seasonal Allergies Allergy Intermediate Itchy Eyes Verified 05/31/24 13:31 Review of Systems Sugical H&P ROS: Negative: Constitution, Cardiovascular, Respiratory, Neurological, Psychiatric, Hem-Onc, Allergic/Immunologic, Gastrointestinal, Genitourinary, Musculoskeletal, Integumentary, Endocrine and Eyes/Ears/Nose /Throat Exam Surgical H&P Exam: Normal: HEENT, Normal: Heart, Normal: Lungs, Normal: Extremities, Normal: Abdomen, Normal: Skin and Normal: Neurological (awake, alert, oriented x 3 ) Plan Diagnosis/Plan: Unchanged right L5-S1 extraforaminal diskectomy using metrx tubes Time Spent With Patient Time: Total time managing care of this patient today _5___ minutes.
[2024-06-07 09:53] VITALS: BP 134/72; PULSE 106; RESP 14; TEMP 36.1; O2SAT 95; BMI 44.9
[2024-06-07] MEDS: Gabapentin 300 MG CAPSULE PO (10:03)
[2024-06-07] MEDS: methocarbamoL 750 MG TABLET PO (10:03)
[2024-06-07] MEDS: Lactated Ringers 1,000 ML 100 ML IVCONT (10:05)
--- NOTE | 2024-06-07 12:59 | W.PM.OPN ---
Operative Note Operative Note Date of Service: 06/07/24 Narrative: Preop diagnosis: Right lumbar disc herniation L5-S1, extraforaminal ( far lateral) with lumbar radiculopathy Postop diagnosis: same Procedure: Right L5-S1 microdiskectomy, extraforaminal approach with microscope Description of procedure: This patient is suffering from a right L5 lumbar radiculopathy due to an L5-S1 extraforaminal lumbar disc herniation compressing the L5 nerve root. The patient was offered a lumbar microdiskectomy through an extraforaminal approach. The procedure and complications were explained. The patient was consented. The patient was brought to the operating room and endotracheally intubated. The patient was turned in the prone position on Asa frame. Prepping and draping was done followed by time-out. The lateral border of the L5-S1 facet joint was marked on the skin with x-ray. A right paramedian incision was made. The muscle fascia was opened. Sequential dilators were inserted followed by a 18 mm Metrx tube. the lateral border of the L5-S1 facet joint as well as the transverse process of L5 was exposed. The microscope was brought in. The lateral part of facet joint was resected with a high-speed drill. The medial border of the S1 pedicle was identified as well as the foramen. I went into the Kambin's triangle and exposed the intervertebral disc. There was significant foraminal stenosis. However I was not able to palpate disc herniation. I demonstrated with a 4. [place] that I was at and in the L5-S1 disc space. A nerve hook could be easily passed into the foramen and under the L 5 nerve root as sign of adequate decompression. Physician assistant to the vice president took over the procedure and performed hemostasis and closure of the incision in 2 layers. Steri-Strips were used to approximate the incision. An Oppsite with tegaderm was used to cover the incision. All sponge and needle counts were correct. The patient was extubated and transported in stable condition to recovery room. Surgeon: Janes Harvey MD Assist: AGUSTIN Antunez Anesthesia: general Estimated blood loss: minimal Surgical time: 60 minutes Specimen: none Deposition: Discharge home
--- NOTE | 2024-06-07 13:12 | P.DS_ITS ---
DS: Providers Provider Date of Service: 06/07/24 Primary care physician: Monica Curtis MD DS: Summary Time Attestation Discharge Coordination Time (in mins): 15 Quality: Safe Use of Opioids Does Pt have an Active Cancer Diagnosis on the Problem List?: No Quality: Stroke Does the patient have a stroke diagnosis?: No Physical Exam Vital Signs: Vital Signs: Last Vital Signs Temp 97.0 F 06/07/24 09:53 Pulse 106 H 06/07/24 09:53 Resp 14 06/07/24 09:53 BP 134/72 06/07/24 09:53 Pulse Ox 95 06/07/24 09:53 O2 Del Method Room Air 06/07/24 09:53 BMI result Body Mass Index 44.9 Discharge Plan Discharge Patient Disposition: Home, Self-Care Referrals: Monica Curtis MD [Primary Care Provider] - 1 Week Discharge Medications: New oxycodone 5 mg tablet 5 mg PO Q6H PRN (Reason: pain (scale score 7-10)) Qty: 30 0RF Rx Instructions: Partial Fill upon patient request. Continued methocarbamol 500 mg tablet 500 mg PO BID ibuprofen [Advil] 200 mg Tablet 800 mg PO Q8H PRN (Reason: Pain) omeprazole magnesium [Prilosec OTC] 20 mg Tablet,Delayed Release (Dr/Ec) 20 mg PO DAILY PRN (Reason: Gastric Reflux) hydroxychloroquine 200 mg tablet 400 mg PO DAILY copper 2 mg Tablet 2 mg PO DAILY curcumin-phosphatidylcholine 500 mg Capsule 500 mg PO DAILY ondansetron 4 mg tablet,disintegrating 4 mg PO Q8H PRN (Reason: nausea and vomiting) Qty: 20 0RF cholestyramine-aspartame 4 gram powder in packet 1 ea PO DAILY lisinopril 5 mg tablet 5 mg PO DAILY Discontinued oxycodone 10 mg Tablet 10 mg PO BID PRN (Reason: Pain) Discharge Orders: Discharge Order (Routine); Ordered 06/07/24 Ordered By: Meño Cuadra Diet: Advance to usual diet Activity on Discharge: As tolerated Activity Restrictions/Additional Instructions: After your spinal surgery we ask you to observe the following restrictions/guidelines: Activity: It is normal to feel some discomfort as you increase your activity, but that will improve with time. We ask you avoid heavy lifting or acitivities that cause pain. As a general rule, 8lbs is a safe limit for lifting right after surgery. Walk as much as you feel comfortable but not to exhaustion. You will feel extra tired the first few days after surgery. Stay well hydrated. It is OK to walk up and down stairs You may return to driving when you are off narcotics (such as vicodin, oxycodone, dilaudid, etc), and you are back to normal functional capacity. If you have any concerns please check with office before driving. Return to work is specific to each patient and each surgery, so please speak with your doctor/PA at first follow up. Please bring paperwork such as FMLA at that time if you need it filled out. Medications: We recommend you take 1,000mg Tylenol every 8 hours for the first few weeks after surgery, if you do not have any liver issues and can tolerate this medication. Do not exceed 4,000mg daily. We will give you a short supply of narcotics after surgery (usually one weeks worth). If you need more please call the office but do not use more than prescribed. You will need to give our office 48 hours notice if you need narcotics refilled and we do not fill narcotics on weekends or evenings. If you are on a narcotic, it is a good idea to take a stool softener such as colace or senna to avoid constipation If you take blood thinner such as aspirin, Plavix, Coumadin, Effient, Eliquis etc for conditions such as Afib, DVT, Pulmonary embolus, coronary disease, stents etc please speak with your surgeon about specific details as to when you can resume these medications. You can resume NSAIDs on post op day 1 (eg: Motrin, Naproxen, etc). Follow up: Please call the office, , after surgery to arrange a 3 week follow up for wound check. Wound Care: You may remove your dressing on the first day after surgery. ?You may ?leave open to air. Please do not remove the steri strips underneath. they will fall off on their own in one week. IT IS NORMAL FOR THE WOUND TO OOZE OR BE BLOODY FOR A FEW DAYS AFTER SURGERY. ?IF THIS HAPPENS JUST PLACE NEW DRESSING OVER IT TO AVOID STAINING CLOTHES. You may shower on post op day # 1 We ask that you do not let the water soak the wound. If it does get wet, just towel dry lightly. Please do not scrub your incision or place any type of chemical/ointment on the wound. No tub baths, pools or jacuzzis for one month. If you have any leaking or redness from your wound, or fevers, please call the office. Print Language: Greenlandic
[2024-06-07 13:30] VITALS: BP 111/78; PULSE 95; RESP 14; O2SAT 96
[2024-06-07 13:35] VITALS: BP 111/78; PULSE 95; RESP 14; O2SAT 96
[2024-06-07 13:40] VITALS: BP 111/78; PULSE 95; RESP 14; O2SAT 96
[2024-06-07 13:55] VITALS: BP 135/80; PULSE 95; RESP 14; TEMP 36.3; O2SAT 96
== END 2024-06-07 14:31 | disposition home or self-care (01) ==
PROVIDERS: PCP Family Medicine; Visit Provider Neurological Surgery
PROC: (CPT 63056; principal; 2024-06-07 11:00)
DX: M51.16 Intervertebral disc disorders with radiculopathy, lumbar region (principal); J30.2 Other seasonal allergic rhinitis; Z87.891 Personal history of nicotine dependence
CPT/HCPCS: 63056; J0131; J0330; J0690; J1100; J1364; J1885; J2003; J2371; J2405; J2704; J3010

== ENCOUNTER → 2024-06-07 08:04 | Outpatient (BNV) | payer OTHER, SELFPAY | PROVIDERS: PCP Family Medicine; Visit Provider Neurological Surgery | DX: M51.26 Other intervertebral disc displacement, lumbar region (principal); M54.16 Radiculopathy, lumbar region | CPT/HCPCS: 63056; 99499 ==

== ENCOUNTER 2024-06-21 09:59 | Outpatient (AMB) | payer OTHER, SELFPAY ==
--- NOTE | 2024-06-21 10:02 | A.SPINEOV_ITS ---
Intake Visit Reasons: 2week post op Intake Note: Mr. Anand is here today for his 2nd post-operative visit. Window Shade Cloth Sewer Required: No Allergies animal dander Allergy (Intermediate, Verified 06/07/24 09:49) Itchy Eyes mite-Dermatophagoides farinae, chau [dust mite - [place]] Allergy (Intermediate, Verified 06/07/24 09:49) Unknown Seasonal Allergies Allergy (Intermediate, Verified 06/07/24 09:49) Itchy Eyes Assessment & Plan Assessment & Plan (1) Lumbar radiculopathy: Code(s): M54.16 - Radiculopathy, lumbar region Category: Medical Plan Procedure: Right L5-S1 microdiskectomy Suresh comes in today for his 1st postoperative visit. He reports that overall he is satisfied with the surgery but continues to have some posterior buttocks/thigh radicular symptoms. His right lateral calf pain has resolved since his surgery which he is very happy about. We discussed the postoperative healing course and I answered all of his questions to the best of my ability. He asked several questions regarding the postoperative healing course including what can be done for him if his radicular pain does not fully resolve. We discussed this during his visit. No new neurological deficits. Patient ambulates with the assistance of a cane and rises from a seated position without difficulty. Posterior incision site is closed, well healing, with no signs of drainage. Typically would follow up again in 6 weeks for a subsequent postoperative visit, however Suresh is scheduled to go back to work on July 16, and would like to me before then if possible to ensure that his radicular symptoms are gone prior to him attempting to return to work. I believe this is reasonable and we will see him in 3 weeks to see how he is doing. I suspect that he may just be dealing with some residual postoperative inflammation which will resolve in the coming weeks. Meño Harvey MD,PhD [facility] Coding Level of Care Code Global (69841) Diagnoses Lumbar radiculopathy M54.16
== END 2024-06-21 10:20 | disposition home or self-care (01) ==
PROVIDERS: PCP Family Medicine; Visit Provider Physician Assistant
DX: M54.16 Radiculopathy, lumbar region (principal)
CPT/HCPCS: 99024

== ENCOUNTER → 2024-06-21 09:59 | Outpatient (BNVA) | payer OTHER, SELFPAY | PROVIDERS: PCP Family Medicine; Visit Provider Physician Assistant ==

== ENCOUNTER 2024-06-22 10:56 | Outpatient (AMB) | payer OTHER, SELFPAY ==
--- NOTE | 2024-06-22 07:51 | A.OFFVIS_ITS ---
Intake Visit Reasons: Former Smoker Allergies animal dander Allergy (Intermediate, Verified 06/07/24 09:49) Itchy Eyes mite-Dermatophagoides farinae, chau [dust mite - [place]] Allergy (Intermediate, Verified 06/07/24 09:49) Unknown Seasonal Allergies Allergy (Intermediate, Verified 06/07/24 09:49) Itchy Eyes HPI HPI Former Smoker: Details: Initial visit for this 53yo former smoker with a 30PYH. Patient started smoking at age 18 for 21 years at 1-2ppd. He quit 2009. . Denies marijuana use. Notes social second hand smoke exposure. Denies exposure to chemicals or substances like asbestos. . Denies known family history of lung cancer. Denies personal history of cancers. Denies chest CT in last year. . Denies recent travel outside the [place]. Denies recent respiratory illness or recent hospitalization for respiratory issues. Reports testing positive for COVID. Admits receiving COVID Vaccine. . Denies fever, chills, new/worsening cough, hemoptysis, hoarseness or dysphagia. Denies significant chest pain, significant dyspnea or unintentional weight loss. Patient Lung Cancer Screening Questionnaire reviewed with patient by provider. . Shared Decision Making Completed. Patient meets criteria. Discussed in detail with patient, the risk vs benefit of LDCT screening. Patient consents to proceed with scan. Discussed and encouraged continued smoking cessation. [facility] Medical History (Updated 06/22/24 @ 11:07 by Brenda Conley PA-C) Tubular adenoma of colon Personal history of nicotine dependence GERD (gastroesophageal reflux disease) Hx of fracture of skull (~1975) Lactose intolerance Arthritis Pain in joint, multiple sites Obesity (BMI 35.0-39.9 without comorbidity) Surgical History (Updated 06/22/24 @ 10:58 by Brenda Conley PA-C) History of lumbar discectomy History of colonoscopy History of wisdom tooth extraction History of cholecystectomy (~1994) Family History Maternal Grandmother Dementia Mother Osteoarthritis Ankylosing spondylitis Aortic aneurysm Maternal Grandfather Lung tumor Father Pancreatic cancer Social History (Updated 06/22/24 @ 11:07 by Brenda Conley PA-C) Household Members: None Housing: Condominium Are you a primary rn acute care to a significant other at home: No Do you presently have visiting nurse or other home services: No Alcohol intake: current Alcohol intake frequency: holidays/special occasions only Patient Tobacco Use Status: Former Tobacco user Tobacco use type: Cigarette Years Smoked: (onset 18yo, 1-2ppd x 21yrs, 30PYH - quit 2009) Second Hand Smoke Exposure: No service: No Current occupational status: employed 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 - Patient meets criteria for LDCT for lung cancer screening purposes and is asymptomatic. - Smoking cessation counseling offered. Patients can always call [phone]. - Will arrange for a LDCT scan of the chest for screening purposes at [facility]. - Risks, benefits, and alternatives were discussed in detail and the patient agrees to proceed. - Risks discussed include but are not limited to: radiation exposure, anxiety during testing and while awaiting results, false negatives, false positives and possibility of additional intervention such as further imaging or surgical procedures for benign disease. - Benefits are obviously detection of lung cancer at an early stage which can lead to improved outcomes. - Discussed the importance of screening program compliance with adherence to yearly LDCT scan as scheduled - or sooner interval scans for personalized screening regimen. - Discussed follow up plan. Our office will send a letter discussing results and if needed set up phone call and office visit based on CT findings. - Patient educated on results categorization and the management decisions for suspicious findings potentially found on the screening LDCT scan. Any patient with a Lung RADS score of 3 or 4 will be reviewed by a multidisciplinary team at [facility] to form a plan of action in regards to scan findings. - If further work up is warranted for a suspicious lung finding this will be followed by the Lung Cancer Screening program in conjunction with the Thoracic Surgery Department at [facility]. - A copy of the office note and LDCT will be sent to the patient's PCP - as well as documentation on any associated further plans of care. - Incidental findings on LDCT are the PCP's responsibility. These findings are indicated with an S finding on the LDCT Assessment. A note discussing the findings will be sent to the PCP who is then responsible for further management. - All questions answered.? Coding Level of Care Code Lung Cancer Screening G0296 Diagnoses Personal history of nicotine dependence Z87.891
== END 2024-06-22 11:05 | disposition home or self-care (01) ==
PROVIDERS: PCP Family Medicine; Visit Provider Physician Assistant Medical
DX: Z87.891 Personal history of nicotine dependence (principal)
CPT/HCPCS: G0296

== ENCOUNTER 2024-06-22 11:07 | Outpatient (REF) | payer OTHER, SELFPAY ==
--- NOTE | ~2024-06-22 | CT_ITS ---
EXAMINATION: CT CHEST LOW-DOSE SCREENING WITHOUT CONTRAST CLINICAL INFORMATION: Asymptomatic patient meeting criteria for lung screening. Personal history of nicotine dependence. Former smoker. The patient has a 22 pack-year history of smoking, having quit 13 years ago. COMPARISON: 05/31/2024. TECHNIQUE: Multidetector volumetric non-contrast CT imaging of the chest was obtained on a Somatom Definition scanner using low dose screening CT technique. Axial thin section 0.625 mm reformations in soft tissue and lung windows were obtained. Sagittal and coronal reformations were obtained. Axial MIP images were also created and reviewed. RECONSTRUCTED WIDTH: 1.25 mm x 1.[address] examination was performed using dose optimization techniques as appropriate, variously including the following: *Automated exposure control *Adjustment of mA and/or kV according to patient size (this includes techniques or standardized protocols for targeted exams where dose is matched to indication/reason for exam; i.e. extremities or head) *Use of iterative reconstruction technique TOTAL EXAM DLP: 124 mGy-cm CTDIvol: 3.46 mGy FINDINGS: PULMONARY NODULES: There are some scattered ground-glass opacities seen, the largest measuring about 5 mm (for example 5:236). Some calcified granulomas are present. A few tiny solid micronodules are seen, none larger than 3 mm (see saved giles images). LUNGS: Lungs bilaterally symmetrically expanded. No significant emphysema. There is mild bronchial thickening without bronchiectasis. No effusion or pneumothorax. Central airways patent. LYMPHATIC STRUCTURES: No mediastinal, hilar or axillary adenopathy or free fluid collection. THYROID GLAND: Unremarkable to the extent seen. CARDIOVASCULAR STRUCTURES: Aortic and heart size normal. Mild coronary artery calcifications. No pericardial effusion. UPPER ABDOMEN: Included portions of the solid organs in the upper abdomen unremarkable on noncontrast imaging. Status post cholecystectomy. OSSEOUS STRUCTURES: No suspicious focal findings. SPINAL COMPRESSION: Absent. CT/CT lung screening IMPRESSION: No findings suspicious for malignancy/pulmonary nodule(s)/other. LUNG-RADS CATEGORY ASSESSMENT: 2: Benign. INCIDENTAL FINDINGS (S CATEGORY): Finding: No incidental findings. Significance category: Normal or normal variant. RECOMMENDATION: Low dose lung CT. overall in 1 year. Visual estimate of coronary calcified plaque burden: None. However, this exam cannot replace a dedicated cardiac CT calcium score for accurate assessment. Electronically signed by: Zack Guardado MD 06/25/2024 11:36 AM EST [facility]
== END 2024-06-22 11:08 | disposition home or self-care (01) ==
LOC: HO.CT 11:07
PROVIDERS: PCP Family Medicine; Visit Provider Physician Assistant Medical
DX: Z12.2 Encounter for screening for malignant neoplasm of respiratory organs (principal); Z87.891 Personal history of nicotine dependence
CPT/HCPCS: 71271

== ENCOUNTER 2024-07-03 14:56 | Outpatient (REF) | payer OTHER, SELFPAY ==
[2024-07-03 15:11] LABS: MANUAL DIFF FLAG NO
[2024-07-03 15:57] LABS: Basophils Absolute Auto 0.1 X10*3/uL (0.0-0.2); Basophils Percent Auto 0.6 % (0-2); Eosinophils Absolute Auto 0.3 X10*3/uL (0.0-0.4); Eosinophils Percent Auto 2.6 % (0-4); Hematocrit 42.4 % (42.0-52.0); Imm Gran Abs Auto 0.05 X10*3/uL (0.00-0.03); Imm Gran Pct Auto 0.5 % (0.0-0.4); Lymphocytes Absolute Auto 3.3 X10*3/uL (1.2-4.9); Lymphocytes Percent Auto 33.8 % (20-40); Mean Corpuscular Hemoglobin 28.2 pg (27.0-33.0); Mean Corpuscular Volume 85.5 fL (80.0-98.0); Mean Platelet Volume 11.6 fL (9.4-12.4); Monocytes Absolute Auto 0.6 X10*3/uL (0.1-1.2); Monocytes Percent Auto 6.3 % (2-11); Neutrophils Absolute Auto 5.5 x10*3/uL (2.0-8.3); Neutrophils Percent Auto 56.2 % (45-73); Platelet Count 312 X10*3/uL (160-400); Red Blood Count 4.96 X10*6/uL (4.60-5.80); Red Cell Distribution Width 13.5 % (11.0-16.0); White Blood Count 9.7 X10*3/uL (4.8-10.8)
[2024-07-03 18:24] LABS: Erythrocyte Sedimentation Rate 17 MM/HR (0-15)
== END 2024-07-03 14:57 | disposition home or self-care (01) ==
LOC: HO.LAB 14:56
PROVIDERS: PCP Nurse Practitioner; Visit Provider Nurse Practitioner
DX: R42 Dizziness and giddiness (principal)
CPT/HCPCS: 36415; 85025; 85652

== ENCOUNTER 2024-07-12 09:46 | Outpatient (AMB) | payer OTHER, SELFPAY ==
--- NOTE | 2024-07-12 09:48 | A.SPINEOV_ITS ---
Intake Visit Reasons: 2nd post op Intake Note: Mr. Anand is here today for his 2nd post op visit. 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 To recap he was initially evaluated in clinic for right leg pain. Today he reports continuation of low-grade right leg pain. He feels as though he has quite a bit of weakness in his right leg which he attributes to deconditioning as a result of the pain that he was in prior to surgery. We discussed the postoperative healing course, and he asked to return to work on 07/20/2024. I provided him with a letter for this. 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 No new neurological deficits. The patient ambulates well but continues to use the assistance of a cane. I would like to follow up with Suresh again after physical therapy. He should reach back out to our office for a subsequent appointment when this is complete. Meño Harvey MD,PhD [facility] Orders: Orders PT Evaluation and Treatment Today M54.16 - Radiculopathy, lumbar region Coding Level of Care Code Global (08966) Diagnoses Lumbar radiculopathy M54.16
--- OUTSIDE RECORDS SUMMARY | 2024-07-18 01:04 | XMS_ITS ---
Author Organization [facility] Address [address] [place] [address] Care Team Providers Care Network Admin Name Role Phone MI MIRANDA M.D. Primary Care Provider Nichole vailable Billy Castellanos Jr Unavailable [phone] REASON FOR VISIT pathology Encounters Encounter Location Date Provider Diagnosis [facility] [address] [place] [address] 01/23/2024 Billy Castellanos Jr PLAN OF TREATMENT No Information
--- OUTSIDE RECORDS SUMMARY | 2024-07-18 01:04 | XMS_ITS ---
Author Organization [facility] Address [address] [place] [address] Care Team Providers Care Sales And Marketing Engineer Name Role Phone MI MIRANDA M.D. Primary Care Provider Nichole vailable Billy Castellanos Jr Unavailable [phone] REASON FOR VISIT screening Encounters Encounter Location Date Provider Diagnosis [facility] [place] [address] [place] [phone] 01/18/2024 Billy Castellanos Jr Encounter for screening colonoscopy Z12.11 and Colon polyps K63.5 ASSESSMENTS Encounter Date Diagnosis Assessment Notes Treatment Notes Treatment Clinical Notes 01/18/2024 Encounter for screening colonoscopy (ICD-10 - Z12.11) 01/18/2024 Colon polyps (ICD-10 - K63.5) PLAN OF TREATMENT No Information
--- OUTSIDE RECORDS SUMMARY | 2024-07-18 01:04 | XMS_ITS ---
Author Organization [facility] Address [address] [place] [address] Care Team Providers Care Hotel Security Officer Name Role Phone MI MIRANDA M.D. Primary [...] Problem Colon cancer screening (Z12.11) Active confirmed [id number] Problem Encounter for other preprocedural examination (Z01.818) Active confirmed 006073089 Problem Loose stools (R19.5) Active confirmed 616536626 VITAL SIGNS BMI 45.25 kg/m2 12/12/2023 Blood pressure systolic 000 mm Hg 12/12/19 24 Blood pressure diastolic 00 mm Hg 024 Height 5 ft 10 in in 12/12/2023 Temperature 97.5 degrees Fahrenheit 12/12/19 24 Weight 315 lb 6 oz lbs 12/12/2023 Encounters Encounter Location Date Provider Diagnosis [facility] [address] [place] [address] 12/12/2023 Billy Castellanos Jr Colon cancer screening [...]
--- OUTSIDE RECORDS SUMMARY | 2024-07-18 01:05 | XMS_ITS | Patient Health Record ---
Author Organization [facility] Address [address] [place] [address] Care Team Providers Care Inspector General Name Role Phone MI MIRANDA M.D. Primary Care Provider Nichole caleb Castellanos Jr Billy Unavailable [phone] ALLERGIES Allergen (clinical drug ingredient) Drug/Non Drug Allergy documented on EMR Reaction Allergy Type Onset Date Status Dust Mites Unknown Allergy Active seasonal (uncoded) Unknown Allergy A ctive RESULTS Component Value Reference Range Notes Pathology Reviewed date:01/23/2024 08:54:43 AM Interpretation: Performing Lab:[facility], [address] [place] [id number] Notes/Report: REASON FOR REFERRAL No Information MEDICATIONS [...] Problem Colon cancer screening (Z12.11) Active confirmed 439459702 Problem Encounter for other preprocedural examination (Z01.818) Active confirmed 070709819 Problem Loose stools (R19.5) Active confirmed 106250363 VITAL SIGNS Temperature 97.5 degrees Fahrenheit 12/12/2023 Blood pressure diastolic 00 mm Hg 12/12/2023 Height 5 ft 10 in in 12/12/2023 Blood pressure systolic 000 mm Hg 12/12/2023 Weight 315 lb 6 oz lbs 12/12/2023 BMI 45.25 kg/m2 12/12/2023 Encounters Encounter Location Date Provider Diagnosis [facility] [place] [address] [place] [id number] 01/18/2024 Billy Castellanos Jr Encounter for screening colonoscopy Z12.11 and Colon polyps K63.5 [facility] [address] [place] [phone] 11/28/2023 Billy Castellanos Jr [facility] [address] [place] [phone] 12/12/2023 Billy Castellanos Jr Colon cancer screening Z12.11 and Loose stools R19.5 [facility] [address] [place] [phone] 01/23/2024 Billy Castellanos Jr ASSESSMENTS Encounter Date [...] Date [employer] [address] [place] [address] [id number] SUE MOURA Self - patient is the insured MEDICAL (GENERAL) HISTORY Medical History History ICD Code Inflammatory arthritis Lactose intolerance Elevated BMI Surgical History Surgery Date(Month/Year) Cholecystectomy 1992
== END 2024-07-12 10:23 | disposition home or self-care (01) ==
PROVIDERS: PCP Family Medicine; Visit Provider Physician Assistant
DX: M54.16 Radiculopathy, lumbar region (principal)
CPT/HCPCS: 99024

== ENCOUNTER → 2024-07-12 09:46 | Outpatient (BNVA) | payer OTHER, SELFPAY | PROVIDERS: PCP Family Medicine; Visit Provider Physician Assistant ==

== ENCOUNTER 2024-07-23 11:07 | Outpatient (AMB) | payer OTHER, SELFPAY ==
--- OUTSIDE RECORDS SUMMARY | 2024-07-23 11:10 | XMS_ITS ---
Author Organization [facility] Address [address] [place] [address] Care Team Providers Care Electrical Repairer Name Role Phone MI MIRANDA M.D. Primary Care Provider Nichole vailable Billy Castellanos Jr Unavailable REASON FOR VISIT screening Encounters Encounter Location Date Provider Diagnosis [facility] [address] [place] [id number] 01/18/2024 Billy Castellanos Jr Encounter for screening colonoscopy Z12.11 and Colon polyps K63.5 ASSESSMENTS Encounter Date Diagnosis Assessment Notes Treatment Notes Treatment Clinical Notes 01/18/2024 Encounter for screening colonoscopy (ICD-10 - Z12.11) 01/18/2024 Colon polyps (ICD-10 - K63.5) PLAN OF TREATMENT No Information
--- OUTSIDE RECORDS SUMMARY | 2024-07-23 11:10 | XMS_ITS ---
Author Organization [facility] Address [address] [place] [address] Care Team Providers Care Monitoring Engineer Name Role Phone MI MIRANDA M.D. Primary Care Provider Billy Giron Jr Unavailable [phone] ALLERGIES Allergen (clinical drug ingredient) Drug/Non Drug [...] Problem Colon cancer screening (Z12.11) Active confirmed [id number] Problem Encounter for other preprocedural examination (Z01.818) Active confirmed 503202120 Problem Loose stools (R19.5) Active confirmed 329950033 VITAL SIGNS BMI 45.25 kg/m2 12/12/2023 Blood pressure systolic 000 mm Hg 12/12/19 24 Blood pressure diastolic 00 mm Hg 024 Height 5 ft 10 in in 12/12/2023 Temperature 97.5 degrees Fahrenheit 12/12/19 24 Weight 315 lb 6 oz lbs 12/12/2023 Encounters Encounter Location Date Provider Diagnosis [facility] [address] [place] [address] 12/12/2023 Billy Castellanos Jr Colon cancer screening [...]
--- OUTSIDE RECORDS SUMMARY | 2024-07-23 11:10 | XMS_ITS ---
Author Organization [facility] Address [address] [place] [address] Care Team Providers Care Advisory Internship Name Role Phone MI MIRANDA M.D. Primary Care Provider Nichole vailable Billy Castellanos Jr Unavailable [phone] REASON FOR VISIT pathology Encounters Encounter Location Date Provider Diagnosis [facility] [address] [place] [address] 01/23/2024 Billy Castellanos Jr PLAN OF TREATMENT No Information
--- OUTSIDE RECORDS SUMMARY | 2024-07-23 11:11 | XMS_ITS | Patient Health Record ---
Author Organization [facility] Address [address] [place] [address] Care Team Providers Care Glove Printer Name Role Phone MI MIRANDA M.D. Primary Care Provider Nichole caleb Castellanos Jr Billy Unavailable [phone] ALLERGIES Allergen (clinical drug ingredient) Drug/Non Drug Allergy documented on EMR Reaction Allergy Type Onset Date Status Dust Mites Unknown Allergy Active seasonal (uncoded) Unknown Allergy A ctive RESULTS Component Value Reference Range Notes Pathology Reviewed date:01/23/2024 08:54:43 AM Interpretation: Performing Lab:[facility], [address] [place] [phone] Notes/Report: REASON FOR REFERRAL No Information MEDICATIONS [...] Problem Colon cancer screening (Z12.11) Active confirmed 246532251 Problem Encounter for other preprocedural examination (Z01.818) Active confirmed 272934754 Problem Loose stools (R19.5) Active confirmed 398790912 VITAL SIGNS Temperature 97.5 degrees Fahrenheit 12/12/2023 Blood pressure diastolic 00 mm Hg 12/12/2023 Height 5 ft 10 in in 12/12/2023 Blood pressure systolic 000 mm Hg 12/12/2023 Weight 315 lb 6 oz lbs 12/12/2023 BMI 45.25 kg/m2 12/12/2023 Encounters Encounter Location Date Provider Diagnosis [facility] [place] [address] [place] [id number] 01/18/2024 Billy Castellanos Jr Encounter for screening colonoscopy Z12.11 and Colon polyps K63.5 [facility] [address] [place] [phone] 11/28/2023 Billy Castellanos Jr [facility] [address] [place] [phone] 12/12/2023 Billy Castellanos Jr Colon cancer screening Z12.11 and Loose stools R19.5 [facility] [address] [place] [phone] 01/23/2024 Billy Castellanos Jr ASSESSMENTS Encounter Date [...] Date [employer] [address] [place] [address] [id number] SUE MOURA Self - patient is the insured MEDICAL (GENERAL) HISTORY Medical History History ICD Code Inflammatory arthritis Lactose intolerance Elevated BMI Surgical History Surgery Date(Month/Year) Cholecystectomy 1992
--- NOTE | 2024-07-23 11:27 | HO.SPINEOV ---
Intake Visit Reasons: back pain sx 06/07/24 Intake Note: Mr. Anand is here today c/o back pain. Questioned Documents Examiner Required: No Allergies animal dander Allergy (Intermediate, Verified 07/23/24 11:30) Itchy Eyes mite-Dermatophagoides farinae, chau [dust mite - [place]] Allergy (Intermediate, Verified 07/23/24 11:30) Unknown Seasonal Allergies Allergy (Intermediate, Verified 07/23/24 11:30) Itchy Eyes Assessment & Plan Assessment & Plan (1) Lumbar radiculopathy: Code(s): M54.16 - Radiculopathy, lumbar region Category: Medical Plan Mr Anand is back in the office today for a follow up. He had a right extraforaminal exploration at L5-s1 for possible disk herniation which we never found but had tight foraminal stenosis at this level and had partial facetectomy and foraminotomy on June 07. He was doing well for about a month, but then the symptoms came back full force. He is having a severe right L5 radiculopathy going down his leg into his calf with standing walking. He has tried [id number] medications, he went to PT for few weeks but is just getting worse. When he originally came to see us, we were concerned he may ultimately end up needing fusion but we are trying to avoid this as his main symptom was leg pain. Unfortunately it is sounding like the foramen has collapsed back down. He has severe DDD at L5-S1 and moderate to severe at L4-5. I will repeat an lumbar MRI with and without tee 0 and see him back in the office with Dr. Harvey to re-evaluate for possible surgery. Tate Harvey MD, PhD [facility] Orders: Orders MR lumbar spine wo/w con Today M54.16 - Radiculopathy, lumbar region Coding Level of Care Code Global (01626) Diagnoses Lumbar radiculopathy M54.16
== END 2024-07-23 11:57 | disposition home or self-care (01) ==
PROVIDERS: PCP Nurse Practitioner; Visit Provider Physician Assistant
DX: M54.16 Radiculopathy, lumbar region (principal)
CPT/HCPCS: 99024

== ENCOUNTER 2024-07-24 07:49 | Outpatient (AMB) | payer OTHER, SELFPAY ==
--- OUTSIDE RECORDS SUMMARY | 2024-07-24 07:53 | XMS_ITS ---
Author Organization [facility] Address [address] [place] [address] Care Team Providers Care Bowling Pin Setters Installer Name Role Phone MI MIRANDA M.D. Primary Care Provider Nichole vailable Billy Castellanos Jr Unavailable REASON FOR VISIT pathology Encounters Encounter Location Date Provider Diagnosis [facility] [address] [place] [address] 01/23/2024 Billy Castellanos Jr PLAN OF TREATMENT No Information
--- OUTSIDE RECORDS SUMMARY | 2024-07-24 07:53 | XMS_ITS ---
Author Organization [facility] Address [address] [place] [address] Care Team Providers Care Flat Folding Machine Operator Name Role Phone MI MIRANDA M.D. [...] Problem Colon cancer screening (Z12.11) Active confirmed 469848545 Problem Encounter for other preprocedural examination (Z01.818) Active confirmed 581814305 Problem Loose stools (R19.5) Active confirmed 326039700 VITAL SIGNS BMI 45.25 kg/m2 12/12/2023 Blood pressure systolic 000 mm Hg 12/12/19 24 Blood pressure diastolic 00 mm Hg 024 Height 5 ft 10 in in 12/12/2023 Temperature 97.5 degrees Fahrenheit 12/12/19 24 Weight 315 lb 6 oz lbs 12/12/2023 Encounters Encounter Location Date Provider Diagnosis [facility] [address] [place] [address] 12/12/2023 Billy Castellanos Jr Colon cancer screening [...]
--- OUTSIDE RECORDS SUMMARY | 2024-07-24 07:53 | XMS_ITS | Patient Health Record ---
Author Organization [facility] Address [address] [place] [address] Care Team Providers Care Financial Systems Administrator Name Role Phone MI MIRANDA M.D. Primary Care Provider Nichole caleb Castellanos Jr Billy Unavailable [phone] ALLERGIES Allergen (clinical drug ingredient) Drug/Non Drug Allergy documented on EMR Reaction Allergy Type Onset Date Status Dust Mites Unknown Allergy Active seasonal (uncoded) Unknown Allergy A ctive RESULTS Component Value Reference Range Notes Pathology Reviewed date:01/23/2024 08:54:43 AM Interpretation: Performing Lab:[facility], [address] [place] [phone] Notes/Report: REASON FOR REFERRAL No Information MEDICATIONS [...] Problem Colon cancer screening (Z12.11) Active confirmed 117588905 Problem Encounter for other preprocedural examination (Z01.818) Active confirmed 151826800 Problem Loose stools (R19.5) Active confirmed 967040146 VITAL SIGNS Temperature 97.5 degrees Fahrenheit 12/12/2023 Blood pressure diastolic 00 mm Hg 12/12/2023 Height 5 ft 10 in in 12/12/2023 Blood pressure systolic 000 mm Hg 12/12/2023 Weight 315 lb 6 oz lbs 12/12/2023 BMI 45.25 kg/m2 12/12/2023 Encounters Encounter Location Date Provider Diagnosis [facility] [place] [address] [place] [id number] 01/18/2024 Billy Castellanos Jr Encounter for screening colonoscopy Z12.11 and Colon polyps K63.5 [facility] [address] [place] [phone] 11/28/2023 Billy Castellanos Jr [facility] [address] [place] [phone] 12/12/2023 Billy Castellanos Jr Colon cancer screening Z12.11 and Loose stools R19.5 [facility] [address] [place] [phone] 01/23/2024 Billy Castellanos Jr ASSESSMENTS Encounter Date [...] Date [employer] [address] [place] [address] [id number] SUE MOURA Self - patient is the insured MEDICAL (GENERAL) HISTORY Medical History History ICD Code Inflammatory arthritis Lactose intolerance Elevated BMI Surgical History Surgery Date(Month/Year) Cholecystectomy 1992
--- OUTSIDE RECORDS SUMMARY | 2024-07-24 07:53 | XMS_ITS ---
Author Organization [facility] Address [address] [place] [address] Care Team Providers Care Family And Marriage Counsellor Name Role Phone MI MIRANDA M.D. Primary Care Provider Nichole vailable Billy Castellanos Jr Unavailable [phone] REASON FOR VISIT screening Encounters Encounter Location Date Provider Diagnosis [facility] [place] [address] [place] [id number] 01/18/2024 Billy Castellanos Jr Encounter for screening colonoscopy Z12.11 and Colon polyps K63.5 ASSESSMENTS Encounter Date Diagnosis Assessment Notes Treatment Notes Treatment Clinical Notes 01/18/2024 Encounter for screening colonoscopy (ICD-10 - Z12.11) 01/18/2024 Colon polyps (ICD-10 - K63.5) PLAN OF TREATMENT No Information
--- NOTE | 2024-07-24 07:58 | MHC.OFFVIS ---
Vital Signs 07/24/24 08:02 Height 5 ft 10 in Weight 329 lb 5.93 oz BMI 47.3 BP 130/70 Blood Pressure Location Rt brachial Position Sitting Pulse 88 Pulse Source Pulse Oximeter Pulse Oximetry (%) 99 Oxygen Delivery Method Room Air Intake Visit Reasons: RA/NRAxSpa Intake Note: Patient presents for RA/NRAxSpa. Allergies animal dander Allergy (Intermediate, Verified 07/24/24 08:01) Itchy Eyes mite-Dermatophagoides farinae, chau [dust mite - [place]] Allergy (Intermediate, Verified 07/24/24 08:01) Unknown Seasonal Allergies Allergy (Intermediate, Verified 07/24/24 08:01) Itchy Eyes Medication List - Last Reconciled 07/24/24 by Joe Alonso MD cholestyramine-aspartame 4 gram 1 ea PO DAILY copper 2 mg PO DAILY curcumin-phosphatidylcholine 500 mg PO DAILY hydroxychloroquine 400 mg PO DAILY ibuprofen (Advil) 800 mg PO Q8H PRN lisinopril 5 mg PO DAILY methocarbamol 500 mg PO BID omeprazole magnesium (Prilosec OTC) 20 mg PO DAILY PRN ondansetron 4 mg PO Q8H PRN oxycodone 5 mg PO Q6H PRN HPI Comments Details: 53-year-old male with new onset mild seronegative arthritis returns for follow-up. He has been taking hydroxychloroquine 200 mg Twice daily for the last 9 months. Well-tolerated. Per patient his peripheral arthritis is much improved. Now his flare-ups occur about once every 2 weeks and last 24 hours at the most.. His main problem is his low back pain with radiculopathy, he had a partial facetectomy, soon after surgery, symptoms recurred and now they are thinking about a fusion. He is on NSAIDs regularly now for his back pain, however he states before he started hydroxychloroquine that he used to take NSAIDs regularly for his peripheral arthritis and he would still get ongoing flare-ups. Initial history: This is a 52-year-old male who presents for evaluation of migratory joint pain. The condition started approximately January of 2023 when he started having left middle finger pain and stiffness, as well as triggering. This lasted 3-4 days then it migrated to his right middle finger, similar symptoms. Then he would have left ankle pain for a few days then it migraines to his right knee. He was having migratory joint pain for a few months, involving his shoulders, elbows, knees usually only affecting 1 joint until about 1-2 months ago when he started having additive joints. Most recently he was having bilateral middle finger pain. He did not notice any swelling. States that he had sciatica about 20 years ago that was treated with rest and anti-inflammatories, denies ever doing chiropractor manipulation, physical therapy or injections. Stated that for the last month or so has been having almost persistent right lower back, right buttock pain radiating down his right lower extremity all the way the top of his right foot. He states that those symptoms can come on randomly, they are not particularly better or worse when he wakes up or during activity. Patient takes ibuprofen 800 mg Twice daily which helps significantly. He denies any rashes. Denies any fevers or weight loss. Denies any history suggestive of uveitis. 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 He mentions that his mother had ankylosing spondylitis and arthritis of her back. She required surgery for her back. States that she was on gabapentin. He does not call whether she was on DMARDs. [facility] Medical History Tubular adenoma of colon Personal history of nicotine dependence GERD (gastroesophageal reflux disease) Hx of fracture of skull (~1975) Lactose intolerance Arthritis Pain in joint, multiple sites Morbid obesity Surgical History History of lumbar discectomy History of colonoscopy History of wisdom tooth extraction History of cholecystectomy (~1994) Family History Maternal Grandmother Dementia Mother Osteoarthritis Ankylosing spondylitis Aortic aneurysm Maternal Grandfather Lung tumor Father Pancreatic cancer Social History Household Members: None Housing: Condominium Are you a primary healthcare recruiter to a significant other at home: No Do you presently have visiting nurse or other home services: No Alcohol intake: current Alcohol intake frequency: holidays/special occasions only Patient Tobacco Use Status: Former Tobacco user Tobacco use type: Cigarette Years Smoked: (onset 18yo, 1-2ppd x 21yrs, 30PYH - quit 2009) Second Hand Smoke Exposure: No service: No Current occupational status: employed 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 [employer] [facility] [place] [employer] [facility] [place] Reports back pain, Reports arthralgias, Denies joint swelling, Reports radiating pain into limb and Reports stiffness Physical Exam Vital Signs: Last Vital Signs Pulse 88 07/24/24 08:02 BP 130/70 07/24/24 08:02 Pulse Ox 99 07/24/24 08:02 Oxygen Delivery Method Room Air 07/24/24 08:02 BMI result Body Mass Index 0.6 Const General: cooperative, healthy appearing and comfortable Nutritional Appearance: obese morbidly obese Orientation/consciousness: patient oriented x3 Limitations: ambulation with cane HEENT Head: Yes normocephalic and Yes atraumatic Mouth: moist mucous membranes Resp Effort & Inspection: normal respiratory effort and able to speak in complete sentences Skin General skin exam: no rashes or lesions noted Neuro General: patient oriented x3 Extrem Other: Walks with a cane There is no active peripheral synovitis today Assessment & Plan Assessment & Plan (1) Inflammatory arthritis: Comment: dx 10/2023 HCQ started 10/2023 effective Code(s): M19.90 - Unspecified osteoarthritis, unspecified site Category: Medical Plan: This is a 53-year-old male who presents for evaluation of migratory and additive joint pain and stiffness. He has been on hydroxychloroquine 200 mg Twice daily for the last 9 months with improvement. Now his flare-ups are few and far in between and do not last as long. Continue hydroxychloroquine 200 mg Twice daily Labs before next visit 6 months (2) Long-term use of hydroxychloroquine: Code(s): Z79.899 - Other intermediate frame tender (current) drug therapy Category: Medical Plan: Discussed risk of retinopathy associated with hydroxychloroquine. He was evaluated by an post hole digger this month and will go back for visual field testing. States that he will ask for their notes to be sent over to our office Plan I spent 27 minutes reviewing patient's chart, evaluating patient, ordering diagnostic workup, counseling patient and documenting in the chart Orders: Orders Complete Blood Count Auto Diff 6 Months - Unspecified osteoarthritis, unspecified site, Z79.899 - Other intermediate frame tender (current) drug therapy Comprehensive Met. Panel 6 Months M19.90 - Unspecified osteoarthritis, unspecified site, Z79.899 - Other fpc (current) drug therapy C Reactive Protein 6 Months M19. - Unspecified osteoarthritis, unspecified site, Z79.899 - Other fpc (current) drug therapy Erythrocyte Sedimentation Rate 6 Months M19. - Unspecified osteoarthritis, unspecified site, Z79.899 - Other intermediate frame tender (current) drug therapy Coding Level of Care Code Est Pt Level 4 (35558) Diagnoses Inflammatory arthritis Long-term use of hydroxychloroquine Z79.899
[2024-07-24 08:02] VITALS: BP 130/70; PULSE 88; O2SAT 99; BMI 47.3
== END 2024-07-24 08:18 | disposition home or self-care (01) ==
PROVIDERS: Visit Provider Student in an Organized Health Care Education/Training Program
DX: M19.90 Unspecified osteoarthritis, unspecified site (principal); Z79.899 Other long term (current) drug therapy
CPT/HCPCS: 99214

== ENCOUNTER 2024-07-25 10:45 | Outpatient (REF) | payer OTHER, SELFPAY ==
--- NOTE | ~2024-07-25 | MR_ITS ---
EXAMINATION: MR LUMBAR SPINE WITHOUT AND WITH CONTRAST CLINICAL INFORMATION: Radiculopathy, lumbar region COMPARISON: MR lumbar spine on 04/16/2024 TECHNIQUE: MRI of the lumbar spine was obtained using routine sequences with and without contrast. Intravenous contrast: Gadavist 10 mL FINDINGS: Mild retrolisthesis at L5-S1. Redemonstration of T1 and T2 hypointense lesion involving the L3 inferior endplate with associated STIR hyperintensity and enhancement likely representing acute to subacute Schmorl's node. No other sites of abnormal bone marrow signal. The vertebral body heights are preserved. Multilevel disc desiccation with moderate disc height loss at L5-S1. Type II endplate changes at L3-4, L4-5, and L5-S1. Multilevel endplate osteophytosis. The visualized spinal cord is normal in caliber. There is edema and enhancement of the right exiting L5 nerve roots compatible with compressive neuritis. No other site of abnormal cord signal or enhancement. The conus medullaris terminates at L1-2. T12-L1: No significant spinal canal or neural foraminal narrowing. L1-2: Shallow disc bulge with superimposed central extrusion migrating superiorly, unchanged. No significant spinal canal or neural foraminal narrowing. L2-3: Shallow disc bulge with tiny central disc extrusion migrating superiorly, unchanged. No significant spinal canal stenosis. Mild bilateral neural foraminal narrowing, unchanged. L3-4: Shallow disc bulge with superimposed annular fissure. Bilateral facet arthrosis. No significant spinal canal stenosis. Moderate left greater than right neural foraminal narrowing with the disc abutting the exiting L3 nerve roots bilaterally, unchanged. L4-5: Shallow disc bulge with superimposed annular fissure. Bilateral facet arthrosis. No significant spinal canal stenosis. Moderate left greater than right neural foraminal narrowing with mass effect on the exiting L4 nerve roots bilaterally, unchanged. L5-S1: Diffuse disc bulge with superimposed right subarticular disc protrusion. Bilateral facet arthrosis. There is new extensive edema and enhancement surrounding the right facet joint. No significant spinal canal stenosis. Severe right and mild left neural foraminal narrowing with impingement of the right exiting L5 nerve roots. The right exiting L5 nerve roots continue to demonstrate edema and enhancement. The paravertebral soft tissues are unremarkable. MR/MR lumbar spine wo/w con IMPRESSION: -Multilevel lumbar spondylosis as described above without significant spinal canal stenosis. -Neural foraminal narrowing is worst and severe on the right at L5-S1 with impingement of the right exiting L5 nerve roots. There is edema and enhancement of the right exiting L5 nerve roots compatible with compressive neuritis. Additionally, there is new extensive edema and enhancement surrounding the right facet joint at this level compatible with reactive changes. Electronically signed by: Keila Lance MD 07/25/2024 01:37 PM ARMAAN QUICK
--- OUTSIDE RECORDS SUMMARY | 2024-07-25 10:48 | XMS_ITS | Patient Health Record ---
Author Organization [facility] Address [address] [place] [address] Care Team Providers Care Social Staff Worker Name Role Phone MI MIRANDA M.D. Primary Care Provider Nichole caleb Castellanos Jr Billy Unavailable [phone] ALLERGIES Allergen (clinical drug ingredient) Drug/Non Drug Allergy documented on EMR Reaction Allergy Type Onset Date Status Dust Mites Unknown Allergy Active seasonal (uncoded) Unknown Allergy A ctive RESULTS Component Value Reference Range Notes Pathology Reviewed date:01/23/2024 08:54:43 AM Interpretation: Performing Lab:[facility], [address] [place] [id number] Notes/Report: REASON FOR REFERRAL No Information MEDICATIONS [...] Problem Colon cancer screening (Z12.11) Active confirmed [id number] Problem Encounter for other preprocedural examination (Z01.818) Active confirmed 340298281 Problem Loose stools (R19.5) Active confirmed 543021663 VITAL SIGNS Temperature 97.5 degrees Fahrenheit 12/12/2023 Blood pressure diastolic 00 mm Hg 12/12/2023 Height 5 ft 10 in in 12/12/2023 Blood pressure systolic 000 mm Hg 12/12/2023 Weight 315 lb 6 oz lbs 12/12/2023 BMI 45.25 kg/m2 12/12/2023 Encounters Encounter Location Date Provider Diagnosis [facility] [address] [place] [id number] 01/18/2024 Billy Castellanos Jr Encounter for screening colonoscopy Z12.11 and Colon polyps K63.5 [facility] [address] [place] [phone] 11/28/2023 Billy Castellanos Jr [facility] [address] [place] [phone] 12/12/2023 Billy Castellanos Jr Colon cancer screening Z12.11 and Loose stools R19.5 [facility] [address] [place] [phone] 01/23/2024 Billy Castellanos Jr ASSESSMENTS Encounter Date [...] Date [employer] [address] [place] [address] [id number] SUE MOURA Self - patient is the insured MEDICAL (GENERAL) HISTORY Medical History History ICD Code Inflammatory arthritis Lactose intolerance Elevated BMI Surgical History Surgery Date(Month/Year) Cholecystectomy 1992
--- OUTSIDE RECORDS SUMMARY | 2024-07-25 10:48 | XMS_ITS ---
Author Organization [facility] Address [address] [place] [address] Care Team Providers Care Thread Spinner Name Role Phone MI MIRANDA M.D. Primary Care Provider Nichole vailable Billy Castellanos Jr Unavailable [phone] REASON FOR VISIT screening Encounters Encounter Location Date Provider Diagnosis [facility] Out[facility] [address] [place] [id number] 01/18/2024 Billy Castellanos Jr Encounter for screening colonoscopy Z12.11 and Colon polyps K63.5 ASSESSMENTS Encounter Date Diagnosis Assessment Notes Treatment Notes Treatment Clinical Notes 01/18/2024 Encounter for screening colonoscopy (ICD-10 - Z12.11) 01/18/2024 Colon polyps (ICD-10 - K63.5) PLAN OF TREATMENT No Information
--- OUTSIDE RECORDS SUMMARY | 2024-07-25 10:48 | XMS_ITS ---
Author Organization [facility] Address [address] [place] [address] Care Team Providers Care Railroad Design Consultant Name Role Phone MI MIRANDA M.D. Primary [...] Problem Colon cancer screening (Z12.11) Active confirmed [id number] Problem Encounter for other preprocedural examination (Z01.818) Active confirmed 988465599 Problem Loose stools (R19.5) Active confirmed 558513371 VITAL SIGNS BMI 45.25 kg/m2 12/12/2023 Blood pressure systolic 000 mm Hg 12/12/19 24 Blood pressure diastolic 00 mm Hg 024 Height 5 ft 10 in in 12/12/2023 Temperature 97.5 degrees Fahrenheit 12/12/19 24 Weight 315 lb 6 oz lbs 12/12/2023 Encounters Encounter Location Date Provider Diagnosis [facility] [address] [place] [address] 12/12/2023 Billy Castellanos Jr Colon cancer screening [...]
--- OUTSIDE RECORDS SUMMARY | 2024-07-25 10:48 | XMS_ITS ---
Author Organization [facility] Address [address] [place] [address] Care Team Providers Care Supervisor Landscape Name Role Phone MI MIRANDA M.D. Primary Care Provider Nichole vailable Billy Castellanos Jr Unavailable [phone] REASON FOR VISIT pathology Encounters Encounter Location Date Provider Diagnosis [facility] [address] [place] [address] 01/23/2024 Billy Castellanos Jr PLAN OF TREATMENT No Information
[2024-07-25] MEDS: gadobutroL 10 ML VIAL IVPUSH (12:14)
== END 2024-07-25 10:46 | disposition home or self-care (01) ==
LOC: HO.MRI 10:45
PROVIDERS: PCP Nurse Practitioner; Visit Provider Physician Assistant
DX: M54.16 Radiculopathy, lumbar region (principal)
CPT/HCPCS: 72158; A9585

== ENCOUNTER 2024-08-17 11:24 | Outpatient (AMB) | payer OTHER, SELFPAY ==
--- OUTSIDE RECORDS SUMMARY | 2024-08-17 11:30 | XMS_ITS ---
Author Organization [facility] Address [address] [place] [address] Care Team Providers Care Building Equipment Operator Name Role Phone MI MIRANDA M.D. Primary Care Provider Nichole vailable Billy Castellanos Jr Unavailable REASON FOR VISIT pathology Encounters Encounter Location Date Provider Diagnosis [facility] [address] [place] [address] 01/23/2024 Billy Castellanos Jr PLAN OF TREATMENT No Information
--- OUTSIDE RECORDS SUMMARY | 2024-08-17 11:30 | XMS_ITS ---
Author Organization [facility] Address [address] [place] [address] Care Team Providers Care Geriatric Assistant Name Role Phone MI MIRANDA M.D. Primary [...] Problem Colon cancer screening (Z12.11) Active confirmed [id number] Problem Encounter for other preprocedural examination (Z01.818) Active confirmed 287859442 Problem Loose stools (R19.5) Active confirmed 837781108 VITAL SIGNS BMI 45.25 kg/m2 12/12/2023 Blood pressure systolic 000 mm Hg 12/12/19 24 Blood pressure diastolic 00 mm Hg 024 Height 5 ft 10 in in 12/12/2023 Temperature 97.5 degrees Fahrenheit 12/12/19 24 Weight 315 lb 6 oz lbs 12/12/2023 Encounters Encounter Location Date Provider Diagnosis [facility] [address] [place] [address] 12/12/2023 Billy Castellanos Jr Colon cancer screening [...] General Examination GENERAL APPEARANCE: in no [place] distress HEAD: normocephalic EYES: sclera non-icteric NECK/THYROID: [...]
--- OUTSIDE RECORDS SUMMARY | 2024-08-17 11:30 | XMS_ITS ---
Author Organization [facility] Address [address] [place] [address] Care Team Providers Care Green Ware Caster Name Role Phone MI MIRANDA M.D. Primary Care Provider Nichole vailable Billy Castellanos Jr Unavailable REASON FOR VISIT screening Encounters Encounter Location Date Provider Diagnosis [facility] [place] [address] [place] [id number] 01/18/2024 Billy Castellanos Jr Encounter for screening colonoscopy Z12.11 and Colon polyps K63.5 ASSESSMENTS Encounter Date Diagnosis Assessment Notes Treatment Notes Treatment Clinical Notes 01/18/2024 Encounter for screening colonoscopy (ICD-10 - Z12.11) 01/18/2024 Colon polyps (ICD-10 - K63.5) PLAN OF TREATMENT No Information
--- OUTSIDE RECORDS SUMMARY | 2024-08-17 11:30 | XMS_ITS | Patient Health Record ---
Author Organization [facility] Address [address] [place] [address] Care Team Providers Care Cellular Phone Repairer Name Role Phone MI MIRANDA M.D. Primary Care Provider Nichole caleb Castellanos Jr Billy Unavailable [phone] ALLERGIES Allergen (clinical drug ingredient) Drug/Non Drug Allergy documented on EMR Reaction Allergy Type Onset Date Status Dust Mites Unknown Allergy Active seasonal (uncoded) Unknown Allergy A ctive RESULTS Component Value Reference Range Notes Pathology Reviewed date:01/23/2024 08:54:43 AM Interpretation: Performing Lab:[facility], [address] [place] [id number] Notes/Report: REASON FOR REFERRAL No Information MEDICATIONS [...] Problem Colon cancer screening (Z12.11) Active confirmed [id number] Problem Encounter for other preprocedural examination (Z01.818) Active confirmed 950999525 Problem Loose stools (R19.5) Active confirmed 944681791 VITAL SIGNS Temperature 97.5 degrees Fahrenheit 12/12/2023 Blood pressure diastolic 00 mm Hg 12/12/2023 Height 5 ft 10 in in 12/12/2023 Blood pressure systolic 000 mm Hg 12/12/2023 Weight 315 lb 6 oz lbs 12/12/2023 BMI 45.25 kg/m2 12/12/2023 Encounters Encounter Location Date Provider Diagnosis [facility] Outpatient [address] [place] [id number] 01/18/2024 Billy Castellanos Jr Encounter for screening colonoscopy Z12.11 and Colon polyps K63.5 [facility] [address] [place] [phone] 11/28/2023 Billy Castellanos Jr [facility] [address] [place] [phone] 12/12/2023 Billy Castellanos Jr Colon cancer screening Z12.11 and Loose stools R19.5 [facility] [address] [place] [phone] 01/23/2024 Billy Castellanos Jr ASSESSMENTS Encounter Date [...] Date [employer] [address] [place] [address] [id number] SUE MOURA Self - patient is the insured MEDICAL (GENERAL) HISTORY Medical History History ICD Code Inflammatory arthritis Lactose intolerance Elevated BMI Surgical History Surgery Date(Month/Year) Cholecystectomy 1992
--- NOTE | 2024-08-17 12:17 | HO.SPINEOV ---
Intake Visit Reasons: MRI f/up Intake Note: Mr. Anand is here today to discus the results of his MRI. Seat Nailer Required: No Allergies animal dander Allergy (Intermediate, Verified 07/24/24 08:01) Itchy Eyes mite-Dermatophagoides farinae, chau [dust mite - [place]] Allergy (Intermediate, Verified 07/24/24 08:01) Unknown Seasonal Allergies Allergy (Intermediate, Verified 07/24/24 08:01) Itchy Eyes Assessment & Plan Assessment & Plan (1) Lumbar radiculopathy: Code(s): M54.16 - Radiculopathy, lumbar region Category: Medical Plan Dear colleague On 08/16/2024, I saw for follow-up Suresh Anand. He is status post L5-S1 diskectomy, extraforaminal approach for right lumbar radiculopathy. This surgery only helpful 1 month after the pain returned in all severity. The pain radiates in an L5 dermatome. A repeat MRI shows ongoing compression, most likely from a bone spur as it was not able to retrieve any disc fragments during surgery. He is debilitated and can not work. I offered him a right L5-S1 facetectomy with posterior instrumentation to provide maximum room for the nerve root. He will see pain management 1st before we see the doing this. He will contact my office to let us know if pain management have any other options then my surgery. I spent 20 minutes in his consult to discuss surgical options and plan of care. Janes Harvey MD, PhD Spine Fellowship Trained Neurosurgeon Director, [facility] Coding Level of Care Code Est Pt Level 3 (70596) Diagnoses Lumbar radiculopathy M54.16
== END 2024-08-17 12:36 | disposition home or self-care (01) ==
PROVIDERS: PCP Nurse Practitioner; Visit Provider Neurological Surgery
DX: M54.16 Radiculopathy, lumbar region (principal)
CPT/HCPCS: 99024

== ENCOUNTER → 2024-08-17 11:24 | Outpatient (BNVA) | payer OTHER, SELFPAY | PROVIDERS: PCP Nurse Practitioner; Visit Provider Neurological Surgery ==

== ENCOUNTER 2024-08-21 09:47 | Outpatient (AMB) | payer OTHER, SELFPAY ==
--- NOTE | 2024-08-21 09:58 | MHC.OFFVIS ---
Vital Signs 08/21/24 10:03 Height 5 ft 10 in Weight 333 lb 6 oz BMI 47.8 BP 143/89 H Blood Pressure Location Rt brachial Position Sitting Pulse 96 Pulse Source Pulse Oximeter Intake Visit Reasons: Lumbar Spondylosis Intake Note: Pain today 10/15 Crane Oiler Required: No Accompanied by: Self / Same As Patient Allergies animal dander Allergy (Intermediate, Verified 08/21/24 10:03) Itchy Eyes mite-Dermatophagoides farinae, chau [dust mite - [place]] Allergy (Intermediate, Verified 08/21/24 10:03) Unknown Seasonal Allergies Allergy (Intermediate, Verified 08/21/24 10:03) Itchy Eyes HPI HPI Lumbar Spondylosis: Details: Patient is a pleasant 53 years old male with history of chronic low back pain s/p L5-S1 diskectomy, morbid obesity, arthritis, presents today for initial evaluation for lower back pain with right sided radiculopathy. Denies any recent trauma, injury or falls. Back pain is axial, discogenic and also radiates into his right buttock and lateral calf with tingling in his big toe. Pain is present with activity and less severe with rest or walking. He was evaluated by [facility] [place] [place] [facility] and offered a right L5-S1 facetectomy. Patient is interested in therapeutic DANICA injection prior to consideration of additional back surgery. He is currently active with PT and home exercise and has tried oral medications, including opioids, muscle relaxants, prednisone, NSAIDs, gabapentin and Cymbalta for symptomatic relief with continued pain and decreased functioning. Pain affects his daily activities and functioning, mood, sleep, social interactions and quality of life. 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 He is currently on medical leave due to back pain. Denies any fever or chills, abdominal or groin pain, weakness, foot drop, bladder or bowel dysfunction or saddle anesthesia. Oswestry Low Back Pain Disability Score=21 (moderate disability) [facility] [place] [place] [facility] 08/17/24 Dr. Harvey: On 08/16/2024, I saw for follow-up Suresh Anand. He is status post L5-S1 diskectomy, extraforaminal approach for right lumbar radiculopathy. This surgery only helpful 1 month after the pain returned in all severity. The pain radiates in an L5 dermatome. A repeat MRI shows ongoing compression, most likely from a bone spur as it was not able to retrieve any disc fragments during surgery. He is debilitated and can not work. I offered him a right L5-S1 facetectomy with posterior instrumentation to provide maximum room for the nerve root. He will see pain management 1st before we see the doing this. He will contact my office to let us know if pain management have any other options then my surgery. Location: Lower back radiates down into right leg posteriorly Duration: Chronic pain, worsening since January 2024 Characteristics of symptom or complaint: Sharp, stabbing, burning, tightness, pressure, tingling, radiating Aggravating or associated factors: Standing, bending, ROM, squatting, movements, lifting Relieving factors: PT, walking, gabapentin, oxycodone, Cymbalata, diclofenac, methocarbamol Treatment: Active PTx9, chiropractic, acupuncture, TENS unit, MRI, Neurosurgery eval [facility] Medical History Tubular adenoma of colon Personal history of nicotine dependence GERD (gastroesophageal reflux disease) Hx of fracture of skull (~1975) Lactose intolerance Arthritis Pain in joint, multiple sites Morbid obesity Surgical History History of lumbar discectomy History of colonoscopy History of wisdom tooth extraction History of cholecystectomy (~1994) Family History Maternal Grandmother Dementia Mother Osteoarthritis Ankylosing spondylitis Aortic aneurysm Maternal Grandfather Lung tumor Father Pancreatic cancer Social History Household Members: None Housing: Condominium Are you a primary animal caretaker to a significant other at home: No Do you presently have visiting nurse or other home services: No Alcohol intake: current Alcohol intake frequency: holidays/special occasions only Patient Tobacco Use Status: Former Tobacco user Tobacco use type: Cigarette Years Smoked: (onset 18yo, 1-2ppd x 21yrs, 30PYH - quit 2009) Second Hand Smoke Exposure: No service: No Current occupational status: employed 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 No acute distress. Alert and oriented. Mood and affect appropriate. Follows and participates in conversation appropriately. Respiratory effort is unlabored. No cough. Able to transition from sit to stand unassisted. Ambulates with bilaterally normal heel strike and toe off. General: Yes no CVA tenderness Back/Spine/Pelvis Other: Patient is able to walk and stand on heels and tip toes with significant difficulties demonstrating good motor tone. Mild limping, non-antalgic gait. Can flex forward to 65-70 degrees and extend to 5-10 degrees before experiencing lumbar pain. Demonstrates 5/5 strength of quadriceps bilaterally as well as flexion/dorsiflexion of bilateral feet against resistance. 2+ pedal pulses bilaterally. Straight leg rise with dorsiflexion positive on the right. +1 patellar and achilles reflexes bilaterally. Facet loading test positive bilaterally. René sign, Bernard?s and Stinchfield tests are positive on the right. No groin pain with I/E hip rotations. Valsalva maneuver is negative. Back: no CVA tenderness Cervical Spine: cervical ROM normal, Cervical spine tenderness and No step off deformity Thoracic/Lumbar Spine: thoracic and lumbar spine normal to inspection, Thoracic/lumbar spine scar(s), Lasegue's sign positive on the right and diffuse, pain with thoraco-lumbar ROM, paraspinal muscle tenderness on the right greater than left, thoraco-lumbar ROM limited, No thoracic spinal tenderness and lumbar spinal tenderness (L4-S1) Pelvis: buttock tenderness on the right and sciatic notch tenderness on the right Sacroiliac joints: on the right tender to palpation and on the left nontender Extrem General: Yes capillary refill normal, Yes no clubbing, cyanosis or edema and Yes no calf tenderness Results Reviewed Results Reviewed: MR LUMBAR SPINE WITHOUT AND WITH CONTRAST 07/25/24 CLINICAL INFORMATION: Radiculopathy, lumbar region COMPARISON: MR lumbar spine on 04/16/2024 TECHNIQUE: MRI of the lumbar spine was obtained using routine sequences with and without contrast. Intravenous contrast: Gadavist 10 mL FINDINGS: Mild retrolisthesis at L5-S1. Redemonstration of T1 and T2 hypointense lesion involving the L3 inferior endplate with associated STIR hyperintensity and enhancement likely representing acute to subacute Schmorl's node. No other sites of abnormal bone marrow signal. The vertebral body heights are preserved. Multilevel disc desiccation with moderate disc height loss at L5-S1. Type II endplate changes at L3-4, L4-5, and L5-S1. Multilevel endplate osteophytosis. The visualized spinal cord is normal in caliber. There is edema and enhancement of the right exiting L5 nerve roots compatible with compressive neuritis. No other site of abnormal cord signal or enhancement. The conus medullaris terminates at L1-2. T12-L1: No significant spinal canal or neural foraminal narrowing. L1-2: Shallow disc bulge with superimposed central extrusion migrating superiorly, unchanged. No significant spinal canal or neural foraminal narrowing. L2-3: Shallow disc bulge with tiny central disc extrusion migrating superiorly, unchanged. No significant spinal canal stenosis. Mild bilateral neural foraminal narrowing, unchanged. L3-4: Shallow disc bulge with superimposed annular fissure. Bilateral facet arthrosis. No significant spinal canal stenosis. Moderate left greater than right neural foraminal narrowing with the disc abutting the exiting L3 nerve roots bilaterally, unchanged. L4-5: Shallow disc bulge with superimposed annular fissure. Bilateral facet arthrosis. No significant spinal canal stenosis. Moderate left greater than right neural foraminal narrowing with mass effect on the exiting L4 nerve roots bilaterally, unchanged. L5-S1: Diffuse disc bulge with superimposed right subarticular disc protrusion. Bilateral facet arthrosis. There is new extensive edema and enhancement surrounding the right facet joint. No significant spinal canal stenosis. Severe right and mild left neural foraminal narrowing with impingement of the right exiting L5 nerve roots. The right exiting L5 nerve roots continue to demonstrate edema and enhancement. The paravertebral soft tissues are unremarkable. IMPRESSION: -Multilevel lumbar spondylosis as described above without significant spinal canal stenosis. -Neural foraminal narrowing is worst and severe on the right at L5-S1 with impingement of the right exiting L5 nerve roots. There is edema and enhancement of the right exiting L5 nerve roots compatible with compressive neuritis. Additionally, there is new extensive edema and enhancement surrounding the right facet joint at this level compatible with reactive changes. Assessment & Plan Assessment & Plan (1) Lumbar radiculopathy: Code(s): M54.16 - Radiculopathy, lumbar region Category: Medical (2) Lumbar degenerative disc disease: Code(s): M51.369 - Other intervertebral disc degeneration, lumbar region without mention of lumbar back pain or lower extremity pain Category: Medical (3) Lumbosacral spondylosis: Code(s): M47.817 - Spondylosis without myelopathy or radiculopathy, lumbosacral region Category: Medical (4) Neuroforaminal stenosis of lumbosacral spine: Code(s): M48.07 - Spinal stenosis, lumbosacral region Category: Medical (5) Morbid obesity with BMI of 45.0-49.9, adult: Code(s): E66.01 - Morbid (severe) obesity due to excess calories; Z68.42 - Body mass index [BMI] 45.0-49.9, adult Category: Medical Plan Discussed treatment options for both his axial low back as well as radicular and discogenic low back pain, diagnostic versus therapeutic injections, neuromodulation with Sprint PNS and SCS trials vs implant, RFA and Intracept BVN ablation procedures. Informational brochures provided to patient today. Most recent lumbar spine MRI was reviewed with patient. Patient is interested to undergo right L5-S1 TFESI with local and fluoroscopy for right-sided radiculopathy as initial steps. Expectations, risks and benefits were reviewed. Patient is aware he will be contacted to schedule this procedure. Patient is aware of hyperglycemic effects of steroids. Patient is encouraged daily physical activity, continue PT and home exercise program, weight loss, adequate hydration, good posture and activity modifications as needed. He is also interested to look into CBT therapy for chronic pain syndrome due to arthritis. All questions were answered and the patient is in agreement of plan. Follow-up after injections and sooner as needed. Coding Level of Care Code New Pt Level 4 (64755) Complex EM visit Add On G2211 Diagnoses Lumbar radiculopathy M54.16 Lumbar degenerative disc disease M51.369 Lumbosacral spondylosis M47.817 Neuroforaminal stenosis of lumbosacral spine M48.07 Morbid obesity with BMI of 45.0-49.9, adult E66.01; Z68.42
[2024-08-21 10:03] VITALS: BP 143/89; PULSE 96; BMI 47.8
--- OUTSIDE RECORDS SUMMARY | 2024-08-21 10:54 | XMS_ITS ---
Author Organization [facility] Address [address] [place] [address] Care Team Providers Care Safe Deposit Attendant Name Role Phone MI MIRANDA M.D. Primary Care Provider Nichole vailable Billy Castellanos Jr Unavailable [phone] REASON FOR VISIT screening Encounters Encounter Location Date Provider Diagnosis [facility] [place] Out[place] [address] [place] [address] [id number] 01/18/2024 Billy Castellanos Jr Encounter for screening colonoscopy Z12.11 and Colon polyps K63.5 ASSESSMENTS Encounter Date Diagnosis Assessment Notes Treatment Notes Treatment Clinical Notes 01/18/2024 Encounter for screening colonoscopy (ICD-10 - Z12.11) 01/18/2024 Colon polyps (ICD-10 - K63.5) PLAN OF TREATMENT No Information
--- OUTSIDE RECORDS SUMMARY | 2024-08-21 10:54 | XMS_ITS ---
Author Organization [facility] Address [address] [place] [address] Care Team Providers Care Cigar Brander Name Role Phone MI MIRANDA M.D. Primary Care Provider Nichole vailable Billy Castellanos Jr Unavailable REASON FOR VISIT pathology Encounters Encounter Location Date Provider Diagnosis [facility] [address] [place] [address] 01/23/2024 Billy Castellanos Jr PLAN OF TREATMENT No Information
--- OUTSIDE RECORDS SUMMARY | 2024-08-21 10:55 | XMS_ITS ---
Author Organization [facility] Address [address] [place] [address] Care Team Providers Care Printing Plate Clerk Name Role Phone MI MIRANDA M.D. Primary [...] Problem Colon cancer screening (Z12.11) Active confirmed [id number] Problem Encounter for other preprocedural examination (Z01.818) Active confirmed 031717843 Problem Loose stools (R19.5) Active confirmed 526648694 VITAL SIGNS BMI 45.25 kg/m2 12/12/2023 Blood pressure systolic 000 mm Hg 12/12/19 24 Blood pressure diastolic 00 mm Hg 024 Height 5 ft 10 in in 12/12/2023 Temperature 97.5 degrees Fahrenheit 12/12/19 24 Weight 315 lb 6 oz lbs 12/12/2023 Encounters Encounter Location Date Provider Diagnosis [facility] [address] [place] [address] 12/12/2023 Billy Castellanos Jr Colon cancer screening [...] General Examination GENERAL APPEARANCE: in no ac ewiiaapaayp distress HEAD: normocephalic EYES: sclera non-icteric NECK/THYROID: [...]
--- OUTSIDE RECORDS SUMMARY | 2024-08-21 10:55 | XMS_ITS | Patient Health Record ---
Author Organization [facility] Address [address] [place] [address] Care Team Providers Care Leaf Sucker Operator Name Role Phone MI MIRANDA M.D. Primary Care Provider Nichole caleb Castellanos Jr Billy Unavailable [phone] ALLERGIES Allergen (clinical drug ingredient) Drug/Non Drug Allergy documented on EMR Reaction Allergy Type Onset Date Status Dust Mites Unknown Allergy Active seasonal (uncoded) Unknown Allergy A ctive RESULTS Component Value Reference Range Notes Pathology Reviewed date:01/23/2024 08:54:43 AM Interpretation: Performing Lab:[facility], [address] [place] [id number] Notes/Report: REASON FOR REFERRAL No Information MEDICATIONS [...] Problem Colon cancer screening (Z12.11) Active confirmed [id number] Problem Encounter for other preprocedural examination (Z01.818) Active confirmed 467095763 Problem Loose stools (R19.5) Active confirmed 823931565 VITAL SIGNS Temperature 97.5 degrees Fahrenheit 12/12/2023 Blood pressure diastolic 00 mm Hg 12/12/2023 Height 5 ft 10 in in 12/12/2023 Blood pressure systolic 000 mm Hg 12/12/2023 Weight 315 lb 6 oz lbs 12/12/2023 BMI 45.25 kg/m2 12/12/2023 Encounters Encounter Location Date Provider Diagnosis [facility] [place] [facility] [address] [place] [id number] 01/18/2024 Billy Castellanos Jr Encounter for screening colonoscopy Z12.11 and Colon polyps K63.5 [facility] [address] [place] [phone] 11/28/2023 Billy Castellanos Jr [facility] [address] [place] [phone] 12/12/2023 Billy Castellanos Jr Colon cancer screening Z12.11 and Loose stools R19.5 [facility] [address] [place] [phone] 01/23/2024 Billy Castellanos Jr ASSESSMENTS Encounter Date [...] Date [employer] [address] [place] [address] [id number] SUE MOURA Self - patient is the insured MEDICAL (GENERAL) HISTORY Medical History History ICD Code Inflammatory arthritis Lactose intolerance Elevated BMI Surgical History Surgery Date(Month/Year) Cholecystectomy 1992
== END 2024-08-21 10:43 | disposition home or self-care (01) ==
PROVIDERS: PCP Nurse Practitioner; Referring Provider Nurse Practitioner; Visit Provider Nurse Practitioner Family
DX: M54.16 Radiculopathy, lumbar region (principal); M51.369 Other intervertebral disc degeneration, lumbar region without mention of lumbar back pain or lower extremity pain; M47.817 Spondylosis without myelopathy or radiculopathy, lumbosacral region; M48.07 Spinal stenosis, lumbosacral region; E66.01 Morbid (severe) obesity due to excess calories; Z68.42 Body mass index [BMI] 45.0-49.9, adult
CPT/HCPCS: 99204

== ENCOUNTER 2024-09-11 06:15 | Outpatient (REF) | payer OTHER, SELFPAY ==
--- NOTE | ~2024-09-11 | FL_ITS ---
EXAMINATION: FL GUIDANCE ONLY HISTORY: M54.16 - Radiculopathy, lumbar region COMPARISON: None available. TECHNIQUE: Fluoroscopy time: 0.6 minutes. Cumulative Dose: 15.6 mGy. DAP: 0.312 mGym2 Images: 2. FINDINGS: Images demonstrate a needle and contrast in the region of the right L5-S1 facet joint. FL/FL guidance in treatment room IMPRESSION: Fluoroscopy during procedure. Please see procedure report for additional information. Electronically signed by: Skyler Jacome MD 09/11/2024 12:26 PM ARMAAN QUICK
--- OUTSIDE RECORDS SUMMARY | 2024-09-11 06:17 | XMS_ITS | Clinical Summary ---
Author Organization [facility] Address [address] [id number] Care Team Providers Care Estate Agent Name Role Phone Usha Goldberg APRN Primary Care Provider Usha Goldberg APRN Unavailable [phone] Medications Naproxen Sodium (Aleve) 220 MG tablet TAKE 1 TABLET EVERY 12 HOURS NEEDED. 0 3 Active Fexofenadine HCl (Jaida Allergy) 180 MG tablet TAKE 1 TABLET BY MOUTH EVERY DAY NEEDED 0 8 Active Cholestyramine (QUESTRAN) 4 g packet MIX THE CONTENTS OF 1 POWDER PACKET WITH 2-6 OZ OF NONCARBONATED BEVERAGE AND SWALLOW ONCE DAILY. 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 Report response. Avoid trigger foods. Joint pain, knee 11/16/2017 Allergic rhinitis 11/16/2017 Overview (09/11/2023): Impression - [id number]: Continue otc meds prn. Tongue coating 11/16/2017 Overview (09/11/2023): Impression - [id number]: Culture obtained. Try nystatin suspension. See dentist. Will call with results. Impression - [id number]: Advised to see Dentist. Obesity 02/19/2011 Overview (09/11/2023): Impression - [id number]: Encouraged healthy eating, regular exercise for weight loss. Immunizations Name Administration Dates Next Due PPD/TST (Tuberculin Skin Test) 02/22/2011 Td (adult), adsorbed 11/06/2002,11/06/2002 Tdap 12/18/2009 Family History Medical History Relation Name Comments Cancer - Pancreatic Father pancreat ic cancer : Father Cancer - Lung Maternal grandfather lung c ancer : Maternal Grandfather Relation Name Status Comments Father Maternal grandfather Social History Tobacco Use Types Packs/Day Years Used Date Smoking Tobacco: Never Assessed Comments:Smoking Status:No c urrent tobacco use Sex and Gender Information Value Date Recorded Sex Assigned at Not on file Legal Sex Male 8:33 PM EDT Gender Identity Not on file Sexual Orientation Not on file Last Filed Vital Signs Vital Sign Reading Time Taken Comments Blood Pressure 127/80 04/18/2018 9:05 AM EDT RUE RUE Pulse 72 04/18/2018 9:08 AM EDT Temperature 37.4 ??C (99.4 ??F) 11/16/2017 11:42 AM E DT Respiratory Rate - - Oxygen Saturation - - Inhaled Oxygen Concentration - - Weight 148 kg (326 lb 15.8 oz) 04/18/2018 9:05 A M EDT Height 177.8 cm (5' 10 ) 04/18/2018 9:05 AM EDT Body Mass Index 46.92 04/18/2018 9:05 AM EDT Plan of Treatment Health Maintenance Due Date Last Done Comments Hepatitis C Screening 1970 Colon Cancer Screening 2015 DTaP/Tdap/Td (2 - Td or Tdap) 12/19/2019, 11/06/2002, 11/06/2002 Pneumococcal 50+ years (1 of 1 - PCV) 2020 Zoster (Shingrix) (1 of 2) 2020 COVID-19 Vaccine ( - 2023-2 5 season) 2024 Influenza (#1) 2024 PPD Discontinued 02/22/2011 LDL Cholesterol Discontinued 04/18/2018 Physical Discontinued 04/18/2018 HPV Vaccine Aged Out No longer eligi ble based on patient's age to complete this topic Hep A Aged Out No longer eligi ble based on patient's age to complete this topic Hib Aged Out No longer eligi ble based on patient's age to complete this topic Meningococcal ACWY Aged Out No longer eligible based on patient's age to complete this topic Procedures Procedure Name Priority Date/Time Associated Diagnosis Comments LIPID PANEL, PLASMA Routine 04/18/2018 4 :42 PM EDT from Last 3 Months or Most Recently Relevant to Health Maintenance Results * (ABNORMAL) LIPID PANEL, PLASMA (04/18/2018 4:42 PM EDT) Cholesterol 205(H) 0 - 199 mg/dL PHCT CONVERSIONS Triglyceride 189(H) 0 - 150 mg/dL PH[facility] CONVERSIONS VLDL Cholesterol 38 5 - 40 mg/dL PH[facility] CONVERSIONS HDL Cholesterol 34(L) 40 - 80 mg/dL PH[facility] CONVERSIONS LDL Cholesterol 133(H) 0 - 100 mg/dL PH[facility] CONVERSIONS Cholesterol Non-HDL 171(H) 0 - 130 mg/dl PH[facility] CONVERSIONS CHOL/HDL Ratio 6.0 PHCT CONVERSIONS 04/18/2018 4:42 PM EDT Narrative PHCT CONVERSIONS - 04/18/2018 7:29 PM EDT No Collection Date or Time Noted on requisition, Received Date and Time utilized. FASTING: YES Testing Performed at: [facility], [address] [place] [address], , [employer] Supervisor: Farzana Camargo MD CL#[id number] Usha Goldberg [facility] Final Result PHCT CONVERSIONS from Last 3 Months or Most Recently Relevant to Health Maintenance Care Teams Estate Agent Relationship Specialty Start Date End Date Usha Goldberg APRN [address] [place] [address] PCP - General 03/14/23 Usha Goldberg APRN [address] [place] [address] PCP - Backup PCP Internal Medicine 09/08/23
== END 2024-09-11 06:16 | disposition home or self-care (01) ==
LOC: CF 06:15
PROVIDERS: Visit Provider Anesthesiology
DX: M54.16 Radiculopathy, lumbar region (principal)
CPT/HCPCS: 64483; J2003; J3301; Q9967

== ENCOUNTER 2024-09-11 11:00 | Outpatient (AMB) | payer OTHER, SELFPAY ==
[2024-09-11 11:05] VITALS: BP 128/76; PULSE 103; RESP 16; O2SAT 95
--- NOTE | 2024-09-11 11:05 | A.OFFVIS_ITS ---
Vital Signs 09/11/24 11:05 09/11/24 11:47 BP 128/76 120/84 Blood Pressure Location Lt brachial Lt brachial Position Sitting Sitting Respiration 16 16 Pulse 103 H 89 Pulse Source Pulse Oximeter Pulse Oximeter Pulse Oximetry (%) 95 93 Oxygen Delivery Method Room Air Room Air Intake Visit Reasons: RIGHT L5, S1 TFESI Award Machine Operator Required: No Allergies animal dander Allergy (Intermediate, Verified 09/11/24 11:05) Itchy Eyes mite-Dermatophagoides farinae, chau [dust mite - [place]] Allergy (Intermediate, Verified 09/11/24 11:05) Unknown Seasonal Allergies Allergy (Intermediate, Verified 09/11/24 11:05) Itchy Eyes Medication List - Last Reconciled 09/11/24 by Constanza Salmeron LPN cholestyramine-aspartame 4 gram 1 ea PO DAILY copper 2 mg PO DAILY curcumin-phosphatidylcholine 500 mg PO DAILY diclofenac sodium 75 mg PO BID hydroxychloroquine 400 mg PO DAILY ibuprofen (Advil) 800 mg PO Q8H PRN lisinopril 5 mg PO DAILY methocarbamol 500 mg PO BID omeprazole magnesium (Prilosec OTC) 20 mg PO DAILY PRN ondansetron 4 mg PO Q8H PRN oxycodone 10 mg PO BID PRN tramadol 50 mg PO TID PRN PFSH Medical History Tubular adenoma of colon Personal history of nicotine dependence GERD (gastroesophageal reflux disease) Hx of fracture of skull (~1975) Lactose intolerance Arthritis Pain in joint, multiple sites Morbid obesity Surgical History History of lumbar discectomy History of colonoscopy History of wisdom tooth extraction History of cholecystectomy (~1994) Family History Maternal Grandmother Dementia Mother Osteoarthritis Ankylosing spondylitis Aortic aneurysm Maternal Grandfather Lung tumor Father Pancreatic cancer Social History Household Members: None Housing: Condominium Are you a primary foster care social worker to a significant other at home: No Do you presently have visiting nurse or other home services: No Alcohol intake: current Alcohol intake frequency: holidays/special occasions only Patient Tobacco Use Status: Former Tobacco user Tobacco use type: Cigarette Years Smoked: (onset 18yo, 1-2ppd x 21yrs, 30PYH - quit 2009) Second Hand Smoke Exposure: No service: No Current occupational status: employed 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 Informed consent was thoroughly explained to the patient before the procedure.? The patient came to the operating room.? He was positioned prone on operating table with a pillow under his abdomen.? Time-out was performed delineating correct site and side of the procedure, nature of the injection, name and date of of the patient. The lower back of the patient was prepped with ChloraPrep and draped with sterile utility towels.? C-arm was brought over the operating field and sq picture of L5 was demonstrated on the screen.? The right side was chosen as the side of the injection.? Tilting machine ipsilateral to the right at the level of L5 1st the most prominent picture of the right pedicle was obtained on the screen.? 3 mm below the level of the lowest point of the pedicle projection to the skin small amount of lidocaine 1% 3-4 cc was injected to anesthetize the skin.? After that 7 in 22 gauge Quincke point needle was inserted through the skin wheal and was advanced toward the L5-S1 foramina on anterior posterior , lateral and oblique views intermittently.? When needle reached appropriate p osition injection of the contrast was performed delineating epidural and perineural spread of the contrast. No intravascular no intraneural and no intrathecal spread of the contrast was noted. After that injection of the 3 cc of lidocaine 1% mixed with Kenalog 40 mg was performed into the needle. Upon completion of the injection needle was removed . Upon completion of the procedure needle was removed, sterile Band-Aid was applied. Patient tolerated the procedure well. Orders: Orders FL guidance in treatment room Today M54.16 - Radiculopathy, lumbar region Coding Level of Care Code Procedure Only Diagnoses Lumbar radiculopathy M54.16
[2024-09-11 11:47] VITALS: BP 120/84; PULSE 89; RESP 16; O2SAT 93
--- OUTSIDE RECORDS SUMMARY | 2024-09-11 11:56 | XMS_ITS | Clinical Summary ---
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 Report response. Avoid trigger foods. Joint pain, knee 11/16/2017 Allergic rhinitis 11/16/2017 Overview (09/11/2023): Impression - [id number]: Continue otc meds prn. Tongue coating 11/16/2017 Overview (09/11/2023): Impression - [id number]: Culture obtained. Try nystatin suspension. See dentist. Will call with results. Impression - [id number]: Advised to see Dentist. Obesity 02/19/2011 Overview (09/11/2023): Impression - [id number]: Encouraged healthy eating, regular exercise for weight [...] Time utilized. FASTING: YES Testing Performed at: [facility], [address] [place] [address], , Greenhouse Florist: Farzana Camargo MD CL#[id number] Usha Goldberg [facility] Final Result PHCT CONVERSIONS from Last 3 Months or Most Recently Relevant to Health Maintenance Care Teams Senior Analysis Specialist Relationship Specialty Start Date End Date Usha Goldberg APRN [address] [place] [address] PCP - General 03/14/23 Usha Goldberg APRN [address] [place] [address] PCP - Backup PCP Internal Medicine 09/08/23
== END 2024-09-11 11:49 | disposition home or self-care (01) ==
LOC: HO.PMCPRC 11:00
PROVIDERS: PCP Nurse Practitioner; Visit Provider Anesthesiology
DX: M54.16 Radiculopathy, lumbar region (principal)
CPT/HCPCS: 64483

== ENCOUNTER 2024-09-14 11:00 | Outpatient (RCR) | payer OTHER, SELFPAY ==
[2024-07-13 13:04] VITALS: BP 132/79; PULSE 98
--- NOTE | 2024-07-13 13:47 | MHC.PT.EP ---
[facility] [place] Office [place] Office [place] Office [address] Sanchez [address] [phone] F: [phone] F: [phone] F: [phone] F: [phone] Physical Therapy Plan of Care Date of Evaluation: 07/13/24 Date of Surgery: 06/07/24 Diagnosis: Radiculopathy, lumbar region Lumbar radiculopathy, patients is about 2 months out from R L5-S1 microdisectomy Assessment: Suresh is a 53 year old male who is referred to PT for radiculopathy, lumbar region . He is 5 weeks s/p microdiscectomy. He currently presents with mild low back pain, R buttock and R calf pain. On PT examination he has no TTP, 2-4/10 pain in low back, R buttock, R calf, decreased lumbar ROM, decreased core and B LE strength, altered posture and gait. He lives alone and is independent with all ADLS but takes frequent seated rest breaks. 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 He would benefit from skilled PT to address the aforementioned impairments and improve tolerance to functional activities. Frequency and Duration: The patient will be seen 2/week for 5 weeks. Short Term Goals: 1. Pt will have 50% decrease in pain which will enable him to tolerate standing and walking for 1.5 hours in 2 weeks. 2. Pt will be able to move his trunk through all planes of motion without pain which will enable him to dress his lower body without pain in 3 weeks. Home Builder Goals: 1. Pt will demonstrate an increase in muscle strength by 1 grade which will enable him to perform all ADLS without modifications and seated rest breaks in 5 weeks. 2. Pt will be independent with all HEP and return to PLOF in 5 weeks. Treatment Plan: Modalities to reduce pain, spasms and effusion. Manual therapy to restore motion and function. Therapeutic exercise to improve strength and flexibility. Neuromuscular re-education for posture and balance. Therapeutic activities to return to functional activities of daily living. Electronically signed by: Kinga Parson PT DPT Please sign and return to therapist. Thank you for your referral.
--- NOTE | 2024-09-18 09:14 | MHC.PT.DC ---
[facility] [place] [facility] [place] [facility] [place] [facility] [address] Yoko Sanchez [address] [phone] F: [phone] F: [phone] F: [phone] F: [phone] Physical Therapy Discharge Report Diagnosis: Radiculopathy, lumbar region Lumbar radiculopathy, patients is about 2 months out from R L5-S1 microdisectomy Date of Surgery: 06/07/24 Date of Evaluation: 07/13/24 Date of Discharge: 09/18/24 Treatments to Date: 12 Cancellations to Date: 1 No Shows to Date: 0 Discharge Status: Achieved Goals Improved Function Independent with HEP Discharge Summary: Suresh has completed 12 PT visits. He has made significant improvements with PT. He denies having any radicular symptoms and has had no low back pain either. He has achieved all goals set for him. He is therefore being d/c from PT today. Suresh was in agreement with the plan. I reviewed all exercises with him today. Electronically signed by: Kinga Parson, PT DPT Please sign and return to therapist. Thank you for your referral.
== END 2024-09-18 09:14 | disposition home or self-care (01) ==
LOC: HO.PT 11:00
PROVIDERS: PCP Nurse Practitioner; Visit Provider Physician Assistant
DX: M54.16 Radiculopathy, lumbar region (principal); Z98.890 Other specified postprocedural states
CPT/HCPCS: 97110; 97112; 97161; 97530

== ENCOUNTER 2024-09-27 11:32 | Outpatient (AMB) | payer OTHER, SELFPAY ==
--- NOTE | 2024-09-27 11:34 | A.OFFVIS_ITS ---
Vital Signs 09/27/24 11:37 Height 5 ft 10 in BP 145/86 H Blood Pressure Location Lt brachial Position Sitting Pulse 98 Pulse Source Pulse Oximeter Pulse Oximetry (%) 100 Oxygen Delivery Method Room Air Intake Visit Reasons: RIGHT L5, S1 TFESI Intake Note: Pain today 210 Electrical Development Engineer Required: No Accompanied by: Self / Same As Patient Allergies animal dander Allergy (Intermediate, Verified 09/27/24 11:38) Itchy Eyes mite-Dermatophagoides farinae, chau [dust mite - [place]] Allergy (Intermediate, Verified 09/27/24 11:38) Unknown Seasonal Allergies Allergy (Intermediate, Verified 09/27/24 11:38) Itchy Eyes HPI Comments Details: Patient presents today to assess response to RIGHT L5, S1 TFESI on 09/11/[address] Dixon. Patient reports ongoing 80% pain relief since procedure with improvement in his daily activities and functioning, mobility, sleep and social interactions. He continues to report right leg radicular symptoms into his right big toe which feels to him as a rubber band around his toe. Patient reports his back pain has been 2-4/10 at its intensity for the past 3 weeks since injection. Denies any recent cough, cold, infection, fever or any significant changes in medical history since last office visit. Past Procedures: 09/11/24: Right L5-S1 TFESI-80% ongoing pain relief PRIOR: Patient is a pleasant 53 years old male with history of chronic low back pain s/p L5-S1 diskectomy, morbid obesity, arthritis, presents today for initial evaluation for lower back pain with right sided radiculopathy. Denies any recent trauma, injury or falls. Back pain is axial, discogenic and also radiates into his right buttock and lateral calf with tingling in his big toe. Pain is present with activity and less severe with rest or walking. He was evaluated by [facility] and offered a right L5-S1 facetectomy. Patient is interested in therapeutic DANICA injection prior to consideration of additional back surgery. He is currently active with PT and home exercise and has tried oral medications, including opioids, muscle relaxants, prednisone, NSAIDs, gabapentin and Cymbalta for symptomatic relief with continued pain and decreased functioning. Pain affects his daily activities and functioning, mood, sleep, social interactions and quality of life. 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 He is currently on medical leave due to back pain. Denies any fever or chills, abdominal or groin pain, weakness, foot drop, bladder or bowel dysfunction or saddle anesthesia. Oswestry Low Back Pain Disability Score=21 (moderate disability) [facility] 08/17/24 Dr. Harvey: On 08/16/2024, I saw for follow-up Suresh Anand. He is status post L5-S1 diskectomy, extraforaminal approach for right lumbar radiculopathy. This surgery only helpful 1 month after the pain returned in all severity. The pain radiates in an L5 dermatome. A repeat MRI shows ongoing compression, most likely from a bone spur as it was not able to retrieve any disc fragments during surgery. He is debilitated and can not work. I offered him a right L5-S1 facetectomy with posterior instrumentation to provide maximum room for the nerve root. He will see pain management 1st before we see the doing this. He will contact my office to let us know if pain management have any other options then my surgery. Location: Lower back radiates down into right leg posteriorly Duration: Chronic pain, worsening since January 2024 Characteristics of symptom or complaint: Sharp, stabbing, burning, tightness, pressure, tingling, radiating Aggravating or associated factors: Standing, bending, ROM, squatting, movements, lifting Relieving factors: PT, walking, gabapentin, oxycodone, Cymbalata, diclofenac, methocarbamol Treatment: Active PTx9, chiropractic, acupuncture, TENS unit, MRI, Neurosurgery eval [facility] Medical History Tubular adenoma of colon Personal history of nicotine dependence GERD (gastroesophageal reflux disease) Hx of fracture of skull (~1975) Lactose intolerance Arthritis Pain in joint, multiple sites Morbid obesity Surgical History History of lumbar discectomy History of colonoscopy History of wisdom tooth extraction History of cholecystectomy (~1994) Family History Maternal Grandmother Dementia Mother Osteoarthritis Ankylosing spondylitis Aortic aneurysm Maternal Grandfather Lung tumor Father Pancreatic cancer Social History Household Members: None [facility] Are you a primary healthcare management consultant to a significant other at home: No Do you presently have visiting nurse or other home services: No Alcohol intake: current Alcohol intake frequency: holidays/special occasions only Patient Tobacco Use Status: Former Tobacco user Tobacco use type: Cigarette Years Smoked: (onset 18yo, 1-2ppd x 21yrs, 30PYH - quit 2009) Second Hand Smoke Exposure: No service: No Current occupational status: employed 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 Review of Systems Const All systems reviewed & are unremarkable except as noted in HPI and below Physical Exam Vital Signs: Last Vital Signs Pulse 98 09/27/24 11:37 BP 145/86 H 09/27/24 11:37 Pulse Ox 100 09/27/24 11:37 Oxygen Delivery Method Room Air 09/27/24 11:37 General: Appears afebrile. Alert and oriented. Mood and affect appropriate. Follows and participates in conversation appropriately. Respiratory effort is unlabored. No cough. Able to transition from sit to stand unassisted. Ambulates with bilaterally normal heel strike and toe off. General: Yes no CVA tenderness Back/Spine/Pelvis Other: Limited lumbar ROM due to minimal pain. Mild limping, non-antalgic gait. Can flex forward to 65-70 degrees and extend to 5-10 degrees before experiencing lumbar pain. Demonstrates 5/5 strength of quadriceps bilaterally as well as flexion/dorsiflexion of bilateral feet against resistance. 2+ pedal pulses bilaterally. Straight leg rise with dorsiflexion positive on the right. +1 patellar and achilles reflexes bilaterally. Facet loading test positive bilaterally. René sign, Bernard?s and Stinchfield tests are positive on the right. No groin pain with I/E hip rotations. Valsalva maneuver is negative. Back: no CVA tenderness Cervical Spine: cervical ROM normal, Cervical spine tenderness and No step off deformity Thoracic/Lumbar Spine: thoracic and lumbar spine normal to inspection, Thoracic/lumbar spine scar(s), Lasegue's sign positive on the right and diffuse, pain with thoraco-lumbar ROM, paraspinal muscle tenderness on the right greater than left, thoraco-lumbar ROM limited, No thoracic spinal tenderness and lumbar spinal tenderness (L4-S1) Pelvis: buttock tenderness on the right and sciatic notch tenderness on the right Sacroiliac joints: on the right tender to palpation and on the left nontender Extrem General: Yes capillary refill normal, Yes no clubbing, cyanosis or edema and Yes no calf tenderness Results Reviewed Results Reviewed: MR LUMBAR SPINE WITHOUT AND WITH CONTRAST 07/25/24 CLINICAL INFORMATION: Radiculopathy, lumbar region COMPARISON: MR lumbar spine on 04/16/2024 TECHNIQUE: MRI of the lumbar spine was obtained using routine sequences with and without contrast. Intravenous contrast: Gadavist 10 mL FINDINGS: Mild retrolisthesis at L5-S1. Redemonstration of T1 and T2 hypointense lesion involving the L3 inferior endplate with associated STIR hyperintensity and enhancement likely representing acute to subacute Schmorl's node. No other sites of abnormal bone marrow signal. The vertebral body heights are preserved. Multilevel disc desiccation with moderate disc height loss at L5-S1. Type II endplate changes at L3-4, L4-5, and L5-S1. Multilevel endplate osteophytosis. The visualized spinal cord is normal in caliber. There is edema and enhancement of the right exiting L5 nerve roots compatible with compressive neuritis. No other site of abnormal cord signal or enhancement. The conus medullaris terminates at L1-2. T12-L1: No significant spinal canal or neural foraminal narrowing. L1-2: Shallow disc bulge with superimposed central extrusion migrating superiorly, unchanged. No significant spinal canal or neural foraminal narrowing. L2-3: Shallow disc bulge with tiny central disc extrusion migrating superiorly, unchanged. No significant spinal canal stenosis. Mild bilateral neural foraminal narrowing, unchanged. L3-4: Shallow disc bulge with superimposed annular fissure. Bilateral facet arthrosis. No significant spinal canal stenosis. Moderate left greater than right neural foraminal narrowing with the disc abutting the exiting L3 nerve roots bilaterally, unchanged. L4-5: Shallow disc bulge with superimposed annular fissure. Bilateral facet arthrosis. No significant spinal canal stenosis. Moderate left greater than right neural foraminal narrowing with mass effect on the exiting L4 nerve roots bilaterally, unchanged. L5-S1: Diffuse disc bulge with superimposed right subarticular disc protrusion. Bilateral facet arthrosis. There is new extensive edema and enhancement surrounding the right facet joint. No significant spinal canal stenosis. Severe right and mild left neural foraminal narrowing with impingement of the right exiting L5 nerve roots. The right exiting L5 nerve roots continue to demonstrate edema and enhancement. The paravertebral soft tissues are unremarkable. IMPRESSION: -Multilevel lumbar spondylosis as described above without significant spinal canal stenosis. -Neural foraminal narrowing is worst and severe on the right at L5-S1 with impingement of the right exiting L5 nerve roots. There is edema and enhancement of the right exiting L5 nerve roots compatible with compressive neuritis. Additionally, there is new extensive edema and enhancement surrounding the right facet joint at this level compatible with reactive changes. Assessment & Plan Assessment & Plan (1) Lumbar radiculopathy: Code(s): M54.16 - Radiculopathy, lumbar region Category: Medical (2) Lumbar degenerative disc disease: Code(s): M51.369 - Other intervertebral disc degeneration, lumbar region without mention of lumbar back pain or lower extremity pain Category: Medical (3) Lumbosacral spondylosis: Code(s): M47.817 - Spondylosis without myelopathy or radiculopathy, lumbosacral region Category: Medical (4) Neuroforaminal stenosis of lumbosacral spine: Code(s): M48.07 - Spinal stenosis, lumbosacral region Category: Medical Plan Patient is 3 weeks status post right L5-S1 TFESI with ongoing 80% pain relief and improved ADLs, mobility and sleep. Previously discussed treatment options for both his axial low back as well as radicular and discogenic low back pain, diagnostic versus therapeutic injections, neuromodulation with Sprint PNS and SCS trials vs implant, RFA and Intracept BVN ablation procedures. Patient is encouraged to follow up with Dr. Harvey if worsening of symptoms or no sustained pain relief since therapeutic injection. Patient is encouraged daily physical activity, continue PT and home exercise p rogram, weight loss, adequate hydration, good posture and activity modifications as needed. All questions were answered and the patient is in agreement of plan. Follow-up as needed. Coding Level of Care Code Est Pt Level 4 (88427) Complex EM visit Add On G2211 Diagnoses Lumbar radiculopathy M54.16 Lumbar degenerative disc disease M51.369 Lumbosacral spondylosis M47.817 Neuroforaminal stenosis of lumbosacral spine M48.07
[2024-09-27 11:37] VITALS: BP 145/86; PULSE 98; O2SAT 100
--- OUTSIDE RECORDS SUMMARY | 2024-09-27 12:53 | XMS_ITS ---
Author Organization [facility] Address [address] [place] [address] Care Team Providers Care Assistant Paralegal Name Role Phone MI MIRANDA M.D. Primary Care Provider Nichole vailable Billy Castellanos Jr Unavailable [phone] REASON FOR VISIT pathology Encounters Encounter Location Date Provider Diagnosis [facility] [address] [place] [address] 01/23/2024 Billy Castellanos Jr PLAN OF TREATMENT No Information
--- OUTSIDE RECORDS SUMMARY | 2024-09-27 12:53 | XMS_ITS ---
Author Organization [facility] Address [address] [place] [address] Care Team Providers Care Garnisher Name Role Phone MI MIRANDA M.D. Primary Care Provider Billy Giron Jr Unavailable [phone] ALLERGIES Allergen (clinical drug ingredient) Drug/Non Drug [...] Problem Colon cancer screening (Z12.11) Active confirmed [id number] Problem Encounter for other preprocedural examination (Z01.818) Active confirmed [id number] Problem Loose stools (R19.5) Active confirmed 783974113 VITAL SIGNS BMI 45.25 kg/m2 12/12/2023 Blood pressure systolic 000 mm Hg 12/12/19 24 Blood pressure diastolic 00 mm Hg 024 Height 5 ft 10 in in 12/12/2023 Temperature 97.5 degrees Fahrenheit 12/12/19 24 Weight 315 lb 6 oz lbs 12/12/2023 Encounters Encounter Location Date Provider Diagnosis [facility] [address] [place] [address] 12/12/2023 Billy Castellanos Jr Colon cancer screening [...]
--- OUTSIDE RECORDS SUMMARY | 2024-09-27 12:53 | XMS_ITS ---
Author Organization [facility] Address [address] [place] [address] Care Team Providers Care Slitting And Shipping Supervisor Name Role Phone MI MIRANDA M.D. Primary Care Provider Nichole vailable Billy Castellanos Jr Unavailable [phone] REASON FOR VISIT screening Encounters Encounter Location Date Provider Diagnosis [facility] Outpatient [address] [place] [id number] 01/18/2024 Billy Castellanos Jr Encounter for screening colonoscopy Z12.11 and Colon polyps K63.5 ASSESSMENTS Encounter Date Diagnosis Assessment Notes Treatment Notes Treatment Clinical Notes 01/18/2024 Encounter for screening colonoscopy (ICD-10 - Z12.11) 01/18/2024 Colon polyps (ICD-10 - K63.5) PLAN OF TREATMENT No Information
--- OUTSIDE RECORDS SUMMARY | 2024-09-27 12:54 | XMS_ITS | Patient Health Record ---
Author Organization [facility] Address [address] [place] [address] Care Team Providers Care Human Resources Benefits Manager Name Role Phone MI MIRANDA M.D. Primary Care Provider Nichole caleb Castellanos Jr Billy Unavailable ALLERGIES Allergen (clinical drug ingredient) Drug/Non Drug Allergy documented on EMR Reaction Allergy Type Onset Date Status Dust Mites Unknown Allergy Active seasonal (uncoded) Unknown Allergy A ctive RESULTS Component Value Reference Range Notes Pathology Reviewed date:01/23/2024 08:54:43 AM Interpretation: Performing Lab:[facility], [address] [place] [phone] Notes/Report: REASON FOR REFERRAL No Information MEDICATIONS [...] Problem Colon cancer screening (Z12.11) Active confirmed 647727366 Problem Encounter for other preprocedural examination (Z01.818) Active confirmed 118383368 Problem Loose stools (R19.5) Active confirmed 897375749 VITAL SIGNS Temperature 97.5 degrees Fahrenheit 12/12/2023 Blood pressure diastolic 00 mm Hg 12/12/2023 Height 5 ft 10 in in 12/12/2023 Blood pressure systolic 000 mm Hg 12/12/2023 Weight 315 lb 6 oz lbs 12/12/2023 BMI 45.25 kg/m2 12/12/2023 Encounters Encounter Location Date Provider Diagnosis [facility] [address] [place] [phone] 01/18/2024 Billy Castellanos Jr Encounter for screening colonoscopy Z12.11 and Colon polyps K63.5 [facility] [address] [place] [phone] 11/28/2023 Billy Castellanos Jr [facility] [address] [place] [phone] 12/12/2023 Billy Castellanos Jr Colon cancer screening Z12.11 and Loose stools R19.5 [facility] [address] [place] [address] 01/23/2024 Billy Castellanos Jr ASSESSMENTS Encounter Date [...] Date [employer] [place] [address] [place] [address] [id number] SUE MOURA Self - patient is the insured MEDICAL (GENERAL) HISTORY Medical History History ICD Code Inflammatory arthritis Lactose intolerance Elevated BMI Surgical History Surgery Date(Month/Year) Cholecystectomy 1992
--- OUTSIDE RECORDS SUMMARY | 2024-09-27 12:54 | XMS_ITS | Clinical Summary ---
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 Report response. Avoid trigger foods. Joint pain, knee 11/16/2017 Allergic rhinitis 11/16/2017 Overview (09/11/2023): Impression - [id number]: Continue otc meds prn. Tongue coating 11/16/2017 Overview (09/11/2023): Impression - 41Lhu4981: Culture obtained. Try nystatin suspension. See dentist. Will call with results. Impression - 89Vbh4801: Advised to see Dentist. Obesity 02/19/2011 Overview (09/11/2023): Impression - 02Ehk4293: Encouraged healthy eating, regular exercise for weight [...] Time utilized. FASTING: YES Testing Performed at: [facility], [address] [place] [address], , Certified Professional Controller: Farzana Camargo MD CL#[id number] Usha Goldberg [facility] Final Result PHCT CONVERSIONS from Last 3 Months or Most Recently Relevant to Health Maintenance Care Teams Post Doc Fellowship Relationship Specialty Start Date End Date Usha Goldberg APRN [address] [place] [address] PCP - General 03/14/23 Usha Goldberg APRN [address] [place] [address] PCP - Backup PCP Internal Medicine 09/08/23
== END 2024-09-27 11:52 | disposition home or self-care (01) ==
PROVIDERS: PCP Nurse Practitioner; Visit Provider Nurse Practitioner Family
DX: M54.16 Radiculopathy, lumbar region (principal); M51.369 Other intervertebral disc degeneration, lumbar region without mention of lumbar back pain or lower extremity pain; M47.817 Spondylosis without myelopathy or radiculopathy, lumbosacral region; M48.07 Spinal stenosis, lumbosacral region
CPT/HCPCS: 99214

== ENCOUNTER 2024-12-04 07:43 | Outpatient (REF) | payer OTHER, SELFPAY ==
--- OUTSIDE RECORDS SUMMARY | 2024-12-04 07:46 | XMS_ITS | Clinical Summary ---
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 Report response. Avoid trigger foods. Joint pain, knee 11/16/2017 Allergic rhinitis 11/16/2017 Overview (09/11/2023): Impression - 26Tof4510: Continue otc meds prn. Tongue coating 11/16/2017 Overview (09/11/2023): Impression - 55Kil0426: Culture obtained. Try nystatin suspension. See dentist. Will call with results. Impression - 25Khu9869: Advised to see Dentist. Obesity 02/19/2011 Overview (09/11/2023): Impression - 00Wsq5392: Encouraged healthy eating, regular exercise for weight [...] Time utilized. FASTING: YES Testing Performed at: [facility], [address] [place] [address], , Diving Fisher: Farzana Camargo MD CL#[id number] Usha Goldberg [facility] Final Result PHCT CONVERSIONS from Last 3 Months or Most Recently Relevant to Health Maintenance Care Teams Public Information Director Relationship Specialty Start Date End Date Usha Goldberg APRN [address] [place] [address] PCP - General 03/14/23 Usha Goldberg APRN [address] [place] [address] PCP - Backup PCP Internal Medicine 09/08/23
[2024-12-04 08:30] LABS: Estimated Average Glucose 120 mg/dL; Hemoglobin A1C 147.1595 umol/L; Hemoglobin A1c % 5.8 % (<6.0); Total Hemoglobin (HGBA1C) 3729.2129 umol/L
[2024-12-04 09:27] LABS: Alanine Aminotransferase 71 U/L (0-40); Albumin Level 4.5 g/dL (3.5-5.0); Alkaline Phosphatase 72 U/L (39-117); Anion Gap 15 (12-20); Aspartate Amino Transferase 52 U/L (5-37); Bilirubin Total 0.7 mg/dL (0.0-1.0); Blood Urea Nitrogen 13 mg/dL (9-16); Calcium 9.2 mg/dL (8.4-10.2); Carbon Dioxide 24 mmol/L (22-29); Chloride 105 mmol/L (96-108); Estimated Glomerular Filt Rate > 60; Glucose Random 103 mg/dL (60-115); Potassium 3.8 mmol/L (3.3-5.1); Sodium 140 mmol/L (135-145); Total Protein 8.3 g/dL (6.5-8.0)
[2024-12-04 09:31] LABS: Prostate Specific Antigen 0.88 ng/mL (<0.05-4.0)
== END 2024-12-04 07:44 | disposition home or self-care (01) ==
LOC: HO.LAB 07:43
PROVIDERS: PCP Nurse Practitioner; Visit Provider Nurse Practitioner
DX: R10.13 Epigastric pain (principal); Z12.5 Encounter for screening for malignant neoplasm of prostate; R73.01 Impaired fasting glucose; R39.14 Feeling of incomplete bladder emptying
CPT/HCPCS: 36415; 80053; 83036; 84153

== ENCOUNTER → 2024-12-18 08:16 | Outpatient (BNVA) | payer OTHER, SELFPAY | PROVIDERS: PCP Nurse Practitioner; Visit Provider Internal Medicine Gastroenterology ==

== ENCOUNTER 2024-12-18 08:40 | Outpatient (REF) | payer OTHER, SELFPAY ==
--- OUTSIDE RECORDS SUMMARY | 2024-12-21 11:51 | XMS_ITS | Patient Health Record ---
Author Organization [facility] Address [address] [place] [address] Care Team Providers Care High School Vice Principal Name Role Phone MI MIRANDA M.D. Primary Care Provider Nichole Billy Mitchell Jr Unavailable Allergies Allergen (clinical drug ingredient) Drug/Non Drug Allergy documented on EMR Reaction Allergy Type Onset Date Status Dust Mites Unknown Allergy Active seasonal (uncoded) Unknown Allergy A ctive Results Component Value Reference Range Notes Pathology Reviewed date:01/23/2024 08:54:43 AM Interpretation: Performing Lab:[facility], [address] [place] [phone] Notes/Report: Name: David Moura Age/Sex: 53/M : 1970 Unit#: [id number] Attend Dr: Billy Castellanos MD Re01/18/24 Status : [facility] Location: [facility] Disch: SPEC : [id number] RECD : 01/19/24 STATUS: BONNIE CHEN NUM: [id number] REVA: 01/18/24-[address]: Billy Castellanos MD ENTERED: 01/19/24 53 SP TYPE: Surgical OTHR DR: ORDERED: HE Stain/9, Gross Micro L4/3 Diagnosis A. Colon, at 30 cm, 2 polyps: Hyperplastic polyps, two. B. Colon, at 20 cm, polyp: Tubular adenoma; negative for high-grade dysplasia and carcinoma. C. Colon, rectal citlaly yp: Hyperplastic polyp. Clinical History Pre-Op Dx: Screening Post-Op Dx: Colon polyps Microscopic Description Microscopic sections reviewed. Material Received A. Polyps @ 30 cm (2) B. Polyp @ 20 cm C. Rectal polyp Gross Description Received in three parts. Part A: Received in formalin labeled ?polyps at 30 cm? are 2 flores irregular tissue fragments measuring 0.2 and 0. 3 cm, submitted in toto in a cassette labeled A. Part B: Received in formalin labeled ?polyp at 20 cm? is a 0.25 cm flores irregular tissue fragment, submitted in toto in a cassette labeled B. Part C: Received in formalin labeled ?rectal polyp? are 4 flores irregular tissue fragments ranging from 0.2-0.2 5 cm, submitted in toto in a cassette labeled C. CEDS Signed (si gnature on file) Swetha Oleksandr 01/20/24 1442 END OF REPORT Reason For Referral No Information Medications Medication SIG (Take, Route, Frequency, Duration) Notes Start Date End Date Status MiraLax (colon prep) 17 GM/SCOOP mixed with Gatorade or Crystal Light Orally begin at 5:00 p.m. the day before the procedure for 1 day 12/12/2023 Active Cholestyramine Light 4 GM Oral for 30 Active Hydroxychloroquine Sulfate 2 00 MG Oral for 30 Active Immunizations Vaccine Route Administration Date Status Comme nts Influenza Unknown 05/31/2023 Administered Social History Tobacco Use: Social History Observation Description Date Details (start date - stop date) Former Smoker NA - NA Tobacco Use/Smoking Question Answer Notes Patient is [...] Never (0 point) Points 3 Interpretation Negative Problems Problem Type SNOMED Code ICD Code Onset Dates Problem Status W/U Status Risk Notes Problem [id number] Colon cancer screening (Z12.11) Active confirmed Problem 778261359 Encounter for other preprocedural examination (Z01.818) Active confirmed Problem 339590047 Loose stools (R19.5) Active confirmed Encounters Encounter Location Date Provider Diagnosis [facility] [place] [address] [place], [place] [phone] 01/18/2024 Billy Castellanos Jr Encounter for screening colonoscopy Z12.11 and Colon polyps K63.5 [facility] [address] [place] [address] 01/23/2024 Billy Castellanos Jr Assessments Encounter Date Diagnosis (ICD Code) Assessment Notes Treatment Notes Treatment Clinical Notes Section Notes 01/18/2024 Encounter for screening colonoscopy (ICD-10 - Z12.11) 01/18/2024 Colon polyps (ICD-10 - K63.5) Plan Of Treatment Future Test Test Name Order Date COLONOSCOPY 12/12/2023 Insurance Providers Payer Name Payer Address Payer Phone Subscriber Number Group Number Insured Name Patient Relationship to Insured Coverage Start Date Coverage End Date [employer] [address] [address] [place] [address] [id number] SUE MOURA Self - patient is the insured Medical (General) History Medical History History ICD Code Inflammatory arthritis Lactose intolerance Elevated BMI Surgical History Surgery Date(Month/Year) Cholecystectomy 1992
--- OUTSIDE RECORDS SUMMARY | 2024-12-21 11:51 | XMS_ITS ---
Author Organization [facility] Address [address] [place] [address] Care Team Providers Care Chicken Hatchery Helper Name Role Phone MI MIRANDA M.D. Primary Care Provider Billy Giron Jr Unavailable [phone] Allergies Allergen (clinical drug ingredient) Drug/Non Drug Allergy documented on EMR Reaction Allergy Type Onset Date Status Dust Mites Unknown Allergy Active seasonal (uncoded) Unknown Allergy A ctive REASON FOR VISIT Patient presents today for a screening colonoscopy Medications Medication SIG (Take, Route, Frequency, Duration) Notes Start Date End Date Status MiraLax (colon prep) 17 GM/SCOOP mixed with Gatorade or Crystal Light Orally begin at 5:00 p.m. the day before the procedure for 1 day 12/12/2023 Active Cholestyramine Light 4 GM Oral for 30 Active Hydroxychloroquine Sulfate 2 00 MG Oral for 30 Active Social History Tobacco Use: Social History Observation [...] Problem Status W/U Status Risk Notes Problem 356668965 Colon cancer screening (Z12.11) Active confirmed Problem 617378404 Encounter for other preprocedural examination (Z01.818) Active confirmed Problem 755569172 Loose stools (R19.5) Active confirmed Vital Signs Temperature 97.5 degrees Fahrenheit 12/12/19 24 Blood pressure systolic 000 mm Hg 12/12/19 24 Blood pressure diastolic 00 mm Hg 024 Height 5 ft 10 in in 12/12/2023 Weight 315 lb 6 oz lbs 12/12/2023 BMI 45.25 kg/m2 12/12/2023 Encounters Encounter Location Date Provider Diagnosis [facility] [address] [place] [address] 12/12/2023 Billy Castellanos Jr Colon cancer screening Z12.11 and Loose stools R19.5 Assessments Encounter Date Diagnosis (ICD Code) Assessment Notes Treatment Notes Treatment Clinical Notes Section Notes 12/12/2023 Colon cancer screening (ICD-10 - Z12.11) Colonoscopy material was printed We discussed lactose intolerance and postcholecystectomy diarrhea today. We recommended he continue cholestyramine. We discussed colonoscopy today. We discussed risks and benefits of the procedure today. He understands these and agrees to proceed. This will be scheduled at his convenience. 12/12/2023 Loose stools (ICD-10 - R19.5) We discussed lactose intolerance and postcholecystectomy diarrhea today. We recommended he continue cholestyramine. We discussed colonoscopy today. We discussed risks and benefits of the procedure today. He understands these and agrees to proceed. This will be scheduled at his convenience. Plan Of Treatment Medication Medication Name Sig Start Date Stop [...] Up: 1 Year, Reason: Progress Notes * SUE MOURADOB:[birth year] (53 yo M)Acc No.[id number]:12/12/2023 Progress Notes Patient:?SUE MOURA Provider:?Billy Castellanos MD :1970???Age:53 Y???Sex:Male John e:12/12/2023 Address:[address] [place] [address] [address] , [place], [id number] Pcp:MI MIRANDA M.D. Subjective: * Chief Complaints: * ???1. Patient presents today for a screening colonoscopy. * HPI: ???New symptom(s):? 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 He said chronically loose stools since his gallbladder surgery in 1992. He also reports lactose intolerance. He is being treated with cholestyramine for his loose stools. He finds this helps. * ROS:?General/Constitutional:?Change in appetite?denies.?Fatigue?denies.?ENT:?Patient denies?difficulty swallowing.?Respiratory:?Patient denies?shortness of breath.?Cardiovascular:?Patient denies?chest pain.?Gastrointestinal:?Comments?See HPI for details.?Genitourinary:?Difficulty urinating?denies.?Incontinence?denies.?Musculoskeletal:?Patient denies?muscle aches.?Skin:?Patient denies?pruritis.?Neurologic:?Patient denies?low back pain.?Psychiatric:?Patient denies?mental or physical abuse.? * Medical History:?Inflammator y arthritis, Lactose intolerance, Elevated BMI. * Surgical History:?Cholecyste ctomy 1992. * Family History:?Father: dece ased.?Mother: .? No family history of colon cancer or liver cancer. * Social History:?Tobacco Use:?Tobacco Use/Smoking?Patient is a?former smoker.?Drugs/Alcohol:?Alcohol Screen?Did you have a drink containing alcohol in the past year??Yes,?How often did you have a drink containing alcohol in the past year??2 to 4 times a month (2 points),?How many drinks did you have on a typical day when you were drinking in the past year??3 or 4 drinks (1 point),?How often did you have 6 or more drinks on one occasion in the past year??Never (0 point),?Points?3,?Interpretation?Negative.?Miscellaneous:?Marital status: single. 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 * Medications:?Taking Hydroxyc hloroquine Sulfate 200 MG Tablet Oral , Taking Cholestyramine Light 4 GM Packet Oral , Medication List reviewed and reconciled with the patient * Allergies:?seasonal, Dust Mi fatimah. Objective: * Vitals:?Wt: 315 lb 6 oz, Ht: 5 ft 10 in, BMI:45.25 Index, BP: 000/00 mm Hg, Temp: 97.5. * Examination: ???General Examination: ?GENERAL APPEARANCE:?in no acute distress.?HEAD:?normocephalic.?EYES:?sclera non-icteric.?ORAL CAVITY:?mucosa moist.?NECK/THYROID:?no lymphadenopathy.?SKIN:?anicteric.?HEART:?S1, S2 normal, no murmurs.?LUNGS:?clear to auscultation bilaterally.?CHEST:?normal shape and expansion.?ABDOMEN:?soft, nontender, nondistended, bowel sounds present, no organomegaly .?EXTREMITIES:?no clubbing, cyanosis, or edema. He ambulates with a cane.?PSYCH:?cognitive function intact.? Assessment: * Assessment: 1.?Loose stools - R19.5 (Johanna adeline)?2.?Colon cancer screening - Z12.11? We discussed lactose intoler ance and postcholecystectomy diarrhea today. We recommended he continue cholestyramine. We discussed colonoscopy today. We discussed risks and benefits of the procedure today. He understands these and agrees to proceed. This will be scheduled at his convenience. Plan: * Treatment: Notes: Colonoscopy material was printed?? * Procedure Codes:?3017F COLOR ECTAL CA SCREEN DOC REV, G9903 Pt scrn tbco id as non user, G9745 DOC RSN FOR NOT SCREEN/REC F/U HBP * Preventive Medicine:? ??Counseling:?Care goal follow-up plan:?Above Normal BMI Follow-up?Giving encouragement to exercise,?BMI management provided?Yes.? 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 He said chronically loose stools since his gallbladder surgery in 1992. He also reports lactose intolerance. He is being treated with cholestyramine for his loose stools. He finds this helps. Examination Category Sub-Category Detail Notes Category Not es General Examination GENERAL APPEARANCE: in no acute di stress HEAD: normocephalic EYES: sclera non-icteric NECK/THYROID: no [...]
--- OUTSIDE RECORDS SUMMARY | 2024-12-21 11:51 | XMS_ITS | Clinical Summary ---
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 Report response. Avoid trigger foods. Joint pain, knee 11/16/2017 Allergic rhinitis 11/16/2017 Overview (09/11/2023): Impression - 89Qho9638: Continue otc meds prn. Tongue coating 11/16/2017 Overview (09/11/2023): Impression - 24Rtt7471: Culture obtained. Try nystatin suspension. See dentist. Will call with results. Impression - 10Daj6098: Advised to see Dentist. Obesity 02/19/2011 Overview (09/11/2023): Impression - 97Txk8348: Encouraged healthy eating, regular exercise for weight [...] Time utilized. FASTING: YES Testing Performed at: [facility], [address] [place] [address], , Tire Repairer: Fazrana Camargo MD CL#[id number] Usha Goldberg [facility] Final Result PHCT CONVERSIONS from Last 3 Months or Most Recently Relevant to Health Maintenance Care Teams Creeler Relationship Specialty Start Date End Date Usha Goldberg APRN [address] [place] [address] PCP - General 03/14/23 Usha Goldberg APRN [address] [place] [address] PCP - Backup PCP Internal Medicine 09/08/23
--- OUTSIDE RECORDS SUMMARY | 2024-12-21 11:51 | XMS_ITS ---
Author Organization [facility] Address [address] [place] [address] Care Team Providers Care Enterprise Architect Manager Name Role Phone MI MIRANDA M.D. Primary Care Provider Nichole vailable Billy Castellanos Jr Unavailable REASON FOR VISIT pathology Encounters Encounter Location Date Provider Diagnosis [facility] [address] [place] [phone] 01/23/2024 Billy Castellanos Jr Plan Of Treatment No Information Progress Notes * SUE MOURADOB:[birth year] (53 yo M)Acc No.[id number]:01/23/2024 Patient:?SUE MOURA :1970???Age:53 Y???Sex:Male Address:[address] [place] [address], [place], [address] * true * Date:? Generated for Printi ng/Fajavierg/eTransmitting on:?12/21/2024 11:51 AM EDT
--- OUTSIDE RECORDS SUMMARY | 2024-12-21 11:51 | XMS_ITS ---
Author Organization [facility] Address [address] [place] [address] Care Team Providers Care Shop And Alteration Tailor Name Role Phone RUTH [place], [place] Primary Care Provider Nichole Billy Mitchell Jr REASON FOR VISIT screening Encounters Encounter Location Date Provider Diagnosis [facility] [place] [place] Out[place] [address] [place] [phone] 01/18/2024 Billy Castellanos Jr Encounter for screening colonoscopy Z12.11 and Colon polyps K63.5 Assessments Encounter Date Diagnosis (ICD Code) Assessment Notes Treatment Notes Treatment Clinical Notes Section Notes 01/18/2024 Encounter for screening colonoscopy (ICD-10 - Z12.11) 01/18/2024 Colon polyps (ICD-10 - K63.5) Plan Of Treatment No Information Progress Notes * SUE MOURADOB:[birth year] (54 yo M)Acc No.[id number]:01/18/2024 COLON WITH MAC Patient:?STACY MOURAEW Provider:?Billy Castellanos MD :1970???Age:53 Y???Sex:Male John e:01/18/2024 Address:[address] [place] [address] Pcp:MI MIRANDA M.D. Subjective: * Chief Complaints: * ???1. Screening. * Medical History:? Objective: * Vitals:? Assessment: * Assessment: 1.?Encounter for screening c olonoscopy - Z12.11 (Primary)???2.?Colon polyps - K63.5??? Plan: * Treatment: * Procedure Codes:?02505 COLON OSCOPY AND BIOPSY * * The named appointment provid er may or may not be the originator of this progress note, and it is not deemed complete until electronically signed by the appointment provider. Sign off status: Pending * Provider:?Billy Castellanos MD Date:?0 01/18/2024 Generated for Belkis kapadia/Germaine/Rajan on:?12/21/2024 11:51 AM EDT
[2024-12-21 13:44] LABS: H Pylori Breath Test Negative (Negative)
== END 2024-12-18 08:41 | disposition home or self-care (01) ==
LOC: HO.LNP 08:40
PROVIDERS: Visit Provider Nurse Practitioner
DX: R10.13 Epigastric pain (principal)
CPT/HCPCS: 83013

== ENCOUNTER 2025-04-11 07:38 | Outpatient (REF) | payer OTHER, SELFPAY ==
--- OUTSIDE RECORDS SUMMARY | 2023-11-28 05:20 | XMS_ITS ---
Author Organization [facility] Address [address] [place] [phone] Care Team Providers Care Environmental Planner Name Role Phone RUTH Richards, [place] Primary Care Provider Nichole Billy Mitchell Jr REASON FOR VISIT screening colonoscopy Encounters Encounter Location Date Provider Diagnosis [facility] [address] [place] [phone] 11/28/2023 Billy Castellanos Jr Plan Of Treatment No Information Progress Notes * SUE MOURADOB:[birth year] (54 yo M)Acc No.[id number]:11/28/2023 Progress Notes Patient: SUE DONAHUE Provider: Trevor Castellanos MD :1970 A ge:53 Y S ex:Male Date:11/28/2023 Address:[address] [place], [place] [id number] Pcp:MI MIRANDA M.D. Subjective: * Chief Complaints: * 1 . Screening colonoscopy. * Medical History: Objective: * Vitals: Assessment: Plan: * Treatment: * * The named appointment provid er may or may not be the originator of this progress note, and it is not deemed complete until electronically signed by the appointment provider. Sign off status: Pending * Provider: Trevor Castellanos MD Date: 0 11/28/2023 Generated for Printi ng/Faxing/eTransmitting on: 0 04/11/2025 07:42 AM EDT
--- OUTSIDE RECORDS SUMMARY | 2024-01-18 09:00 | XMS_ITS ---
Author Organization [facility] Address [address] [place] [phone] Care Team Providers Care Horse Race Starter Name Role Phone RUTH [place], [place] Primary Care Provider Billy Giron Jr Unavailable REASON FOR VISIT screening Encounters Encounter Location Date Provider Diagnosis [facility] [place] [address] [place] [id number] 01/18/2024 Billy Castellanos Jr Encounter for screening colonoscopy Z12.11 and Colon polyps K63.5 Assessments Encounter Date Diagnosis (ICD Code) Assessment Notes Treatment Notes Treatment Clinical Notes Section Notes 01/18/2024 Encounter for screening colonoscopy (ICD-10 - Z12.11) 01/18/2024 Colon polyps (ICD-10 - K63.5) Plan Of Treatment No Information Progress Notes * SUE MOURADOB:[birth year] (54 yo M)Acc No.[id number]:01/18/2024 COLON WITH MAC Patient: SUE DONAHUE Provider: Trevor Castellanos MD :1970 A ge:53 Y S ex:Male Date:01/18/2024 Address:[address] [place] [address] Pcp:MI MIRANDA M.D. Subjective: * Chief Complaints: * 1 . Screening. * Medical History: Objective: * Vitals: Assessment: * Assessment: 1. E ncounter for screening colonoscopy - Z12.11 (Primary) 2 . C olon polyps - K63.5 Plan: * Treatment: * Procedure Codes: 4 5380 COLONOSCOPY AND BIOPSY * * The named appointment provid er may or may not be the originator of this progress note, and it is not deemed complete until electronically signed by the appointment provider. Sign off status: Pending * Provider: Trevor Castellanos MD Date: 0 01/18/2024 Generated for Belkis kapadia/Germaine/Joshuaitting on: 0 04/11/2025 07:42 AM EDT
--- OUTSIDE RECORDS SUMMARY | 2025-04-11 07:43 | XMS_ITS | Patient Health Record ---
Author Organization [facility] Address [address] [place] [address] Care Team Providers Care Laboratory Specialist Name Role Phone MI MIRANDA M.D. Primary Care Provider Nichole Billy Mitchell Jr Unavailable Allergies Allergen (clinical drug ingredient) Drug/Non Drug Allergy documented on EMR Reaction Allergy Type Onset Date Status Dust Mites Unknown Allergy Active seasonal (uncoded) Unknown Allergy A ctive Reason For Referral No Information Medications Medication [...] Problem Status W/U Status Risk Notes Problem 086552522 Colon cancer screening (Z12.11) Active confirmed Problem 795231336 Encounter for other preprocedural examination (Z01.818) Active confirmed Problem 626516782 Loose stools (R19.5) Active confirmed Plan Of Treatment Future Test Test Name Order Date COLONOSCOPY 12/12/2023 Insurance Providers Payer Name Payer Address Payer Phone Subscriber Number Group Number Insured Name Patient Relationship to Insured Coverage Start Date Coverage End Date [employer] [place] [address] [address] [place] [address] [id number] SUE MOURA Self - patient is the insured Medical (General) History Medical History History ICD Code Inflammatory arthritis Lactose intolerance Elevated BMI Surgical History Surgery Date(Month/Year) Cholecystectomy 1992
--- OUTSIDE RECORDS SUMMARY | 2025-04-11 07:43 | XMS_ITS | Clinical Summary ---
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 Report response. Avoid trigger foods. Joint pain, knee 11/16/2017 Allergic rhinitis 11/16/2017 Overview (09/11/2023): Impression - [id number]: Continue otc meds prn. Tongue coating 11/16/2017 Overview (09/11/2023): Impression - [id number]: Culture obtained. Try nystatin suspension. See dentist. Will call with results. Impression - 62Uel2505: Advised to see Dentist. Obesity 02/19/2011 Overview (09/11/2023): Impression - 32Ivm4810: Encouraged healthy eating, regular exercise for weight loss. Immunizations Immunization Administration Dates Next Due PPD/TST (Tuberculin Skin [...] 72 04/18/2018 9:08 AM EDT Temperature 37.4 C (99.4 F) 11/16/2017 11:42 AM EDT Respiratory Rate - - Oxygen Saturation - [...] COVID-19 Vaccine ( - 2023-2 5 season) 2025 Influenza (#1) 2025 PPD Discontinued 02/22/2011 LDL Cholesterol Discontinued 04/18/2018 Physical Discontinued 04/18/2018 HPV Vaccine (No Doses Required) Completed Hep A Aged Out No longer eligi [...] Time utilized. FASTING: YES Testing Performed at: [facility], [address] [place] [address], [place] [address], , Forging Die Finisher: Farzana Camargo MD CL#[id number] Usha Goldberg [facility] Final Result PHCT CONVERSIONS from Last 3 Months or Most Recently Relevant to Health Maintenance Care Teams Corporate Tutor Relationship Specialty Start Date End Date Usha Goldberg APRN [address] [facility] [address] [place] [address] PCP - General 03/14/23 Usha Goldberg APRN [address] [place] [address] PCP - Backup PCP Internal Medicine 09/08/23
[2025-04-11 08:48] LABS: Hemoglobin A1C 128.2537 umol/L; Total Hemoglobin (HGBA1C) 3571.6171 umol/L
[2025-04-11 09:15] LABS: Alanine Aminotransferase 55 U/L (0-40); Albumin Level 4.5 g/dL (3.5-5.0); Alkaline Phosphatase 52 U/L (39-117); Anion Gap 14 (12-20); Aspartate Amino Transferase 45 U/L (5-37); Blood Urea Nitrogen 12 mg/dL (9-16); Calcium 9.4 mg/dL (8.4-10.2); Carbon Dioxide 24 mmol/L (22-29); Chloride 108 mmol/L (96-108); Estimated Glomerular Filt Rate > 60; Potassium 3.6 mmol/L (3.3-5.1); Sodium 142 mmol/L (135-145); Total Protein 7.7 g/dL (6.5-8.0)
[2025-04-11 09:31] LABS: Thyroid Stimulating Hormone 1.92 uIU/mL (0.32-4.0)
== END 2025-04-11 07:39 | disposition home or self-care (01) ==
LOC: HO.LAB 07:38
PROVIDERS: Absent Provider Student in an Organized Health Care Education/Training Program; PCP Nurse Practitioner; Referring Provider Student in an Organized Health Care Education/Training Program; Visit Provider Nurse Practitioner
DX: R74.8 Abnormal levels of other serum enzymes (principal); R73.01 Impaired fasting glucose; Z51.81 Encounter for therapeutic drug level monitoring; Z13.29 Encounter for screening for other suspected endocrine disorder
CPT/HCPCS: 36415; 80053; 83036; 84443

== ENCOUNTER 2025-04-23 06:21 | Outpatient (REF) | payer OTHER, SELFPAY ==
--- OUTSIDE RECORDS SUMMARY | 2023-11-28 05:20 | XMS_ITS ---
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 Name Role Phone RUTH [place], [place] Primary Care Provider Nichole Billy Mitchell Jr REASON FOR VISIT screening colonoscopy Encounters Encounter Location Date Provider Diagnosis [facility] [address] [place] [phone] 11/28/2023 Billy Castellanos Jr Plan Of Treatment No Information Progress Notes * SUE MOURADOB:[birth year] (54 yo M)Acc No.[id number]:11/28/2023 Progress Notes Patient: SUE DONAHUE Provider: Trevor Castellanos MD :1970 A ge:53 Y S ex:Male Date:11/28/2023 Address:[address] [place], [place] [id number] Pcp:MI MIRANDA M.D. Subjective: * Chief Complaints: [...] 11/28/2023 Generated for Printi ng/Faxing/eTransmitting on: 0 04/23/2025 06:23 AM EDT
--- OUTSIDE RECORDS SUMMARY | 2024-01-18 09:00 | XMS_ITS ---
Author Organization [facility] Address [address] [place] [phone] Care Team Providers Care Animal Impersonator Name Role Phone RUTH [place], [place] Primary Care Provider Billy Giron Jr Unavailable REASON FOR VISIT screening Encounters Encounter Location Date Provider Diagnosis [facility] [place] [address] [place] [id number] 01/18/2024 Billy Castellanos Jr Encounter for screening colonoscopy Z12.11 and Colon polyps K63.5 Assessments Encounter Date Diagnosis (ICD Code) Assessment Notes Treatment Notes Treatment Clinical Notes Section Notes 01/18/2024 Encounter for screening colonoscopy (ICD-10 - Z12.11) 01/18/2024 Colon polyps (ICD-10 - K63.5) Plan Of Treatment No Information Progress Notes * SUE MOURADOB:[birth year] (54 yo M)Acc No.[id number]:01/18/2024 COLON WITH MAC Patient: SUE DONAHUE Provider: Trevor Castellanos MD :1970 A ge:53 Y S ex:Male Date:01/18/2024 Address:[address] [place] [address] Pcp:MI MIRANDA M.D. Subjective: * Chief Complaints: [...] 01/18/2024 Generated for Belkis kapadia/Germaine/Joshuaitting on: 0 04/23/2025 06:23 AM EDT
--- NOTE | ~2025-04-23 | FL_ITS ---
EXAMINATION: FL GUIDANCE ONLY HISTORY: M54.16 - Radiculopathy, lumbar region COMPARISON: None available. TECHNIQUE: Fluoroscopy time: 0.6 minutes. Cumulative Dose: 38.8 mGy. DAP: 0.608 mGym2 Images: 1. FINDINGS: A single fluoroscopic spot film of the lower lumbar spine in the AP projection demonstrates a needle and contrast material in the region of the right L5-S1 facet joint. FL/FL guidance in treatment room IMPRESSION: Fluoroscopy during procedure. Please see procedure report for additional information. Electronically signed by: Skyler Jacome MD 04/23/2025 12:15 PM EDT
--- OUTSIDE RECORDS SUMMARY | 2025-04-23 06:24 | XMS_ITS | Patient Health Record ---
Author Organization [facility] Address [address] [place] [address] Care Team Providers Care Supervisor Audit Clerks Name Role Phone [place] MIRANDA M.D. Primary Care Provider Nichole caleb Castellanos Jr Billy Unavailable Allergies Allergen (clinical drug ingredient) Drug/Non [...] Problem Status W/U Status Risk Notes Problem [id number] Colon cancer screening (Z12.11) Active confirmed Problem 666545701 Encounter for other preprocedural examination (Z01.818) Active confirmed Problem 166816604 Loose stools (R19.5) Active confirmed Plan Of Treatment Future Test Test Name Order Date COLONOSCOPY 12/12/2023 Insurance Providers Payer Name Payer Address Payer Phone Subscriber Number Group Number Insured Name Patient Relationship to Insured Coverage Start Date Coverage End Date [employer] [place] [address] [address] [place] [address] [id number] SUE MOURA Self - patient is the insured Medical (General) History Medical History History ICD Code Inflammatory arthritis Lactose intolerance Elevated BMI Surgical History Surgery Date(Month/Year) Cholecystectomy 1992
--- OUTSIDE RECORDS SUMMARY | 2025-04-23 06:24 | XMS_ITS ---
Author Organization Unknown ENCOUNTERS Encounter Performer Location Date Diagnosis Diagnosis Status Pre Admit [facility] [address] [id number] Outpatient [facility] [address] [id number] ROSE MARIE Pre Admit [facility] [address] [address] [id number] Outpatient [facility] [address] [address] [id number] ROSE MARIE Emergency [address] [id number] ROSE MARIE *Note: Encounters from your own facility or health system may be excluded. Allergies, Adverse Reactions, Alerts Allergen Type Severity Identification Date Seasonal Allergies propensity to advers e reactions 20201111 animal dander drug allergy 3 [id number] mite-Dermatophagoides farinae, chau drug allergy 3 31199088 Unable to Assess drug allergy [id number] Medications Name Date Quantity Days Supplied GPI Number
--- OUTSIDE RECORDS SUMMARY | 2025-04-23 06:24 | XMS_ITS | Clinical Summary ---
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 Report response. Avoid trigger foods. Joint pain, knee 11/16/2017 Allergic rhinitis 11/16/2017 Overview (09/11/2023): Impression - 99Tup3393: Continue otc meds prn. Tongue coating 11/16/2017 Overview (09/11/2023): Impression - 40Ify1525: Culture obtained. Try nystatin suspension. See dentist. Will call with results. Impression - [id number]: Advised to see Dentist. Obesity 02/19/2011 Overview (09/11/2023): Impression - 83Jhs9876: Encouraged healthy eating, regular exercise for weight [...] Time utilized. FASTING: YES Testing Performed at: [facility], [address] [place] [address], [place] [address], , Heavy Equipment Service Technician: Farzana Camargo MD CL#[id number] Usha Goldberg [facility] Final Result PHCT CONVERSIONS from Last 3 Months or Most Recently Relevant to Health Maintenance Care Teams Railroad Car Repair Supervisor Relationship Specialty Start Date End Date Usha Goldberg APRN [address] [facility] [address] [place] [address] PCP - General 03/14/23 Usha Goldberg APRN [address] [place] [address] PCP - Backup PCP Internal Medicine 09/08/23
== END 2025-04-23 06:22 | disposition home or self-care (01) ==
LOC: CF 06:21
PROVIDERS: Visit Provider Anesthesiology
DX: M54.16 Radiculopathy, lumbar region (principal)
CPT/HCPCS: 64483; J2003; J3301; Q9967

== ENCOUNTER 2025-04-23 08:56 | Outpatient (AMB) | payer OTHER, SELFPAY ==
[2025-04-23 09:06] VITALS: BP 120/78; PULSE 94; RESP 18; O2SAT 95; BMI 39.6
--- NOTE | 2025-04-23 09:06 | A.OFFVIS_ITS ---
Vital Signs 04/23/25 09:06 Height 5 ft 10 in Weight 276 lb BMI 39.6 BP 120/78 Blood Pressure Location Lt brachial Position Sitting Respiration 18 Pulse 94 Pulse Source Pulse Oximeter Pulse Oximetry (%) 95 Oxygen Delivery Method Room Air Intake Visit Reasons: RIGHT L5, S1 TFESI Validation Consultant Required: No Allergies animal dander Allergy (Intermediate, Verified 09/27/24 11:38) Itchy Eyes mite-Dermatophagoides farinae, chau (dust mite - [place]) Allergy (Intermediate, Verified 09/27/24 11:38) Unknown Seasonal Allergies Allergy (Intermediate, Verified 09/27/24 11:38) Itchy Eyes PFSH Medical History Tubular adenoma of colon Personal history of nicotine dependence GERD (gastroesophageal reflux disease) Hx of fracture of skull (~1975) Lactose intolerance Arthritis Pain in joint, multiple sites Morbid obesity Surgical History History of lumbar discectomy History of colonoscopy History of wisdom tooth extraction History of cholecystectomy (~1994) Family History Maternal Grandmother Dementia Mother Osteoarthritis Ankylosing spondylitis Aortic aneurysm Maternal Grandfather Lung tumor Father Pancreatic cancer Social History Household Members: None Housing: Condominium Are you a primary customer care manager to a significant other at home: No Do you presently have visiting nurse or other home services: No Alcohol intake: current Alcohol intake frequency: holidays/special occasions only Patient Tobacco Use Status: Former Tobacco user Tobacco use type: Cigarette Years Smoked: (onset 18yo, 1-2ppd x 21yrs, 30PYH - quit 2009) Second Hand Smoke Exposure: No service: No Current occupational status: employed 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 Informed consent was thoroughly explained to the patient before the procedure.? The patient came to the operating room.? He was positioned prone on operating table with a pillow under his abdomen.? Time-out was performed delineating correct site and side of the procedure, nature of the injection, name and date of of the patient. The lower back of the patient was prepped with ChloraPrep and draped with sterile utility towels.? C-arm was brought over the operating field and sq picture of L5 was demonstrated on the screen.? The right side was chosen as the side of the injection.? Tilting machine ipsilateral to the right at the level of L5 1st the most prominent picture of the right pedicle was obtained on the screen.? 3 mm below the level of the lowest point of the pedicle projection to the skin small amount of lidocaine 1% 3-4 cc was injected to anesthetize the skin.? After that 5 in 22 gauge Quincke point needle was inserted through the skin wheal and was advanced toward the L5-S1 foramina on anterior posterior , lateral and oblique views intermittently.? Multiple attempts to reach proper needle positioned was made because the patient developed extensive spurs . When needle reached appropriate position injection of the contrast was performed delineating epidural and perineural spread of the contrast. No intravascular no intraneural and no intrathecal spread of the contrast was noted. After that injection of the 3 cc of lidocaine 1% mixed with Kenalog 40 mg was performed into the needle. Upon completion of the injection needle was removed . Upon completion of the procedure needle was removed, sterile Band-Aid was applied. Patient tolerated the procedure well. Orders: Orders FL guidance in treatment room Today M54.16 - Radiculopathy, lumbar region Coding Level of Care Code Procedure Only Diagnoses Lumbar radiculopathy M54.16
== END 2025-04-23 09:51 | disposition home or self-care (01) ==
LOC: HO.PMCPRC 08:56
PROVIDERS: PCP Nurse Practitioner; Visit Provider Anesthesiology
DX: M54.16 Radiculopathy, lumbar region (principal)
CPT/HCPCS: 64483

== ENCOUNTER 2025-05-21 09:22 | Outpatient (AMB) | payer OTHER, SELFPAY ==
--- OUTSIDE RECORDS SUMMARY | 2023-11-28 05:20 | XMS_ITS ---
Author Organization [facility] Address [address] [place] [phone] Care Team Providers Care Job Putter Up And Ticket Preparer Name Role Phone RUHT Richards, [place] Primary Care Provider Nichole Billy Mitchell Jr REASON FOR VISIT screening colonoscopy Encounters Encounter Location Date Provider Diagnosis [facility] [address] [place] [phone] 11/28/2023 Billy Castellanos Jr Plan Of Treatment No Information Progress Notes * SUE MOURADOB:[birth year] (54 yo M)Acc No.[id number]:11/28/2023 Progress Notes Patient: SUE DONAHUE Provider: Trevor Castellanos MD :1970 A ge:53 Y S ex:Male Date:11/28/2023 Address:[address] [place], [place] [id number] Pcp:MI MIRANDA M.D. Subjective: * Chief Complaints: [...] 0 11/28/2023 Generated for Printi ng/Faxing/eTransmitting on: 1 10:14 AM EDT
--- OUTSIDE RECORDS SUMMARY | 2024-01-18 09:00 | XMS_ITS ---
Author Organization [facility] Address [address] [place] [phone] Care Team Providers Care Public Works Inspector Name Role Phone RUTH [place], [place] Primary Care Provider Billy Giron Jr Unavailable [phone] REASON FOR VISIT screening Encounters Encounter Location Date Provider Diagnosis [facility] [place] Out[facility] [address] [place] [id number] 01/18/2024 Billy Castellanos Jr Encounter for screening colonoscopy Z12.11 and Colon polyps K63.5 Assessments Encounter Date Diagnosis (ICD Code) Assessment Notes Treatment Notes Treatment Clinical Notes Section Notes 01/18/2024 Encounter for screening colonoscopy (ICD-10 - Z12.11) 01/18/2024 Colon polyps (ICD-10 - K63.5) Plan Of Treatment No Information Progress Notes * SUE MOURADOB:[birth year] (54 yo M)Acc No.[id number]:01/18/2024 COLON WITH MAC Patient: SUE DONAHUE Provider: Trevor Castellanos MD :1970 A ge:53 Y S ex:Male Date:01/18/2024 Address:[address] [place] [address] Pcp:MI MIRANDA M.D. Subjective: * Chief Complaints: [...] 0 01/18/2024 Generated for Belkis kapadia/Germaine/Joshuaitting on: 1 10:14 AM EDT
--- NOTE | 2025-05-21 09:24 | MHC.OFFVIS ---
Vital Signs 05/21/25 09:27 Height 5 ft 10 in Weight 277 lb 2 oz BMI 39.8 BP 143/72 H Blood Pressure Location Lt brachial Position Sitting Pulse 81 Pulse Source Pulse Oximeter Pulse Oximetry (%) 97 Oxygen Delivery Method Room Air Intake Visit Reasons: S/P RIGHT L5, S1 TFESI Intake Note: Pain today 2/10 Laboratory Director Required: No Accompanied by: Self / Same As Patient Allergies animal dander Allergy (Intermediate, Verified 05/21/25 09:27) Itchy Eyes mite-Dermatophagoides farinae, chau (dust mite - [place]) Allergy (Intermediate, Verified 05/21/25 09:27) Unknown Seasonal Allergies Allergy (Intermediate, Verified 05/21/25 09:27) Itchy Eyes HPI Comments Details: The patient is a 54-year-old male presenting with a one month follow-up after a repeat right L5-S1 transforaminal epidural steroid injection. He has a history of chronic back pain, right sided radiculopathy and previous L5-S1 discectomy. The patient reports significant improvement in pain levels, with an 80% reduction in pain following the recent injection, and his current pain level is 2/10. He has experienced improvements in daily activities, mobility, sleep, and social activities The patient is also managing morbid obesity, with a current BMI of 39.8. He has been actively losing weight, reducing from 333 pounds in August to 277 pounds currently. He is on a medication regimen that includes Zepbound, which has caused constipation as a side effect. Additionally, the patient reports having bronchitis but denies fever and is not currently on antibiotics. Denies any other significant changes in medical history since last office visit. Past Procedures: 04/23/25: Right L5-S1 TFEFSI-80% ongoing pain relief 09/11/24: Right L5-S1 TFESI-80% ongoing pain relief PRIOR: Patient is a pleasant 53 years old male with history of chronic low back pain s/p L5-S1 diskectomy, morbid obesity, arthritis, presents today for initial evaluation for lower back pain with right sided radiculopathy. Denies any recent trauma, injury or falls. Back pain is axial, discogenic and also radiates into his right buttock and lateral calf with tingling in his big toe. Pain is present with activity and less severe with rest or walking. He was evaluated by [facility] and offered a right L5-S1 facetectomy. Patient is interested in therapeutic DANICA injection prior to consideration of additional back surgery. He is currently active with PT and home exercise and has tried oral medications, including opioids, muscle relaxants, prednisone, NSAIDs, gabapentin and Cymbalta for symptomatic relief with continued pain and decreased functioning. Pain affects his daily activities and functioning, mood, sleep, social interactions and quality of life. 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 Denies any fever or chills, abdominal or groin pain, weakness, foot drop, bladder or bowel dysfunction or saddle anesthesia. Oswestry Low Back Pain Disability Score=21 (moderate disability) [facility] 08/17/24 Dr. Harvey: On 08/16/2024, I saw for follow-up Suresh Anand. He is status post L5-S1 diskectomy, extraforaminal approach for right lumbar radiculopathy. This surgery only helpful 1 month after the pain returned in all severity. The pain radiates in an L5 dermatome. A repeat MRI shows ongoing compression, most likely from a bone spur as it was not able to retrieve any disc fragments during surgery. He is debilitated and can not work. I offered him a right L5-S1 facetectomy with posterior instrumentation to provide maximum room for the nerve root. He will see pain management 1st before we see the doing this. He will contact my office to let us know if pain management have any other options then my surgery. Location: Lower back radiates down into right leg posteriorly Duration: Chronic pain, worsening since January 2024 Characteristics of symptom or complaint: Sharp, stabbing, burning, tightness, pressure, tingling, radiating Aggravating or associated factors: Standing, bending, ROM, squatting, movements, lifting Relieving factors: PT, walking, gabapentin, oxycodone, Cymbalata, diclofenac, methocarbamol Treatment: Active PTx9, chiropractic, acupuncture, TENS unit, MRI, Neurosurgery eval [facility] Medical History Tubular adenoma of colon Personal history of nicotine dependence GERD (gastroesophageal reflux disease) Hx of fracture of skull (~1975) Lactose intolerance Arthritis Pain in joint, multiple sites Morbid obesity Surgical History History of lumbar discectomy History of colonoscopy History of wisdom tooth extraction History of cholecystectomy (~1994) Family History Maternal Grandmother Dementia Mother Osteoarthritis Ankylosing spondylitis Aortic aneurysm Maternal Grandfather Lung tumor Father Pancreatic cancer Social History Household Members: None [facility] Are you a primary rn palliative care to a significant other at home: No Do you presently have visiting nurse or other home services: No Alcohol intake: current Alcohol intake frequency: holidays/special occasions only Patient Tobacco Use Status: Former Tobacco user Tobacco use type: Cigarette Years Smoked: (onset 18yo, 1-2ppd x 21yrs, 30PYH - quit 2009) Second Hand Smoke Exposure: No service: No Current occupational status: employed 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 Alert and oriented. Mood and affect appropriate. Follows and participates in conversation appropriately. Respiratory effort is unlabored. No cough. Able to transition from sit to stand unassisted. Ambulates with bilaterally normal heel strike and toe off. Back/Spine/Pelvis Cervical Spine: cervical ROM normal and Cervical spine tenderness Thoracic/Lumbar Spine: thoracic and lumbar spine normal to inspection, Thoracic/lumbar spine scar(s), pain with thoraco-lumbar ROM (mild), paraspinal muscle tenderness on the right greater than left, thoraco-lumbar ROM limited, No thoracic spinal tenderness and lumbar spinal tenderness (L4-S1) Sacroiliac joints: on the right tender to palpation and on the left nontender Results Reviewed Results Reviewed: MR LUMBAR SPINE WITHOUT AND WITH CONTRAST 07/25/24 CLINICAL INFORMATION: Radiculopathy, lumbar region COMPARISON: MR lumbar spine on 04/16/2024 TECHNIQUE: MRI of the lumbar spine was obtained using routine sequences with and without contrast. Intravenous contrast: Gadavist 10 mL FINDINGS: Mild retrolisthesis at L5-S1. Redemonstration of T1 and T2 hypointense lesion involving the L3 inferior endplate with associated STIR hyperintensity and enhancement likely representing acute to subacute Schmorl's node. No other sites of abnormal bone marrow signal. The vertebral body heights are preserved. Multilevel disc desiccation with moderate disc height loss at L5-S1. Type II endplate changes at L3-4, L4-5, and L5-S1. Multilevel endplate osteophytosis. The visualized spinal cord is normal in caliber. There is edema and enhancement of the right exiting L5 nerve roots compatible with compressive neuritis. No other site of abnormal cord signal or enhancement. The conus medullaris terminates at L1-2. T12-L1: No significant spinal canal or neural foraminal narrowing. L1-2: Shallow disc bulge with superimposed central extrusion migrating superiorly, unchanged. No significant spinal canal or neural foraminal narrowing. L2-3: Shallow disc bulge with tiny central disc extrusion migrating superiorly, unchanged. No significant spinal canal stenosis. Mild bilateral neural foraminal narrowing, unchanged. L3-4: Shallow disc bulge with superimposed annular fissure. Bilateral facet arthrosis. No significant spinal canal stenosis. Moderate left greater than right neural foraminal narrowing with the disc abutting the exiting L3 nerve roots bilaterally, unchanged. L4-5: Shallow disc bulge with superimposed annular fissure. Bilateral facet arthrosis. No significant spinal canal stenosis. Moderate left greater than right neural foraminal narrowing with mass effect on the exiting L4 nerve roots bilaterally, unchanged. L5-S1: Diffuse disc bulge with superimposed right subarticular disc protrusion. Bilateral facet arthrosis. There is new extensive edema and enhancement surrounding the right facet joint. No significant spinal canal stenosis. Severe right and mild left neural foraminal narrowing with impingement of the right exiting L5 nerve roots. The right exiting L5 nerve roots continue to demonstrate edema and enhancement. The paravertebral soft tissues are unremarkable. IMPRESSION: -Multilevel lumbar spondylosis as described above without significant spinal canal stenosis. -Neural foraminal narrowing is worst and severe on the right at L5-S1 with impingement of the right exiting L5 nerve roots. There is edema and enhancement of the right exiting L5 nerve roots compatible with compressive neuritis. Additionally, there is new extensive edema and enhancement surrounding the right facet joint at this level compatible with reactive changes. Assessment & Plan Assessment & Plan (1) Lumbar radiculopathy: Code(s): M54.16 - Radiculopathy, lumbar region Category: Medical (2) Lumbar degenerative disc disease: Code(s): M51.369 - Other intervertebral disc degeneration, lumbar region without mention of lumbar back pain or lower extremity pain Category: Medical (3) Lumbosacral spondylosis: Code(s): M47.817 - Spondylosis without myelopathy or radiculopathy, lumbosacral region Category: Medical (4) Neuroforaminal stenosis of lumbosacral spine: Code(s): M48.07 - Spinal stenosis, lumbosacral region Category: Medical Plan The plan includes continuing with the current pain management strategy, which has been effective in providing significant relief. The patient is advised to maintain his weight loss efforts, as this contributes positively to his overall health and pain management. It is recommended to limit the number of epidural steroid injections for symptomatic relief to one or two per year to avoid potential adverse effects. The patient should consider non-surgical options such as physical therapy to manage back pain and support core strength, flexibility and improve ROM. Surgical re-evaluation is suggested for potential right L5-S1 facetectomy with posterior instrumentation per previous [facility] visit if conservative measures fail and symptoms worsen. Follow-up evaluations will be necessary to monitor the patient's progress and adjust the treatment plan as needed. Patient was informed and verbally consented to the use of an ambient scribe for clinic note documentation during this visit. Coding Level of Care Code Est Pt Level 3 (22636) Complex EM visit Add On G2211 Diagnoses Lumbar radiculopathy M54.16 Lumbar degenerative disc disease M51.369 Lumbosacral spondylosis M47.817 Neuroforaminal stenosis of lumbosacral spine M48.07
[2025-05-21 09:27] VITALS: BP 143/72; PULSE 81; O2SAT 97; BMI 39.8
--- OUTSIDE RECORDS SUMMARY | 2025-05-21 10:15 | XMS_ITS | Patient Health Record ---
Author Organization [facility] Address [address] [place] [address] Care Team Providers Care Manager Clinical Pharmacy Name Role Phone [place] MIRANDA M.D. Primary Care Provider Nichole caleb Castellanos Jr Billy Unavailable [phone] Allergies Allergen (clinical drug ingredient) Drug/Non Drug [...] at 5:00 p.m. the day before the procedure; Duration: 1 day 12/12/2023 Active Cholestyramine Light 4 GM Oral; Duration: 30 Active Hydroxychloroquine Sulfate 2 00 MG Oral; Duration: 30 Active Immunizations Vaccine Route Administration Date [...] Problem Status W/U Status Risk Notes Problem Colon cancer screening (932305329) Colon cancer screening (Z12.11) Active confirmed Problem Pre-procedure evaluation check (794090336) Encounter for other preprocedural examination (Z01.818) Active confirmed Problem Loose stools (743662224) Loose stools (R19.5) Active confirmed Plan Of Treatment Future Test Test Name Order Date COLONOSCOPY 12/12/2023 Insurance Providers Payer Name Payer Address Payer Phone Subscriber Number Group Number Insured Name Patient Relationship to Insured Coverage Start Date Coverage End Date [employer] [place] [address] [address] [place] [address] [id number] SUE MOURA Self - patient is the insured Medical (General) History Medical History History ICD Code Inflammatory arthritis Lactose intolerance Elevated BMI Surgical History Surgery Date(Month/Year) Cholecystectomy 1992
--- OUTSIDE RECORDS SUMMARY | 2025-05-21 10:15 | XMS_ITS | Clinical Summary ---
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 Report response. Avoid trigger foods. Joint pain, knee 11/16/2017 Allergic rhinitis 11/16/2017 Overview (09/11/2023): Impression - [id number]: Continue otc meds prn. Tongue coating 11/16/2017 Overview (09/11/2023): Impression - [id number]: Culture obtained. Try nystatin suspension. See dentist. Will call with results. Impression - [id number]: Advised to see Dentist. Obesity 02/19/2011 Overview (09/11/2023): Impression - [id number]: Encouraged healthy eating, regular exercise for weight [...] of 2) 2020 COVID-19 Vaccine ( - 2024-2 6 season) 2025 Influenza (#1) 2025 PPD Discontinued [...] Time utilized. FASTING: YES Testing Performed at: [facility], [address] [place] [address], [place] [address], , Slate Handler: Farzana Camargo MD CL#[id number] Usha Goldberg [facility] Final Result PHCT CONVERSIONS from Last 3 Months or Most Recently Relevant to Health Maintenance Care Teams Electronic Publisher Relationship Specialty Start Date End Date Usha Goldberg APRN [address] [facility] [address] [place] [address] PCP - General 03/14/23 Usha Goldberg APRN [address] [place] [address] PCP - Backup PCP Internal Medicine 09/08/23
== END 2025-05-21 09:35 | disposition home or self-care (01) ==
LOC: HO.PMC 09:22
PROVIDERS: PCP Nurse Practitioner; Visit Provider Nurse Practitioner Family
DX: M54.16 Radiculopathy, lumbar region (principal); M51.369 Other intervertebral disc degeneration, lumbar region without mention of lumbar back pain or lower extremity pain; M47.817 Spondylosis without myelopathy or radiculopathy, lumbosacral region; M48.07 Spinal stenosis, lumbosacral region
CPT/HCPCS: 99213